=== PATIENT | male | born 1955 | race Caucasian/White ===

== ENCOUNTER → 2016-12-04 | Outpatient (REF) | payer OTHER ==
[~2016-12-04] MED LIST: ADV250INH INH; ASPI325T PO; FLEC50TA PO; PRIL20CA9 PO; TYLE325T5 PO; ZEBE5TAB PO
[2016-12-04 12:47] LABS: MEAN CORPUSCULAR HEMOGLOBIN 33.1 pg (27.0-33.0); MEAN CORPUSCULAR HGB CONC 33.1 g/dl (32.0-36.5); MEAN CORPUSCULAR VOLUME 99.8 fl (80.0-96.0); RED CELL DISTRIBUTION WIDTH 13.3 % (11.5-14.5); WHITE BLOOD COUNT 6.6 K/mm3 (4.0-10.0)
[2016-12-04 13:06] LABS: ALBUMIN 3.9 GM/DL (3.2-5.2); ALKALINE PHOSPHATASE 45 U/L (45-117); ALT/SGPT 23 U/L (12-78); ANION GAP 10 MEQ/L (8-16); AST/SGOT 7 U/L (15-37); BILIRUBIN,TOTAL 0.6 MG/DL (0.2-1.0); BLOOD UREA NITROGEN 10 MG/DL (7-18); CALCIUM LEVEL 9.4 MG/DL (8.5-10.1); CARBON DIOXIDE LEVEL 30 MEQ/L (21-32); CHLORIDE LEVEL 104 MEQ/L (98-107); CREATININE FOR GFR 1.08 MG/DL (0.70-1.30); GLOMERULAR FILTRATION RATE > 60.0 (>56); GLUCOSE, FASTING 88 MG/DL (70-105); SODIUM LEVEL 144 MEQ/L (136-145); TOTAL PROTEIN 7.8 GM/DL (6.4-8.2)
== END ==
LOC: M SFHCADAM 07:50
PROVIDERS: ATTEND Family Medicine
DX: I48.0 Paroxysmal atrial fibrillation (principal); Z12.5 Encounter for screening for malignant neoplasm of prostate

== ENCOUNTER → 2017-12-04 | Outpatient (REF) | payer OTHER ==
[2017-12-04 12:53] LABS: HEMATOCRIT 40.2 % (42.0-52.0); HEMOGLOBIN 13.7 g/dl (13.5-17.5); MEAN CORPUSCULAR HEMOGLOBIN 33.1 pg (27.0-33.0); MEAN CORPUSCULAR HGB CONC 34.1 g/dl (32.0-36.5); MEAN CORPUSCULAR VOLUME 97.1 fl (80.0-96.0); PLATELET COUNT, AUTOMATED 233 10^3/uL (150-450); RED BLOOD COUNT 4.14 10^6/uL (4.30-6.10); RED CELL DISTRIBUTION WIDTH 12.8 % (11.5-14.5); WHITE BLOOD COUNT 7.1 10^3/uL (4.0-10.0)
[2017-12-04 13:11] LABS: ALBUMIN 3.9 GM/DL (3.2-5.2); ALBUMIN/GLOBULIN RATIO 1.05 (1.00-1.93); ALKALINE PHOSPHATASE 46 U/L (45-117); ALT/SGPT 23 U/L (12-78); ANION GAP 4 MEQ/L (8-16); AST/SGOT 11 U/L (7-37); BILIRUBIN,TOTAL 0.5 MG/DL (0.2-1.0); BLOOD UREA NITROGEN 10 MG/DL (7-18); CALCIUM LEVEL 8.7 MG/DL (8.8-10.2); CARBON DIOXIDE LEVEL 31 MEQ/L (21-32); CHLORIDE LEVEL 108 MEQ/L (98-107); CHOLESTEROL LEVEL 182 MG/DL (<200); CHOLESTEROL RISK RATIO 2.843 (<5); CREATININE FOR GFR 0.96 MG/DL (0.70-1.30); GLOMERULAR FILTRATION RATE > 60.0 (>49); GLUCOSE, FASTING 97 MG/DL (70-100); HDL CHOLESTEROL 64 MG/DL (>40); LDL CHOLESTEROL 97.2 MG/DL (<100); NON-HDL-C 118 MG/DL; POTASSIUM SERUM 3.9 MEQ/L (3.5-5.1); PSA SCREENING 0.67 NG/ML (< 4.0); SODIUM LEVEL 143 MEQ/L (136-145); TOTAL PROTEIN 7.6 GM/DL (6.4-8.2); TRIGLYCERIDES LEVEL 104 MG/DL (<150)
== END ==
LOC: M SFHCADAM 09:18
DX: J44.9 Chronic obstructive pulmonary disease, unspecified (principal); I48.0 Paroxysmal atrial fibrillation; Z12.5 Encounter for screening for malignant neoplasm of prostate

== ENCOUNTER → 2018-05-06 | Outpatient (CLI) | payer BC, OTHER | LOC: M RAD 15:24 | DX: Z12.2 Encounter for screening for malignant neoplasm of respiratory organs (principal); Z87.891 Personal history of nicotine dependence | CPT/HCPCS: G0297 ==

== ENCOUNTER → 2018-12-24 | Outpatient (REF) | payer OTHER ==
[~2018-12-24] MED LIST changes: +ASPI-1 PO; -ASPI325T PO; +FLEC50HA PO; -FLEC50TA PO
[2018-12-24 13:10] LABS: HEMATOCRIT 44.7 % (42.0-52.0); HEMOGLOBIN 14.8 g/dl (13.5-17.5); MEAN CORPUSCULAR HEMOGLOBIN 33.1 pg (27.0-33.0); MEAN CORPUSCULAR HGB CONC 33.1 g/dl (32.0-36.5); PLATELET COUNT, AUTOMATED 280 10^3/uL (150-450); RED BLOOD COUNT 4.47 10^6/uL (4.30-6.10); WHITE BLOOD COUNT 7.6 10^3/uL (4.0-10.0)
[2018-12-24 13:28] LABS: ALBUMIN 3.4 GM/DL (3.2-5.2); ALT/SGPT 27 U/L (12-78); BILIRUBIN,TOTAL 0.4 MG/DL (0.2-1.0); BLOOD UREA NITROGEN 14 MG/DL (7-18); CALCIUM LEVEL 8.6 MG/DL (8.8-10.2); CARBON DIOXIDE LEVEL 29 MEQ/L (21-32); CHLORIDE LEVEL 104 MEQ/L (98-107); CHOLESTEROL LEVEL 212 MG/DL (<200); CHOLESTEROL RISK RATIO 3.719 (<5); CREATININE FOR GFR 1.06 MG/DL (0.70-1.30); GLOMERULAR FILTRATION RATE > 60.0 (>49); GLUCOSE, FASTING 94 MG/DL (70-100); HDL CHOLESTEROL 57 MG/DL (>40); LDL CHOLESTEROL 131 MG/DL (<100); NON-HDL-C 155 MG/DL; POTASSIUM SERUM 4.4 MEQ/L (3.5-5.1); SODIUM LEVEL 140 MEQ/L (136-145); TOTAL PROTEIN 7.6 GM/DL (6.4-8.2); TRIGLYCERIDES LEVEL 120 MG/DL (<150)
== END ==
LOC: M SFHCADAM 09:08
PROVIDERS: ATTEND Family Medicine
DX: Z12.5 Encounter for screening for malignant neoplasm of prostate (principal); E78.5 Hyperlipidemia, unspecified; I48.0 Paroxysmal atrial fibrillation; J44.9 Chronic obstructive pulmonary disease, unspecified
CPT/HCPCS: 80053; 80061; 85027; G0103

== ENCOUNTER → 2019-07-24 | Outpatient (REF) | payer OTHER | LOC: M LAB REF 18:46 | PROVIDERS: ATTEND Dermatology | DX: D22.5 Melanocytic nevi of trunk (principal) ==

== ENCOUNTER → 2019-08-14 | Outpatient (CLI) | payer BC, OTHER ==
--- NOTE | 2019-08-14 19:33 | REP ---
Chest CT without contrast: Low-dose screening exam. History: History of nicotine dependence. Comparison screening exam May 06, 2018. Comparison chest CT study December 10, 2013. CT findings: The lungs are somewhat hyperinflated on strategic marketing specialist image. There are patchy areas of subpleural fibrosis in the right lower lobe and there are emphysematous changes in the upper lobes bilaterally. The emphysematous changes are stable. The subpleural fibrotic changes in the right lower lobe appears slightly more prominent. There is some linear plate-like atelectasis in the right base as well. No significant pulmonary nodule is appreciated. Impression: Findings consistent with COPD with bilateral upper lobe emphysematous changes and scattered areas of interstitial fibrosis in the right base. The fibrotic changes are somewhat more pronounced today. Lung RADS category II pattern. Repeat screening study indicated in 1 year. Electronically Signed by Cameron Uribe MD 08/14/2019 09:14 P
== END ==
LOC: M RAD 14:24
PROVIDERS: ATTEND Internal Medicine Pulmonary Disease
DX: Z87.891 Personal history of nicotine dependence (principal); R91.8 Other nonspecific abnormal finding of lung field

== ENCOUNTER → 2020-01-13 | Outpatient (REF) | payer OTHER ==
[2020-01-13 13:07] LABS: HEMATOCRIT 37.8 % (42.0-52.0); HEMOGLOBIN 13.1 g/dl (13.5-17.5); MEAN CORPUSCULAR HEMOGLOBIN 34.7 pg (27.0-33.0); MEAN CORPUSCULAR HGB CONC 34.7 g/dl (32.0-36.5); PLATELET COUNT, AUTOMATED 238 10^3/uL (150-450); RED BLOOD COUNT 3.78 10^6/uL (4.30-6.10); WHITE BLOOD COUNT 4.6 10^3/uL (4.0-10.0)
[2020-01-13 13:13] LABS: ALBUMIN 3.5 GM/DL (3.2-5.2); ALT/SGPT 20 U/L (12-78); BILIRUBIN,TOTAL 0.5 MG/DL (0.2-1.0); BLOOD UREA NITROGEN 13 MG/DL (7-18); CALCIUM LEVEL 8.8 MG/DL (8.8-10.2); CARBON DIOXIDE LEVEL 30 MEQ/L (21-32); CHLORIDE LEVEL 107 MEQ/L (98-107); CHOLESTEROL LEVEL 180 MG/DL (<200); CHOLESTEROL RISK RATIO 3.214 (<5); CREATININE FOR GFR 1.03 MG/DL (0.70-1.30); GLOMERULAR FILTRATION RATE > 60.0 (>49); GLUCOSE, FASTING 89 MG/DL (70-100); HDL CHOLESTEROL 56 MG/DL (>40); LDL CHOLESTEROL 110 MG/DL (<100); NON-HDL-C 124 MG/DL; POTASSIUM SERUM 4.8 MEQ/L (3.5-5.1); SODIUM LEVEL 141 MEQ/L (136-145); TOTAL PROTEIN 7.1 GM/DL (6.4-8.2); TRIGLYCERIDES LEVEL 72 MG/DL (<150)
== END ==
LOC: M SFHCADAM 08:30
PROVIDERS: ATTEND Family Medicine
DX: I48.0 Paroxysmal atrial fibrillation (principal); I10 Essential (primary) hypertension; E78.5 Hyperlipidemia, unspecified; Z12.5 Encounter for screening for malignant neoplasm of prostate

== ENCOUNTER → 2020-08-18 | Outpatient (CLI) | payer BC, OTHER ==
--- NOTE | 2020-08-19 05:39 | REP ---
INDICATION: PERSONAL HISTORY OF NICOTINE DEPENDENCE COMPARISON: 08/14/2019, 05/06/2018 TECHNIQUE: Axial noncontrast images from the thoracic inlet to the upper abdomen using low-dose lung screening technique (LDCT). FINDINGS: Chronic emphysematous changes along with minimal and primarily right basilar subpleural fibrosis and trace scarring again noted. Small 3 mm nodule in the posterior subpleural right lower lobe (image 80) and small non solid 3 mm lesion in the left upper lobe (image 30) rim present new findings and likely progressive chronic change rather than suspicious lesions. No effusion. No pneumothorax. Tracheobronchial tree demonstrates mild chronic bronchiectasis. IMPRESSION: Lung-RADS category 2. Small 3 mm solid and part solid nodule lesions likely represent progressive chronic change and less likely significant acute process. Management recommendations include annual low-dose CT surveillance. <Electronically signed by Lennox Fernandez > 08/19/20 0535
== END ==
LOC: M RAD 11:11
PROVIDERS: ATTEND Internal Medicine Pulmonary Disease
DX: Z12.2 Encounter for screening for malignant neoplasm of respiratory organs (principal); R91.8 Other nonspecific abnormal finding of lung field; Z79.891 Long term (current) use of opiate analgesic

== ENCOUNTER → 2020-09-28 | Outpatient (REF) | payer BC, OTHER ==
[2020-09-28 13:27] LABS: BLOOD UREA NITROGEN 18 MG/DL (7-18); CALCIUM LEVEL 9.3 MG/DL (8.8-10.2); CARBON DIOXIDE LEVEL 31 MEQ/L (21-32); CHLORIDE LEVEL 107 MEQ/L (98-107); CREATININE FOR GFR 1.28 MG/DL (0.70-1.30); GLOMERULAR FILTRATION RATE > 60.0 (>49); GLUCOSE, FASTING 106 MG/DL (70-100); POTASSIUM SERUM 4.5 MEQ/L (3.5-5.1); SODIUM LEVEL 143 MEQ/L (136-145)
== END ==
LOC: M LABDRWAD 12:20
PROVIDERS: ATTEND Internal Medicine Cardiovascular Disease
DX: I48.19 Other persistent atrial fibrillation (principal)

== ENCOUNTER → 2020-10-26 | Outpatient (REF) | payer OTHER ==
[2020-10-26 13:40] LABS: BLOOD UREA NITROGEN 15 MG/DL (7-18); CALCIUM LEVEL 9.4 MG/DL (8.8-10.2); CARBON DIOXIDE LEVEL 32 MEQ/L (21-32); CHLORIDE LEVEL 106 MEQ/L (98-107); CREATININE FOR GFR 1.13 MG/DL (0.70-1.30); GLOMERULAR FILTRATION RATE > 60.0 (>49); GLUCOSE, FASTING 99 MG/DL (70-100); POTASSIUM SERUM 4.5 MEQ/L (3.5-5.1); SODIUM LEVEL 144 MEQ/L (136-145)
== END ==
LOC: M LABDRWAD 12:37
PROVIDERS: ATTEND Internal Medicine Cardiovascular Disease
DX: I48.19 Other persistent atrial fibrillation (principal)

== ENCOUNTER → 2021-01-31 | Outpatient (REF) | payer OTHER ==
[~2021-01-31] MED LIST changes: +BISO5TAB14; +ELIQ5TAB; +FLEC150T; +FLUT1BLS8
[2021-01-31 16:50] LABS: HEMATOCRIT 44.8 % (42.0-52.0); HEMOGLOBIN 14.5 g/dl (13.5-17.5); MEAN CORPUSCULAR HEMOGLOBIN 32.2 pg (27.0-33.0); MEAN CORPUSCULAR HGB CONC 32.4 g/dl (32.0-36.5); MEAN CORPUSCULAR VOLUME 99.6 fl (80.0-96.0); PLATELET COUNT, AUTOMATED 253 10^3/uL (150-450); WHITE BLOOD COUNT 6.9 10^3/uL (4.0-10.0)
[2021-01-31 17:20] LABS: ALBUMIN 3.4 GM/DL (3.2-5.2); ALT/SGPT 22 U/L (12-78); BILIRUBIN,TOTAL 0.4 MG/DL (0.2-1.0); BLOOD UREA NITROGEN 9 MG/DL (7-18); CALCIUM LEVEL 8.9 MG/DL (8.8-10.2); CARBON DIOXIDE LEVEL 29 MEQ/L (21-32); CHLORIDE LEVEL 105 MEQ/L (98-107); CHOLESTEROL LEVEL 180 MG/DL (<200); CHOLESTEROL RISK RATIO 3.333 (<5); CREATININE FOR GFR 1.05 MG/DL (0.70-1.30); FERRITIN 67 NG/ML (26-388); GLOMERULAR FILTRATION RATE > 60.0 (>49); GLUCOSE, FASTING 90 MG/DL (70-100); HDL CHOLESTEROL 54 MG/DL (>40); IRON (FE) 105 UG/DL (65-175); LDL CHOLESTEROL 107 MG/DL (<100); NON-HDL-C 126 MG/DL; PERCENT SATURATION 36.6 % (19.7-50.0); POTASSIUM SERUM 4.7 MEQ/L (3.5-5.1); SODIUM LEVEL 141 MEQ/L (136-145); TOTAL IRON BINDING CAPACITY 287 UG/DL (250-450); TOTAL PROTEIN 7.5 GM/DL (6.4-8.2); TRIGLYCERIDES LEVEL 97 MG/DL (<150)
[2021-01-31 17:26] LABS: FOLATE 11.7 NG/ML (>5.4)
[2021-02-01 09:00] LABS: VITAMIN B12 LEVEL 349 PG/ML (247-911)
== END ==
LOC: M SFHCADAM 11:53
PROVIDERS: ATTEND Family Medicine
DX: R06.00 Dyspnea, unspecified (principal); D64.9 Anemia, unspecified; E78.5 Hyperlipidemia, unspecified; Z12.5 Encounter for screening for malignant neoplasm of prostate
CPT/HCPCS: 80053; 80061; 82607; 82728; 82746; 83550; 85027; G0103

== ENCOUNTER 2021-06-17 07:02 | Emergency (ER) | payer BC, OTHER ==
[~2021-06-17] VITALS: Ht 182.9 cm; Wt 106.8 kg
[~2021-06-17 07:02] MED LIST changes: -BISO5TAB14; -ELIQ5TAB; -FLEC150T; -FLUT1BLS8
[2021-06-17] MEDS ORDERED: BISO5TAB14 (07:39)
[2021-06-17] MEDS ORDERED: ELIQ5TAB (07:39)
[2021-06-17] MEDS ORDERED: FLUT1BLS8 (07:39)
[2021-06-17] MEDS ORDERED: FLEC150T (07:39)
--- OUTSIDE RECORDS SUMMARY | 2021-06-17 08:18 | CCD | Continuity of Care Document ---
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 Role Phone Jevon Richardson MD [facility] [phone] Problems Description No Information Available Social History Type Date Description Comments Sex Unknown ETOH Use Occasionally consumes alcohol Tobacco Use Start: Unknown End: Unknown Patient is a former smoker Quit 2005 Smoking Status Reviewed: 01/25/20 Patient is a former smoker Qu it 2005 Allergies and adverse reactions Active Allergies Criticality Reaction | Severity Comments Date Penicillins Unable to assess criticality 09/25/2018 Medications Active Medications SIG Qnty Indications Ordering Provide r Date Omeprazole 20mg Capsules DR Unknown Advair Diskus 250-50mcg/Dose Aeros ol 1 puff twice a day Unknown Buspirone HCL 5mg Tablets Unknown Ventolin HFA 108(90Base) mcg/Act A erosol 2 puffs by mouth inhaled every 4-6 hours as needed Unknown Viagra 100mg Tablets use as d irected Unknown Immunizations CPT Code Status Date Vaccine Reaction Lot # [id number] Given 02/09/2019 Tdap/Tetanus, Di phth Toxoids/Acellular Pertussis Vac 7Yr Or > Pt tolerated well, no raction. [id number] Vital Signs Date Vital Result Comment 01/25/2020 6:36pm BP Systolic 128 mmHg BP Diastolic 90 mmHg Heart Rate 120 /min Irregular Respiratory Rate 18 /min O2 % BldC Oximetry 99 % Body Temperature 98.6 F Weight 218.00 lb Height 72 inches 6'0" BMI (Body Mass Index) 29.6 kg/m2 Pain Level 0 01/04/2020 12:13pm BP Systolic 111 mmHg BP Diastolic 80 mmHg Heart Rate 78 /min Respiratory Rate 18 /min O2 % BldC Oximetry 97 % Body Temperature 98.3 F Weight 218.00 lb Height 72 inches 6'0" BMI (Body Mass Index) 29.6 kg/m2 Pain Level 5 Results Description No Information Available Procedures Description No Information Available Medical Devices Description No Information Available Encounters Description No Information Available Assessments Date Code Description Provider 06/16/2021 Z20.828 Contact with and (ribera spected) exposure to other viral communicable diseases ROSE MARIE Tao Plan of Treatment No Information Available Functional Status Description No Information Available Mental Status Description No Information Available Referrals Description No Information Available
--- OUTSIDE RECORDS SUMMARY | 2021-06-17 08:18 | CCD | Continuity of Care Document ---
Author Author Shiva SCHMIDT MD Organization Unknown Address [address] [place] [address] Phone [phone] Care Team Providers Care Trauma Counsellor Name Role Phone Jevon Richardson M.D. AUTM [phone] Amauri Chery M.D. AUTM [phone] Problems Active Problems Provider Date Allergic rhinitis Ham Schmidt MD Onset: 07/27/2014 Atrial fibrillation Ham Schmidt MD Onset: 01/12/2014 Emphysematous bronchitis Ham Schmidt MD Onset: 02/20/20 13 Dyspnea Ham Schmidt MD Onset: 02/19/2013 Ex-smoker Ham Schmidt MD Onset: 02/19/2013 Obesity Ham Schmidt MD Onset: 02/19/2013 Social History Type Date Description Comments Sex Unknown Tobacco Use Start: Unknown End: Unknown Patient is a former smoker quit 10 years ago Smoking Status Reviewed: 04/03/21 Patient is a former smoker qu it 10 years ago Allergies, Adverse Reactions, Alerts Active Allergies Criticality Reaction | Severity Comments Date Penicillin Unable to assess criticality ?as a child 02/19/2013 Medications Active Medications SIG Qnty Indications Ordering Provide r Date Trelegy Ellipta 200- 62.5-25mcg/Inh Aerosol 1 inhalation once daily 60units J44.9 Ham Schmidt MD 04/03/[address] 1 by mouth every day 30caps Unknown Ventolin HFA 108(90Base) mcg/Act A erosol 2 puffs qid/prn 1units Unknown Flecainide Acetate 50mg Tablets 150mg twice daily Unknown Bisoprolol Fumarate 5mg Tablets 1/2 by mouth every day 30tabs Unknown Viagra 100mg Tablets as neede d Unknown History Medications Lisa Ellipta 100- 62.5-25mcg/Inh Aerosol 1 inhalation once daily 60units J44.9 Dilcia Green NJak Velarde. 02/28/2021 - 04/03/2021 Immunizations CPT Code Status Date Vaccine Lot # [id number] Given 04/24/2018 Influenza Virus Vaccine, Quadrivalent, Slit Virus, Im Use [id number] 38519 Given 05/30/2016 Influenza Virus Split 3 Yrs And Above For Intramuscular Use 32576 Given 04/11/2016 Influenza Virus Split 3 Yrs And Above For Intramuscular Use 25836 Given 05/06/2014 Influenza Virus Split 3 Yrs And Above For Intramuscular Use Q2036 Given 04/21/2013 Influenza Vaccine 3 Years Of Age Or Older (Flulaval) Q2036 Given 03/25/2012 Influenza Vaccine 3 Years Of Age Or Older (Flulaval) Vital Signs Date Vital Result Comment 04/03/2021 3:01pm BP Systolic 112 mmHg BP Diastolic 80 mmHg Heart Rate 68 /min O2 % BldC Oximetry 96 % Room Air Height 71.5 inches 5'11.50" Weight 241.00 lb BMI (Body Mass Index) 33.1 kg/m2 [place] Body Weight 172 lb Weight 109.318 kg BSA (Body Surface Area) 2.29 m2 02/28/2021 9:30am BP Systolic 126 mmHg BP Diastolic 72 mmHg Heart Rate 83 /min O2 % BldC Oximetry 96 % Height 71.5 inches 5'11.50" Weight 233.50 lb BMI (Body Mass Index) 32.1 kg/m2 [place] Body Weight 172 lb Weight 105.916 kg BSA (Body Surface Area) 2.26 m2 Results Test Acquired Date Facility Test Result H/L Range Note FVL/[place] 02/28/2021 [facility] SEE IMAGE FVC-Pred 4.93 L FVC-Pre 2.26 L FVC-%Pred-Pre 45 L FVC-LLN 3.95 L Fev1-Pred 3.70 L Fev1-Pre 1.33 L Fev1-%Pred-Pre 35 L Fev1-LLN 2.88 L Fev6-Pred 4.69 L Fev6-Pre 2.26 L Fev6-%Pred-Pre 48 L Fev6-LLN 3.75 L Zmx6tks-Bsxw 75 % Zcf1vqk-Hho 59 % Vmy5pmo-%Pred-Pre 78 % Lcw1udj-IBF 65 % Axo1eim-Ibrw 95 % Ctj7nxd-Aab 100 % Fal5jxd-%Pred-Pre 104 % FEFMax-Pred 9.33 L/E/sec FEFMax-Pre 4.55 L/E/sec FEFMax-%Pred-Pre 48 L/E/sec FEFMax-LLN 6.91 L/E/sec Qoe6515-Xnjn 2.97 L/E/sec Xtr9037-Wrj 0.75 L/E/sec Wkp8948-%Pred-Pre 25 L/E/sec Vhl4313-HJP 1.29 L/E/sec ExpTime-Pre 3.81 sec Frf8wjg4-Hvfp 79 % Kay5jkb4-Phr 59 % Qkh7mgu4-%Pred-Pre 74 % Fji5snl8-PNU 70 % Procedures Date Code Description Status 04/03/2021 81464 Office/Outpatient Established Mo d MDM 30-39 Min Completed 04/03/2021 61373 Spirometry Completed 02/28/2021 53521 Office/Outpatient Established Mo d MDM 30-39 Min Completed 02/28/2021 40932 Spirometry Completed Medical Devices Description No Information Available Encounters Type Date Location Provider Dx Diagnosis Office Visit 04/03/2021 3:00p [facility] Catherine Schmidt MD J43.9 Emphysema, unspecified Z79.02 USP (current) use of a ntithrombotics/antiplatelets Z87.891 Personal history of nicotine dependence Office Visit 02/28/2021 9:30a [facility] Tawana Green, N.P. Z87.891 Personal history of nicotine dependence J43.9 Emphysema, unspecified Assessments Date Code Description Provider 04/03/2021 J43.9 Emphysema, unspecified Ham Schmidt MD 04/03/2021 Z79.02 USP (current) use of antit hrombotics/antiplatelets Ham Schmidt MD 04/03/2021 Z87.891 Personal history of nicotine dep endence Ham Schmidt MD 02/28/2021 Z87.891 Personal history of nicotine dep endence Dilcia Green, N.PJak 02/28/2021 J43.9 Emphysema, unspecified Asha Green, N.P. Plan of Treatment Future Appointment(s):* 08/31/2021 1:30 pm - Ham Schmidt MD at [facility] 04/03/2021 - Ham Schmidt MD* J43.9 Emphysema, unspecified * Z79.02 emt intermediate (current) use of antithrombotics/antiplatelets * Z87.891 Personal history of nicotine dependence * * Comments:* ~ At this point, we will increase the dose of his Trelegy to 200 mcg Ellipta. He is to continue his rescue inhalers as need be. We discussed routine infection surveillance.~ He will be due for his last low-dose CT scan in July, as that will get us 15 years out from his smoking. He, certainly, can call sooner if problems arise with which we can be of assistance. Immunizations kept up to date through primary. * Follow up:* Follow up in four months with spirometry, oximetry and flow volume loop/ LDCT Functional Status Description No Information Available Mental Status Description No Information Available Referrals Description No Information Available
--- OUTSIDE RECORDS SUMMARY | 2021-06-17 08:18 | CCD | Continuity of Care Document ---
Author Author Shiva SCHMIDT MD Organization Unknown Address [address] [place] [address] Phone [phone] Care Team Providers Care Scale Adjuster Name Role Phone Jevon Richardson M.D. AUTM [phone] Amauri Chery M.D. AUTM [phone] Problems Active Problems Provider Date Allergic rhinitis [...] CPT Code Status Date Vaccine Lot # 35641 Given 04/24/2018 Influenza Virus Vaccine, Quadrivalent, Slit Virus, Im Use [id number] 73869 Given 05/30/2016 Influenza Virus Split 3 Yrs And Above For Intramuscular Use 07153 Given 04/11/2016 Influenza Virus Split 3 Yrs And Above For Intramuscular Use 04783 Given 05/06/2014 Influenza Virus Split 3 Yrs [...] lb BMI (Body Mass Index) 33.1 kg/m2 [place] Body Weight 172 lb Weight 109.318 kg BSA (Body Surface Area) 2.29 m2 02/28/2021 9:30am BP Systolic 126 mmHg BP Diastolic 72 mmHg Heart Rate 83 /min O2 % BldC Oximetry 96 % Height 71.5 inches 5'11.50" Weight 233.50 lb BMI (Body Mass Index) 32.1 kg/m2 [place] Body Weight 172 lb Weight 105.916 kg BSA (Body Surface Area) 2.26 m2 Results Test Acquired Date Facility Test Result H/L Range Note FVL/[place] 02/28/2021 [facility] SEE IMAGE FVC-Pred 4.93 L FVC-Pre 2.26 L FVC-%Pred-Pre 45 L FVC-LLN 3.95 L Fev1-Pred 3.70 L Fev1-Pre 1.33 L Fev1-%Pred-Pre 35 L Fev1-LLN 2.88 L Fev6-Pred 4.69 L Fev6-Pre 2.26 L Fev6-%Pred-Pre 48 L Fev6-LLN 3.75 L Icu3ugt-Lfyx 75 % Shv3owe-Ibf 59 % Snf0rhf-%Pred-Pre 78 % Yen0meg-QPR 65 % Bis7kbi-Beap 95 % Tsv8rqk-Ayx 100 % Mwq8xzt-%Pred-Pre 104 % FEFMax-Pred 9.33 L/E/sec FEFMax-Pre 4.55 L/E/sec FEFMax-%Pred-Pre 48 L/E/sec FEFMax-LLN 6.91 L/E/sec Wqd5668-Hugs 2.97 L/E/sec Qxo3943-Vre 0.75 L/E/sec Vvc4935-%Pred-Pre 25 L/E/sec Lse9452-BAN 1.29 L/E/sec ExpTime-Pre 3.81 sec Urj3www6-Vlcs 79 % Cng0krb1-Gqs 59 % Mmk1oel6-%Pred-Pre 74 % Ohp2rcx2-UZC 70 % Procedures Date Code Description Status 02/28/2021 21087 Office/Outpatient Established Mo d MDM 30-39 Min Completed 02/28/2021 51243 Spirometry Completed Medical Devices Description No Information Available Encounters Type Date Location Provider Dx Diagnosis Office Visit 02/28/2021 9:30a [facility] Tawana Green helsarpan, N.P. 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 02/28/2021 J43.9 Emphysema, unspecified Asha Green, N.P. Plan of Treatment Future Appointment(s):* 08/31/2021 1:30 pm - Ham Schmidt MD at [facility] 04/03/2021 - Ham Schmidt MD* J44.9 Chronic obstructive pulmonary disease, unspecified * J43.9 Emphysema, unspecified * Z87.891 Personal history of nicotine dependence * Z79.02 half-way (current) use of antithrombotics/antiplatelets * * New Medication:* Trelegy Ellipta 200-62.5-25 mcg/Inh * New Labs:* FVL/[place], Ordered: 04/03/21 * Follow up:* Follow up in four months with spirometry, oximetry and flow volume loop/ LDCT Functional Status Description No Information Available Mental Status Description No Information Available Referrals Description No Information Available
--- OUTSIDE RECORDS SUMMARY | 2021-06-17 08:18 | CCD | Continuity of Care Document ---
Author Author Shiva SCHMIDT MD Organization Unknown Address [address] [place] [address] Phone [phone] Care Team Providers Care Bakery Pastry Internship Name Role Phone Jevon Richardson M.D. AUTM [phone] Amauri Chery M.D. AUTM [phone] Problems Active Problems Provider Date Allergic rhinitis [...] CPT Code Status Date Vaccine Lot # 37288 Given 04/24/2018 Influenza Virus Vaccine, Quadrivalent, Slit Virus, Im Use [id number] 44529 Given 05/30/2016 Influenza Virus Split 3 Yrs And Above For Intramuscular Use 34248 Given 04/11/2016 Influenza Virus Split 3 Yrs And Above For Intramuscular Use 74237 Given 05/06/2014 Influenza Virus Split 3 Yrs [...] lb BMI (Body Mass Index) 33.1 kg/m2 [place] Body Weight 172 lb Weight 109.318 kg BSA (Body Surface Area) 2.29 m2 02/28/2021 9:30am BP Systolic 126 mmHg BP Diastolic 72 mmHg Heart Rate 83 /min O2 % BldC Oximetry 96 % Height 71.5 inches 5'11.50" Weight 233.50 lb BMI (Body Mass Index) 32.1 kg/m2 [place] Body Weight 172 lb Weight 105.916 kg BSA (Body Surface Area) 2.26 m2 Results Test Acquired Date Facility Test Result H/L Range Note FVL/[place] 02/28/2021 [facility] SEE IMAGE FVC-Pred 4.93 L FVC-Pre 2.26 L FVC-%Pred-Pre 45 L FVC-LLN 3.95 L Fev1-Pred 3.70 L Fev1-Pre 1.33 L Fev1-%Pred-Pre 35 L Fev1-LLN 2.88 L Fev6-Pred 4.69 L Fev6-Pre 2.26 L Fev6-%Pred-Pre 48 L Fev6-LLN 3.75 L Dmr3pxz-Aeav 75 % Gmv9kyv-Wdw 59 % Nnq4sap-%Pred-Pre 78 % Sdb6hwy-WRW 65 % Acz7brf-Rsbx 95 % Moh8rcj-Rgm 100 % Vxv5xdl-%Pred-Pre 104 % FEFMax-Pred 9.33 L/E/sec FEFMax-Pre 4.55 L/E/sec FEFMax-%Pred-Pre 48 L/E/sec FEFMax-LLN 6.91 L/E/sec Mwl3198-Fvrs 2.97 L/E/sec Wdx9504-Zht 0.75 L/E/sec Roj6246-%Pred-Pre 25 L/E/sec Oju6874-OFR 1.29 L/E/sec ExpTime-Pre 3.81 sec Okv1gjn4-Depk 79 % Bsj1gba8-Ywl 59 % Wfe6ahj0-%Pred-Pre 74 % Bng3miz2-UYD 70 % Procedures Date Code Description Status 02/28/2021 80512 Office/Outpatient Established Mo d MDM 30-39 Min Completed 02/28/2021 49335 Spirometry Completed Medical Devices Description No Information Available Encounters Type Date Location Provider Dx Diagnosis Office Visit 02/28/2021 9:30a [facility] Tawana Green helsarpan, N.P. 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 02/28/2021 J43.9 Emphysema, unspecified Asha Green, N.P. Plan of Treatment Future Appointment(s):* 08/31/2021 1:30 pm - Ham Schmidt MD at [facility] 04/03/2021 - Ham Schmidt MD* J44.9 Chronic obstructive pulmonary disease, unspecified * J43.9 Emphysema, unspecified * Z87.891 Personal history of nicotine dependence * Z79.02 jail (current) use of antithrombotics/antiplatelets * * New Medication:* Trelegy Ellipta 200-62.5-25 mcg/Inh * New Labs:* FVL/[place], Ordered: 04/03/21 * Follow up:* Follow up in four months with spirometry, oximetry and flow volume loop/ LDCT Functional Status Description No Information Available Mental Status Description No Information Available Referrals Description No Information Available
--- OUTSIDE RECORDS SUMMARY | 2021-06-17 08:18 | CCD | Continuity of Care Document ---
Author Author Shiva GREEN N.Prachi. Organization Unknown Address [address] [place] [address] Phone [phone] Care Team Providers Care Blasting Coal Miner Name Role Phone Jevon Richardson M.D. AUTM [phone] Amauri Chery M.D. AUTM [phone] Problems Active Problems Provider Date Allergic rhinitis [...] quit 10 years ago Smoking Status Reviewed: 02/28/21 Patient is a former smoker qu it 10 years ago Allergies, Adverse Reactions, Alerts Active Allergies Criticality Reaction | Severity Comments Date Penicillin Unable to assess criticality ?as a child 02/19/2013 Medications Active Medications SIG Qnty Indications Ordering Provide r Date Trelegy Ellipta 100- 62.5-25mcg/Inh Aerosol 1 inhalation once daily 60units J44.9 Dilcia Green, N. PJak 02/28/[address] 1 by mouth every day 30caps Unknown Ventolin HFA 108(90Base) mcg/Act A erosol 2 puffs qid/prn 1units Unknown Flecainide Acetate 50mg Tablets 150mg twice daily Unknown Bisoprolol Fumarate 5mg Tablets 1/2 by mouth every day 30tabs Unknown Viagra 100mg Tablets as neede d Unknown Immunizations CPT Code Status Date Vaccine Lot # [id number] Given 04/24/2018 Influenza Virus Vaccine, Quadrivalent, Slit Virus, Im Use [id number] 99132 Given 05/30/2016 Influenza Virus Split 3 Yrs And Above For Intramuscular Use 37289 Given 04/11/2016 Influenza Virus Split 3 Yrs And Above For Intramuscular Use 97198 Given 05/06/2014 Influenza Virus Split 3 Yrs And Above For Intramuscular Use Q2036 Given 04/21/2013 Influenza Vaccine 3 Years Of Age Or Older (Flulaval) Q2036 Given 03/25/2012 Influenza Vaccine 3 Years Of Age Or Older (Flulaval) Vital Signs Date Vital Result Comment 02/28/2021 9:30am BP Systolic 126 mmHg BP Diastolic 72 mmHg Heart Rate 83 /min O2 % BldC Oximetry 96 % Height 71.5 inches 5'11.50" Weight 233.50 lb BMI (Body Mass Index) 32.1 kg/m2 [place] Body Weight 172 lb Weight 105.916 kg BSA (Body Surface Area) 2.26 m2 08/22/2020 2:22pm BP Systolic 120 mmHg BP Diastolic 80 mmHg Heart Rate 88 /min O2 % BldC Oximetry 97 % Body Temperature 95.9 F Height 71.5 inches 5'11.50" Weight 232.00 lb BMI (Body Mass Index) 31.9 kg/m2 [place] Body Weight 172 lb Weight 105.235 kg BSA (Body Surface Area) 2.26 m2 Results Test Acquired Date Facility Test Result H/L Range Note FVL/[place] 02/28/2021 [employer] [facility] SEE IMAGE FVC-Pred 4.93 L FVC-Pre 2.26 L FVC-%Pred-Pre 45 L FVC-LLN 3.95 L Fev1-Pred 3.70 L Fev1-Pre 1.33 L Fev1-%Pred-Pre 35 L Fev1-LLN 2.88 L Fev6-Pred 4.69 L Fev6-Pre 2.26 L Fev6-%Pred-Pre 48 L Fev6-LLN 3.75 L Mdm7cta-Xwfz 75 % Tey9otw-Cfd 59 % Wmj2zmk-%Pred-Pre 78 % Vip2ecb-TEU 65 % Mzb4auq-Bwci 95 % Ufr8rbl-Fnr 100 % Rxb2hrl-%Pred-Pre 104 % FEFMax-Pred 9.33 L/E/sec FEFMax-Pre 4.55 L/E/sec FEFMax-%Pred-Pre 48 L/E/sec FEFMax-LLN 6.91 L/E/sec Azk7773-Bnjj 2.97 L/E/sec Ons4160-Kos 0.75 L/E/sec Xxk5739-%Pred-Pre 25 L/E/sec Mzj1894-RXP 1.29 L/E/sec ExpTime-Pre 3.81 sec Rfc3rbr6-Kzjv 79 % Vab9rts1-God 59 % Cvd7aya2-%Pred-Pre 74 % Miz5wag6-LKQ 70 % Procedures Date Code Description Status 02/28/2021 31640 Office/Outpatient Established Mo d MDM 30-39 Min Completed 02/28/2021 47393 Spirometry Completed Medical Devices Description No Information Available Encounters Type Date Location Provider Dx Diagnosis Office Visit 02/28/2021 9:30a [facility] Tawana Green, N.P. Z87.891 Personal history of nicotine dependence J43.9 Emphysema, unspecified Assessments Date Code Description Provider 02/28/2021 Z87.891 Personal history of nicotine dep endence Dilcia Green, N.PJak 02/28/2021 J43.9 Emphysema, unspecified Asha Green, N.P. Plan of Treatment Future Appointment(s):* 04/07/2021 9:15 am - Ham Schmidt MD at [facility] 02/28/2021 - Dilcia Green, N.P.* Z87.891 Personal history of nicotine dependence * J43.9 Emphysema, unspecified * * Follow up:* Follow up in 4-6 weeks with anthony/FVL with Dr. Schmidt. Functional Status Description No Information Available Mental Status Description No Information Available Referrals Description No Information Available
--- OUTSIDE RECORDS SUMMARY | 2021-06-17 08:18 | CCD | Continuity of Care Document ---
Author Author Shiva SCHMIDT MD Organization Unknown Address [address] [place] [address] Phone [phone] Care Team Providers Care Paving Machine Operator Name Role Phone Jevon Richardson M.D. AUTM [phone] Amauri Chery M.D. AUTM [phone] Problems Active Problems Provider Date Allergic rhinitis [...] CPT Code Status Date Vaccine Lot # [id number] Given 04/24/2018 Influenza Virus Vaccine, Quadrivalent, Slit Virus, Im Use [id number] 82205 Given 05/30/2016 Influenza Virus Split 3 Yrs And Above For Intramuscular Use 82002 Given 04/11/2016 Influenza Virus Split 3 Yrs And Above For Intramuscular Use 32831 Given 05/06/2014 Influenza Virus Split 3 Yrs [...] lb BMI (Body Mass Index) 33.1 kg/m2 [place] Body Weight 172 lb Weight 109.318 kg BSA (Body Surface Area) 2.29 m2 02/28/2021 9:30am BP Systolic 126 mmHg BP Diastolic 72 mmHg Heart Rate 83 /min O2 % BldC Oximetry 96 % Height 71.5 inches 5'11.50" Weight 233.50 lb BMI (Body Mass Index) 32.1 kg/m2 [place] Body Weight 172 lb Weight 105.916 kg BSA (Body Surface Area) 2.26 m2 Results Test Acquired Date Facility Test Result H/L Range Note FVL/[place] 02/28/2021 [facility] SEE IMAGE FVC-Pred 4.93 L FVC-Pre 2.26 L FVC-%Pred-Pre 45 L FVC-LLN 3.95 L Fev1-Pred 3.70 L Fev1-Pre 1.33 L Fev1-%Pred-Pre 35 L Fev1-LLN 2.88 L Fev6-Pred 4.69 L Fev6-Pre 2.26 L Fev6-%Pred-Pre 48 L Fev6-LLN 3.75 L Ztv0yzq-Jdcl 75 % Pcl6myv-Ykj 59 % Ewj7onn-%Pred-Pre 78 % Ych4ipv-NLG 65 % Iry5sgn-Jtcv 95 % Kxo4yim-Ltw 100 % Qrw6uxy-%Pred-Pre 104 % FEFMax-Pred 9.33 L/E/sec FEFMax-Pre 4.55 L/E/sec FEFMax-%Pred-Pre 48 L/E/sec FEFMax-LLN 6.91 L/E/sec Ams9816-Kiuz 2.97 L/E/sec Axk8233-Pel 0.75 L/E/sec Xrb6619-%Pred-Pre 25 L/E/sec Cqw9525-VBI 1.29 L/E/sec ExpTime-Pre 3.81 sec Msd1kps5-Wzdr 79 % Hkh1ymd6-Xpi 59 % Jiv0wqj2-%Pred-Pre 74 % Zmp7nml1-KMI 70 % Procedures Date Code Description Status 02/28/2021 65645 Office/Outpatient Established Mo d MDM 30-39 Min Completed 02/28/2021 49152 Spirometry Completed Medical Devices Description No Information Available Encounters Type Date Location Provider Dx Diagnosis Office Visit 02/28/2021 9:30a [facility] Pulmonary/Thoracic Tawana Green helsarpan, N.P. 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 02/28/2021 J43.9 Emphysema, unspecified Asha Green, N.P. Plan of Treatment Future Appointment(s):* 08/31/2021 1:30 pm - Ham Schmidt MD at [facility] Pulmonary/Thoracic 04/03/2021 - Ham Schmidt MD* J44.9 Chronic obstructive pulmonary disease, unspecified * J43.9 Emphysema, unspecified * Z87.891 Personal history of nicotine dependence * Z79.02 retirement (current) use of antithrombotics/antiplatelets * * New Medication:* Trelegy Ellipta 200-62.5-25 mcg/Inh * New Labs:* FVL/[place], Ordered: 04/03/21 * Follow up:* Follow up in four months with spirometry, oximetry and flow volume loop/ LDCT Functional Status Description No Information Available Mental Status Description No Information Available Referrals Description No Information Available
--- OUTSIDE RECORDS SUMMARY | 2021-06-17 08:18 | CCD | Continuity of Care Document ---
Author Author Shiva SCHMIDT MD Organization Unknown Address [address] [place] [address] Phone [phone] Care Team Providers Care Maid Housekeeper Name Role Phone Jevon Richardson M.D. AUTM [phone] Amauri Chery M.D. AUTM [phone] Problems Active Problems Provider Date Allergic rhinitis [...] CPT Code Status Date Vaccine Lot # 26050 Given 04/24/2018 Influenza Virus Vaccine, Quadrivalent, Slit Virus, Im Use [id number] 59903 Given 05/30/2016 Influenza Virus Split 3 Yrs And Above For Intramuscular Use 62114 Given 04/11/2016 Influenza Virus Split 3 Yrs And Above For Intramuscular Use 63255 Given 05/06/2014 Influenza Virus Split 3 Yrs [...] lb BMI (Body Mass Index) 33.1 kg/m2 [place] Body Weight 172 lb Weight 109.318 kg BSA (Body Surface Area) 2.29 m2 02/28/2021 9:30am BP Systolic 126 mmHg BP Diastolic 72 mmHg Heart Rate 83 /min O2 % BldC Oximetry 96 % Height 71.5 inches 5'11.50" Weight 233.50 lb BMI (Body Mass Index) 32.1 kg/m2 [place] Body Weight 172 lb Weight 105.916 kg BSA (Body Surface Area) 2.26 m2 Results Test Acquired Date Facility Test Result H/L Range Note FVL/[place] 02/28/2021 [facility] SEE IMAGE FVC-Pred 4.93 L FVC-Pre 2.26 L FVC-%Pred-Pre 45 L FVC-LLN 3.95 L Fev1-Pred 3.70 L Fev1-Pre 1.33 L Fev1-%Pred-Pre 35 L Fev1-LLN 2.88 L Fev6-Pred 4.69 L Fev6-Pre 2.26 L Fev6-%Pred-Pre 48 L Fev6-LLN 3.75 L Xec9qkr-Dxpf 75 % Wot5hpj-Aud 59 % Rve7xka-%Pred-Pre 78 % Jrl4fvw-EBN 65 % Yft3adf-Vpmm 95 % Pgh4fsz-Obz 100 % Qbr4nzd-%Pred-Pre 104 % FEFMax-Pred 9.33 L/E/sec FEFMax-Pre 4.55 L/E/sec FEFMax-%Pred-Pre 48 L/E/sec FEFMax-LLN 6.91 L/E/sec Pzf5624-Rcni 2.97 L/E/sec Sba5399-Zwh 0.75 L/E/sec Hkk0828-%Pred-Pre 25 L/E/sec Uxj1630-GRB 1.29 L/E/sec ExpTime-Pre 3.81 sec Zjp4rre9-Bnrm 79 % Cmj3yyg6-Fig 59 % Wyx2zvt7-%Pred-Pre 74 % Pkq4tdo0-TPP 70 % Procedures Date Code Description Status 02/28/2021 28119 Office/Outpatient Established Mo d MDM 30-39 Min Completed 02/28/2021 37192 Spirometry Completed Medical Devices Description No Information Available Encounters Type Date Location Provider Dx Diagnosis Office Visit 02/28/2021 9:30a [facility] Pulmonary/Thoracic Tawana Green helsarpan, N.P. 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 02/28/2021 J43.9 Emphysema, unspecified Asha Green, N.P. Plan of Treatment Future Appointment(s):* 08/31/2021 1:30 pm - Ham Schmidt MD at [facility] Pulmonary/Thoracic 04/03/2021 - Ham Schmidt MD* J44.9 Chronic obstructive pulmonary disease, unspecified * J43.9 Emphysema, unspecified * Z87.891 Personal history of nicotine dependence * Z79.02 skilled nursing (current) use of antithrombotics/antiplatelets * * New Medication:* Trelegy Ellipta 200-62.5-25 mcg/Inh * New Labs:* FVL/[place], Ordered: 04/03/21 * Follow up:* Follow up in four months with spirometry, oximetry and flow volume loop/ LDCT Functional Status Description No Information Available Mental Status Description No Information Available Referrals Description No Information Available
--- OUTSIDE RECORDS SUMMARY | 2021-06-17 08:18 | CCD | Continuity of Care Document ---
Author Author Shiva GARNETT [place] Organization Unknown Address [address] [place] [address] [place] [address] Phone [phone] Care Team Providers Care Barbering Teacher Name Role Phone Jevon Richardson MD [facility] [phone] Problems Description No Information Available Social History [...] Code Status Date Vaccine Reaction Lot # [id number] Given 02/09/2019 Tdap/Tetanus, Di phth Toxoids/Acellular Pertussis Vac 7Yr Or > Pt tolerated well, no raction. [id number] Vital Signs Date Vital Result Comment 01/25/2020 [...] Available Encounters Description No Information Available Assessments Description No Information Available Plan of Treatment No Information Available Functional Status Description No Information Available Mental Status Description No Information Available Referrals Description No Information Available
--- OUTSIDE RECORDS SUMMARY | 2021-06-17 08:18 | CCD ---
Author Author [facility] Organization [facility] Address Unknown Phone Unavailable Care Team Providers Care Etched Circuit Processor Name Role Phone Hayboom Jevon Unavailable PROBLEMS Type Condition ICD9-CM Code PHG81-RR Code Onset Dates Condition S tatus W/U Status Risk SNOMED Code Notes Problem Essential hypertension I10 Active confirmed 80381895 Problem Encounter for screening for cardiovascular disorders Z13.6 Active confirmed 591440309 Problem Encounter for lipid screening for cardiovascular disease Z13.220 Active confirmed 338777266 Problem Erectile dysfunction N52.9 Active confirmed 784913073 Problem Xanthelasma of left eye, 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 Active confirmed 1934544 Problem COPD (chronic obstructive pulmonary disease) J44.9 Active confirmed 09484562 Problem Xanthelasma of right eye, unspecified eyelid H02.6 3 Active confirmed 5445185 Problem GERD (gastroesophageal reflux disease) K21.9 A ctive confirmed 126058415 Problem Screening for prostate cancer Z12.5 Active confirm ed 276889057 Problem Episodic atrial fibrillation I48.0 Active confirme d 056877840 Problem Prophylactic vaccination against strepto coccus pneumoniae and influenza Z23 Active confirmed 025542255 Problem Other and unspecified hyperlipidemia E78.5 Act vent[place] confirmed 57471242 ALLERGIES Allergen (clinical drug ingredient) Drug/Non Drug Allergy do cumented on EMR Reaction Allergy Type Onset Date Status Penicillin (For Allergies Use Only) pt unsure Drug Allerg y Active ENCOUNTERS from 1955 to 2021-03-30 Encounter Location Date Provider Diagnosis [facility] [address] [place] [address] Mar, Jevon Richardson IMMUNIZATIONS Vaccine Route Administration Date Status Pneumococcal Adult 0.5mL Pneumovax 23 IM Intramuscular November 22 016 Administered Influenza 6mo & up Fluzone Unknown Mar 22, 2017 Admin istered Influenza 6mo & up Fluzone IM Intramuscular May 20, 2015 Admi nistered SOCIAL HISTORY Tobacco Use: Social History Observation Description Date Details (start date - stop date) Former Smoker Sex Assigned At : Social History Observation Description Sex Assigned At Unknown Education: Question Answer Notes Level of Education: High School Audit Question Answer Notes Total Score: 8 Interpretation: Simple Advice Language: Question Answer Notes Languages spoken: Rwandan Judaism: Question Answer Notes Judaism 21 [employer] Sexual Hx: Question Answer Notes Had sex in the last 12 months (vaginal, oral, or anal)? Yes Have you ever had an STD? No Prevention Strategies discussed: Other with Women only Use protection? No Drug and Alcohol Question Answer Notes Total Score: 0 Interpretation: No problems reported Tobacco Use: Question Answer Notes Are you a: former smoker How long has it been since you last smoked? > 10 years REASON FOR REFERRAL No Information VITAL SIGNS No information MEDICATIONS Medication SIG (Take, Route, Frequency, Duration) Notes Start Da te End Date Status Shingrix 50 MCG as directed Intramuscular as directed for 1 dose(s) Not-Taking Ventolin HFA 90 MCG/ACT 2 puffs as needed Inhalation qid prn for 30 d ays Active Azithromycin 250 MG 2 tablets on the first day, then 1 tablet daily for 4 days Orally Once a day for 5 day(s) Dec, N ot-Taking Omeprazole 20 MG 1 capsule Orally Once a day for 90 Active Viagra 100 MG 1/2 or 1 tablet as needed Orally daily as needed for 30 Days Apr, Active Bisoprolol Fumarate 5 MG 1 tablet Orally Once a day Active Cefdinir 300 MG TAKE ONE CAPSULE BY MOUTH EV GIGI 12 HOURS FOR 10 DAYS Oral for 10 Not-Taking Flecainide Acetate 50 MG 1 tablet Orally every 12 hrs for 90 day(s) Not-Taking Eliquis 5 MG as directed Orally bid Active Claritin 10 MG 1 tablet Orally Once a day for 90 day(s) Dec, Not-Taking Advair Diskus 250-50 MCG/DOSE 1 puff Inhalation Twice a day Active Fluticasone Propionate 50 MCG/ACT 1 spray in each nost ril Nasally Once a day for 30 day(s) Dec, Not-Taking Aspirin 325 MG 1 tablet Orally Once a day Not-Taking PROCEDURES No Information RESULTS No Results REASON FOR VISIT ventolin MEDICAL (GENERAL) HISTORY Type Description Date Medical History parox atrial fib, followed [facility]/Vik; [id number] =0, on ASA and flecanide. Holter 08/05--no at fib; admitted SVT 12/08; had AV ablation [facility] 12/08 Medical History echo 12/02, LA 39 mm, EF 65%; echo 12/08 E F 50%, LAE Medical History HTN Medical History COPD--quit smoking 2006, fol aletha GUO/Brayan; spirometry 10/04: FEV1 1.7, FVC 3.3, ratio 51%; 09/08 48%, FEV1 1.7 Medical History GERD Medical History ED Medical History CT chest (FRANCISCO J HARO; low dose CT)--emphysema, fibrosis, new nodules vs scarring 08/11 Surgical History back surgery x 2 Surgical History colonoscopy (adenomatous geri yp in 2007; 2012 done at [facility], no records here) - [facility] called 12/04/17 normal colonoscopy in 2012 2007, 05/2013 Surgical History cardiac ablasion [facility] 11/09 Hospitalization History surgery Goals Section No Information Health Concerns No Information MEDICAL EQUIPMENT No Information MENTAL STATUS No Information FUNCTIONAL STATUS No Information ASSESSMENTS No Information PLAN OF TREATMENT Medication Medication Name Sig Start Date Stop Date Ventolin HFA 90 MCG/ACT 2 puffs as needed Inhalation qid prn for 30 days Next Appt Details Provider Name:Jevon Richardson, 2021-07 09:45:00 AM, [address] , [place], [address], Insurance Providers Payer Name Payer Address Payer Phone Insured Name Patient Relati onship to Insured Coverage Start Date Coverage End Date [facility] [address] [facility] [id number] SCOTT CASTELLANOS self
--- OUTSIDE RECORDS SUMMARY | 2021-06-17 08:18 | CCD | Continuity of Care Document ---
Author Author Shiva SCHMIDT MD Organization Unknown Address [address] [place] [address] Phone [phone] Care Team Providers Care Pigment Weigher Name Role Phone Jevon Richardson M.D. AUTM [phone] Amauri Chery M.D. AUTM [phone] Problems Active Problems Provider Date Allergic rhinitis [...] CPT Code Status Date Vaccine Lot # 18280 Given 04/24/2018 Influenza Virus Vaccine, Quadrivalent, Slit Virus, Im Use [id number] 28327 Given 05/30/2016 Influenza Virus Split 3 Yrs And Above For Intramuscular Use 13345 Given 04/11/2016 Influenza Virus Split 3 Yrs And Above For Intramuscular Use 25321 Given 05/06/2014 Influenza Virus Split 3 Yrs [...] lb BMI (Body Mass Index) 33.1 kg/m2 [place] Body Weight 172 lb Weight 109.318 kg BSA (Body Surface Area) 2.29 m2 02/28/2021 9:30am BP Systolic 126 mmHg BP Diastolic 72 mmHg Heart Rate 83 /min O2 % BldC Oximetry 96 % Height 71.5 inches 5'11.50" Weight 233.50 lb BMI (Body Mass Index) 32.1 kg/m2 [place] Body Weight 172 lb Weight 105.916 kg BSA (Body Surface Area) 2.26 m2 Results Test Acquired Date Facility Test Result H/L Range Note FVL/[place] 02/28/2021 [facility] SEE IMAGE FVC-Pred 4.93 L FVC-Pre 2.26 L FVC-%Pred-Pre 45 L FVC-LLN 3.95 L Fev1-Pred 3.70 L Fev1-Pre 1.33 L Fev1-%Pred-Pre 35 L Fev1-LLN 2.88 L Fev6-Pred 4.69 L Fev6-Pre 2.26 L Fev6-%Pred-Pre 48 L Fev6-LLN 3.75 L Fzb6hak-Zysu 75 % Kvu9rqy-Pkj 59 % Nle7mdo-%Pred-Pre 78 % Irw5qsg-HGR 65 % Rew9pzn-Xugd 95 % Ccj4ayy-Kme 100 % Ntd2vob-%Pred-Pre 104 % FEFMax-Pred 9.33 L/E/sec FEFMax-Pre 4.55 L/E/sec FEFMax-%Pred-Pre 48 L/E/sec FEFMax-LLN 6.91 L/E/sec Brr0296-Zqgy 2.97 L/E/sec Evi6553-Hrg 0.75 L/E/sec Lnj5005-%Pred-Pre 25 L/E/sec Htu6319-QVL 1.29 L/E/sec ExpTime-Pre 3.81 sec Tko6qox5-Egre 79 % Fxm8gav5-Tfy 59 % Ayk0bgz3-%Pred-Pre 74 % Nou8kwn2-LUY 70 % Procedures Date Code Description Status 02/28/2021 37401 Office/Outpatient Established Mo d MDM 30-39 Min Completed 02/28/2021 96987 Spirometry Completed Medical Devices Description No Information Available Encounters Type Date Location Provider Dx Diagnosis Office Visit 02/28/2021 9:30a [facility] Pulmonary/Thoracic Tawana Green helsarpan, N.P. 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 02/28/2021 J43.9 Emphysema, unspecified Asha Green, N.P. Plan of Treatment Future Appointment(s):* 08/31/2021 1:30 pm - Ham Schmidt MD at [facility] Pulmonary/Thoracic 04/03/2021 - Ham Schmidt MD* J44.9 Chronic obstructive pulmonary disease, unspecified * J43.9 Emphysema, unspecified * Z87.891 Personal history of nicotine dependence * Z79.02 alf (current) use of antithrombotics/antiplatelets * * New Medication:* Trelegy Ellipta 200-62.5-25 mcg/Inh * New Labs:* FVL/[place], Ordered: 04/03/21 * Follow up:* Follow up in four months with spirometry, oximetry and flow volume loop/ LDCT Functional Status Description No Information Available Mental Status Description No Information Available Referrals Description No Information Available
--- OUTSIDE RECORDS SUMMARY | 2021-06-17 08:18 | CCD | Continuity of Care Document ---
Author Author Shiva SCHMIDT MD Organization Unknown Address [address] [place] [address] Phone [phone] Care Team Providers Care Cheese Production Supervisor Name Role Phone Jevon Richardson M.D. AUTM [phone] Amauri Chery M.D. AUTM [phone] Problems Active Problems Provider Date Allergic rhinitis [...] CPT Code Status Date Vaccine Lot # 03457 Given 04/24/2018 Influenza Virus Vaccine, Quadrivalent, Slit Virus, Im Use [id number] 38338 Given 05/30/2016 Influenza Virus Split 3 Yrs And Above For Intramuscular Use 57225 Given 04/11/2016 Influenza Virus Split 3 Yrs And Above For Intramuscular Use 33823 Given 05/06/2014 Influenza Virus Split 3 Yrs [...] lb BMI (Body Mass Index) 33.1 kg/m2 [place] Body Weight 172 lb Weight 109.318 kg BSA (Body Surface Area) 2.29 m2 02/28/2021 9:30am BP Systolic 126 mmHg BP Diastolic 72 mmHg Heart Rate 83 /min O2 % BldC Oximetry 96 % Height 71.5 inches 5'11.50" Weight 233.50 lb BMI (Body Mass Index) 32.1 kg/m2 [place] Body Weight 172 lb Weight 105.916 kg BSA (Body Surface Area) 2.26 m2 Results Test Acquired Date Facility Test Result H/L Range Note FVL/[place] 02/28/2021 [facility] SEE IMAGE FVC-Pred 4.93 L FVC-Pre 2.26 L FVC-%Pred-Pre 45 L FVC-LLN 3.95 L Fev1-Pred 3.70 L Fev1-Pre 1.33 L Fev1-%Pred-Pre 35 L Fev1-LLN 2.88 L Fev6-Pred 4.69 L Fev6-Pre 2.26 L Fev6-%Pred-Pre 48 L Fev6-LLN 3.75 L Ehv5nqy-Rwqe 75 % Buv4lja-Nvo 59 % Hgi4nda-%Pred-Pre 78 % Lbk0bdy-TXH 65 % Kqr3ksv-Dzct 95 % Uzt8wgo-Vqm 100 % Nxz6tbq-%Pred-Pre 104 % FEFMax-Pred 9.33 L/E/sec FEFMax-Pre 4.55 L/E/sec FEFMax-%Pred-Pre 48 L/E/sec FEFMax-LLN 6.91 L/E/sec Nor2828-Izng 2.97 L/E/sec Kxe2621-The 0.75 L/E/sec Vge6207-%Pred-Pre 25 L/E/sec Tgn7979-JSD 1.29 L/E/sec ExpTime-Pre 3.81 sec Jyf1ffu4-Fvym 79 % Cva4aau8-Mxx 59 % Ehy7grr5-%Pred-Pre 74 % Tee1rfh3-ENI 70 % Procedures Date Code Description Status 02/28/2021 90089 Office/Outpatient Established Mo d MDM 30-39 Min Completed 02/28/2021 92274 Spirometry Completed Medical Devices Description No Information Available Encounters Type Date Location Provider Dx Diagnosis Office Visit 02/28/2021 9:30a [facility] Pulmonary/Thoracic Tawana Green helsarpan, N.P. 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 02/28/2021 J43.9 Emphysema, unspecified Asha Green, N.P. Plan of Treatment Future Appointment(s):* 08/31/2021 1:30 pm - Ham Schmidt MD at [facility] Pulmonary/Thoracic 04/03/2021 - Ham Schmidt MD* J44.9 Chronic obstructive pulmonary disease, unspecified * J43.9 Emphysema, unspecified * Z87.891 Personal history of nicotine dependence * Z79.02 shelter (current) use of antithrombotics/antiplatelets * * New Medication:* Trelegy Ellipta 200-62.5-25 mcg/Inh * New Labs:* FVL/[place], Ordered: 04/03/21 * Follow up:* Follow up in four months with spirometry, oximetry and flow volume loop/ LDCT Functional Status Description No Information Available Mental Status Description No Information Available Referrals Description No Information Available
--- OUTSIDE RECORDS SUMMARY | 2021-06-17 08:18 | CCD | Continuity of Care Document ---
Author Author Shiva SCHMIDT MD Organization Unknown Address [address] [place] [address] Phone [phone] Care Team Providers Care Mold Clamper Name Role Phone Jevon Richardson M.D. AUTM [phone] Amauri Chery M.D. AUTM [phone] Problems Active Problems Provider Date Allergic rhinitis [...] CPT Code Status Date Vaccine Lot # [id number] Given 04/24/2018 Influenza Virus Vaccine, Quadrivalent, Slit Virus, Im Use [id number] 17062 Given 05/30/2016 Influenza Virus Split 3 Yrs And Above For Intramuscular Use 23474 Given 04/11/2016 Influenza Virus Split 3 Yrs And Above For Intramuscular Use 33524 Given 05/06/2014 Influenza Virus Split 3 Yrs [...] lb BMI (Body Mass Index) 33.1 kg/m2 [place] Body Weight 172 lb Weight 109.318 kg BSA (Body Surface Area) 2.29 m2 02/28/2021 9:30am BP Systolic 126 mmHg BP Diastolic 72 mmHg Heart Rate 83 /min O2 % BldC Oximetry 96 % Height 71.5 inches 5'11.50" Weight 233.50 lb BMI (Body Mass Index) 32.1 kg/m2 [place] Body Weight 172 lb Weight 105.916 kg BSA (Body Surface Area) 2.26 m2 Results Test Acquired Date Facility Test Result H/L Range Note [facility] 02/28/2021 [facility] PDFReport SEE IMAGE FVC-Pred 4.93 L FVC-Pre 2.26 L FVC-%Pred-Pre 45 L FVC-LLN 3.95 L Fev1-Pred 3.70 L Fev1-Pre 1.33 L Fev1-%Pred-Pre 35 L Fev1-LLN 2.88 L Fev6-Pred 4.69 L Fev6-Pre 2.26 L Fev6-%Pred-Pre 48 L Fev6-LLN 3.75 L Fzr2kdc-Vrpa 75 % Ydy2rtx-Eex 59 % Box4ksp-%Pred-Pre 78 % Tod2sbo-LQX 65 % Npw0rzc-Ahts 95 % Fjg4hmr-Jyw 100 % Rwi0lbz-%Pred-Pre 104 % FEFMax-Pred 9.33 L/E/sec FEFMax-Pre 4.55 L/E/sec FEFMax-%Pred-Pre 48 L/E/sec FEFMax-LLN 6.91 L/E/sec Etx4942-Kqbl 2.97 L/E/sec Buo7902-Rlk 0.75 L/E/sec Ovs2728-%Pred-Pre 25 L/E/sec Zwb0360-DTT 1.29 L/E/sec ExpTime-Pre 3.81 sec Ahx9kjw3-Wnog 79 % Lbp3nuw0-Esq 59 % Tsu2oct5-%Pred-Pre 74 % Xma0bpa6-TZQ 70 % Procedures Date Code Description Status 02/28/2021 62002 Office/Outpatient Established Mo d MDM 30-39 Min Completed 02/28/2021 76016 Spirometry Completed Medical Devices Description No Information Available Encounters Type Date Location Provider Dx Diagnosis Office Visit 02/28/2021 9:30a [facility]Th[facility]acic Tawana Green helsarpan, N.P. 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 02/28/2021 J43.9 Emphysema, unspecified Asha Green, N.P. Plan of Treatment Future Appointment(s):* 08/31/2021 1:30 pm - Ham Schmidt MD at [facility] Pulmonary/Thoracic 04/03/2021 - Ham Schmidt MD* J44.9 Chronic obstructive pulmonary disease, unspecified * J43.9 Emphysema, unspecified * Z87.891 Personal history of nicotine dependence * Z79.02 alf (current) use of antithrombotics/antiplatelets * * New Medication:* Trelegy Ellipta 200-62.5-25 mcg/Inh * New Labs:* [facility]/[place], Ordered: 04/03/21 * Follow up:* Follow up in four months with spirometry, oximetry and flow volume loop/ LDCT Functional Status Description No Information Available Mental Status Description No Information Available Referrals Description No Information Available
--- OUTSIDE RECORDS SUMMARY | 2021-06-17 08:19 | CCD ---
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 Name Role Phone Dorian, L Jolanta PA Unavailable Unavailable Dorian, L Jolanta PA Unavailable Unavailable Dorian, L Jolanta PA Unavailable Unavailable Dorian, L Jolanta PA Unavailable Unavailable Dorian, L Jolanta PA Unavailable Unavailable Dorian, L Jolanta PA Unavailable Unavailable Dorian, L Jolanta PA Unavailable Unavailable Dorian, L Jolanta PA Unavailable Unavailable Dorian, L Jolanta PA Unavailable Unavailable Dorian, L Jolanta PA Unavailable Unavailable Dorian, L Jolanta PA Unavailable Unavailable Dorian, L Jolanta PA Unavailable Unavailable Dorian, L Jolanta PA Unavailable Unavailable Dorian, L Jolanta PA Unavailable Unavailable Dorian, L Jolanta PA Unavailable Unavailable Dorian, L Jolanta PA Unavailable Unavailable Dorian, L Jolanta PA Unavailable Unavailable Dorian, L Jolanta PA Unavailable Unavailable Dorian, L Jolanta PA Unavailable Unavailable Dorian, L Jolanta PA Unavailable Unavailable Dorian, L Jolanta PA Unavailable Unavailable Dorian, L Jolanta PA Unavailable Unavailable Dorian, L Jolanta PA Unavailable Unavailable KATY, L AMY PA Unavailable Unavailable KATY, L AMY PA Unavailable Unavailable KATY, L AMY PA Unavailable Unavailable KATY, L AMY PA Unavailable Unavailable KATY, L AMY PA Unavailable Unavailable KATY, L AMY PA Unavailable Unavailable KATY, L AMY PA Unavailable Unavailable KATY, L AMY PA Unavailable Unavailable KATY, L AMY PA Unavailable Unavailable KATY, L AMY PA Unavailable Unavailable KATY, L AMY PA Unavailable Unavailable KATY, L AMY PA Unavailable Unavailable KATY, L AMY PA Unavailable Unavailable KATY, L AMY PA Unavailable Unavailable KATY, L AMY PA Unavailable Unavailable KATY, L AMY PA Unavailable Unavailable EDISON, LIANA BOBBY CURING BIN OPERATOR-C Unavailable Unavailable EDISON, LIANA BOBBY CURING BIN OPERATOR-C Unavailable Unavailable EDISON, LIANA BOBBY CURING BIN OPERATOR-C Unavailable Unavailable EDISON, LIANA BOBBY CURING BIN OPERATOR-C Unavailable Unavailable EDISON, LIANA BOBBY CURING BIN OPERATOR-C Unavailable Unavailable EDISON, LIANA BOBBY CURING BIN OPERATOR-C Unavailable Unavailable EDISON, LIANA BOBBY CURING BIN OPERATOR-C Unavailable Unavailable EDISON, LIANA BOBBY CURING BIN OPERATOR-C Unavailable Unavailable EDISON, LIANA BOBBY CURING BIN OPERATOR-C Unavailable Unavailable EDISON, LIANA BOBBY CURING BIN OPERATOR-C Unavailable Unavailable EDISON, LIANA BOBBY CURING BIN OPERATOR-C Unavailable Unavailable EDISON, LIANA BOBBY CURING BIN OPERATOR-C Unavailable Unavailable EDISON, LIANA BOBBY CURING BIN OPERATOR-C Unavailable Unavailable EDISON, LIANA BOBBY CURING BIN OPERATOR-C Unavailable Unavailable EDISON, LIANA BOBBY CURING BIN OPERATOR-C Unavailable Unavailable EDISON, LIANA BOBBY CURING BIN OPERATOR-C Unavailable Unavailable EDISON, LIANA BOBBY CURING BIN OPERATOR-C Unavailable Unavailable ZABOROWSKI, J BARBIE CHANGE CONTROL COORDINATOR Unavailable Unavailable ZABOROWSKI, J BARBIE CHANGE CONTROL COORDINATOR Unavailable Unavailable ZABOROWSKI, J BARBIE CHANGE CONTROL COORDINATOR Unavailable Unavailable ZABOROWSKI, J BARBIE CHANGE CONTROL COORDINATOR Unavailable Unavailable ZABOROWSKI, J BARBIE CHANGE CONTROL COORDINATOR Unavailable Unavailable ZABOROWSKI, J BARBIE CHANGE CONTROL COORDINATOR Unavailable Unavailable ZABOROWSKI, J BARBIE CHANGE CONTROL COORDINATOR Unavailable Unavailable ZABOROWSKI, J BARBIE CHANGE CONTROL COORDINATOR Unavailable Unavailable ZABOROWSKI, J BARBIE CHANGE CONTROL COORDINATOR Unavailable Unavailable ZABOROWSKI, J BARBIE CHANGE CONTROL COORDINATOR Unavailable Unavailable ZABOROWSKI, J BARBIE CHANGE CONTROL COORDINATOR Unavailable Unavailable ZABOROWSKI, J BARBIE CHANGE CONTROL COORDINATOR Unavailable Unavailable ZABOROWSKI, J BARBIE CHANGE CONTROL COORDINATOR Unavailable Unavailable ZABOROWSKI, J BARBIE CHANGE CONTROL COORDINATOR Unavailable Unavailable ZABOROWSKI, J BARBIE CHANGE CONTROL COORDINATOR Unavailable Unavailable ZABOROWSKI, J BARBIE CHANGE CONTROL COORDINATOR Unavailable Unavailable ZABOROWSKI, J BARBIE CHANGE CONTROL COORDINATOR Unavailable Unavailable ZABOROWSKI, J BARBIE CHANGE CONTROL COORDINATOR Unavailable Unavailable ZABOROWSKI, J BARBIE CHANGE CONTROL COORDINATOR Unavailable Unavailable ZABOROWSKI, J BARBIE CHANGE CONTROL COORDINATOR Unavailable Unavailable ZABOROWSKI, J BARBIE CHANGE CONTROL COORDINATOR Unavailable Unavailable ZABOROWSKI, J BARBIE CHANGE CONTROL COORDINATOR Unavailable Unavailable ZABOROWSKI, J BARBIE CHANGE CONTROL COORDINATOR Unavailable Unavailable ZABOROWSKI, J BARBIE CHANGE CONTROL COORDINATOR Unavailable Unavailable ZABOROWSKI, J BARBIE CHANGE CONTROL COORDINATOR Unavailable Unavailable ZABOROWSKI, J BARBIE CHANGE CONTROL COORDINATOR Unavailable Unavailable ZABOROWSKI, J BARBIE CHANGE CONTROL COORDINATOR Unavailable Unavailable ZABOROWSKI, J BARBIE CHANGE CONTROL COORDINATOR Unavailable Unavailable ZABOROWSKI, J BARBIE CHANGE CONTROL COORDINATOR Unavailable Unavailable ZABOROWSKI, J BARBIE CHANGE CONTROL COORDINATOR Unavailable Unavailable ZABOROWSKI, J BARBIE CHANGE CONTROL COORDINATOR Unavailable Unavailable ZABOROWSKI, J BARBIE CHANGE CONTROL COORDINATOR Unavailable Unavailable ZABOROWSKI, J BARBIE CHANGE CONTROL COORDINATOR Unavailable Unavailable ZABOROWSKI, J BARBIE CHANGE CONTROL COORDINATOR Unavailable Unavailable ZABOROWSKI, J BARBIE CHANGE CONTROL COORDINATOR Unavailable Unavailable ZABOROWSKI, J BARBIE CHANGE CONTROL COORDINATOR Unavailable Unavailable ZABOROWSKI, J BARBIE CHANGE CONTROL COORDINATOR Unavailable Unavailable ZABOROWSKI, J BARBIE CHANGE CONTROL COORDINATOR Unavailable Unavailable ZABOROWSKI, J BARBIE CHANGE CONTROL COORDINATOR Unavailable Unavailable ZABOROWSKI, J BARBIE CHANGE CONTROL COORDINATOR Unavailable Unavailable ZABOROWSKI, J BARBIE CHANGE CONTROL COORDINATOR Unavailable Unavailable ZABOROWSKI, J BARBIE CHANGE CONTROL COORDINATOR Unavailable Unavailable ZABOROWSKI, J BARBIE CHANGE CONTROL COORDINATOR Unavailable Unavailable ZABOROWSKI, J BARBIE CHANGE CONTROL COORDINATOR Unavailable Unavailable ZABOROWSKI, J BARBIE CHANGE CONTROL COORDINATOR Unavailable Unavailable ZABOROWSKI, J BARBIE CHANGE CONTROL COORDINATOR Unavailable Unavailable ZABOROWSKI, J BARBIE CHANGE CONTROL COORDINATOR Unavailable Unavailable ZABOROWSKI, J BARBIE CHANGE CONTROL COORDINATOR Unavailable Unavailable ZABOROWSKI, J BARBIE CHANGE CONTROL COORDINATOR Unavailable Unavailable Moses Noyola MD Unavailable Unavailable Moses Noyola MD Unavailable Unavailable Moses Noyola MD Unavailable Unavailable Moses Noyola MD Unavailable Unavailable Moses Noyola MD Unavailable Unavailable Moses Noyola MD Unavailable Unavailable Moses Noyola MD Unavailable Unavailable Moses Noyola MD Unavailable Unavailable Moses Noyola MD Unavailable Unavailable Moses Noyola MD Unavailable Unavailable Moses Noyola MD Unavailable Unavailable Moses Noyola MD Unavailable Unavailable Moses Noyola MD Unavailable Unavailable Moses Noyola MD Unavailable Unavailable Al Mudamgha, A Ali MD Unavailable Unavailable Al Mudamgha, A Ali MD Unavailable Unavailable Al Mudamgha, A Ali MD Unavailable Unavailable Al Mudamgha, A Ali MD Unavailable Unavailable Al Mudamgha, A Ali MD Unavailable Unavailable Al Mudamgha, A Ali MD Unavailable Unavailable Al Mudamgha, A Ali MD Unavailable Unavailable Al Mudamgha, A Ali MD Unavailable Unavailable Al Mudamgha, A Ali MD Unavailable Unavailable Al Mudamgha, A Ali MD Unavailable Unavailable Al Mudamgha, A Ali MD Unavailable Unavailable Al Mudamgha, A Ali MD Unavailable Unavailable Al Mudamgha, A Ali MD Unavailable Unavailable Al Mudamgha, A Ali MD Unavailable Unavailable Al Mudamgha, A Ali MD Unavailable Unavailable Al Mudamgha, A Ali MD Unavailable Unavailable Al Mudamgha, A Ali MD Unavailable Unavailable Al Mudamgha, A Ali MD Unavailable Unavailable Al Mudamgha, A Ali MD Unavailable Unavailable Al Mudamgha, A Ali MD Unavailable Unavailable Al Mudamgha, A Ali MD Unavailable Unavailable Al Mudamgha, A Ali MD Unavailable Unavailable Al Mudamgha, A Ali MD Unavailable Unavailable Al Mudamgha, A Ali MD Unavailable Unavailable Al Mudamgha, A Ali MD Unavailable Unavailable Al Mudamgha, A Ali MD Unavailable Unavailable Al Mudamgha, A Ali MD Unavailable Unavailable Al Mudamgha, A Ali MD Unavailable Unavailable Al Mudamgha, A Ali MD Unavailable Unavailable Al Mudamgha, A Ali MD Unavailable Unavailable Al Mudamgha, A Ali MD Unavailable Unavailable Al Mudamgha, A Ali MD Unavailable Unavailable Al Mudamgha, A Ali MD Unavailable Unavailable Al Mudamgha, A Ali MD Unavailable Unavailable Al Mudamgha, A Ali MD Unavailable Unavailable Al Mudamgha, A Ali MD Unavailable Unavailable Al Mudamgha, A Ali MD Unavailable Unavailable Al Mudamgha, A Ali MD Unavailable Unavailable Al Mudamgha, A Ali MD Unavailable Unavailable Al Mudamgha, A Ali MD Unavailable Unavailable Al Mudamgha, A Ali MD Unavailable Unavailable Al Mudamgha, A Ali MD Unavailable Unavailable Al Mudamgha, A Ali MD Unavailable Unavailable Al Mudamgha, A Ali MD Unavailable Unavailable Al Mudamgha, A Ali MD Unavailable Unavailable Al Mudamgha, A Ali MD Unavailable Unavailable Al Mudamgha, A Ali MD Unavailable Unavailable Al Mudamgha, Moses Rodriguez MD Unavailable Unavailable Al Mudamgha, Moses Rodriguez MD Unavailable Unavailable Al Mudamgha, Moses Rodriguez MD Unavailable Unavailable Al Mudamgha, Moses Rodriguez MD Unavailable Unavailable Al Mudamgha, Moses Rodriguez MD Unavailable Unavailable Al Mudamgha, Moses Rodriguez MD Unavailable Unavailable Al Mudamgha, Moses Rodriguez MD Unavailable Unavailable Al Mudamgha, Moses Rodriguez MD Unavailable Unavailable Al Mudamgha, Moses Rodriguez MD Unavailable Unavailable Al Mudamgha, oMses Rodriguez MD Unavailable Unavailable Al Mudamgha, Moses Rodriguez MD Unavailable Unavailable Al Mudamgha, Moses Rodriguez MD Unavailable Unavailable Al Mudamgha, Moses Rodriguez MD Unavailable Unavailable Al Mudamgha, Moses Rodriguez MD Unavailable Unavailable Al Mudamgha, Moses Rodriguez MD Unavailable Unavailable Al Mudamgha, Moses Rodriguez MD Unavailable Unavailable Al Mudamgha, Moses Rodriguez MD Unavailable Unavailable Al Mudamgha, Moses Rodriguez MD Unavailable Unavailable Al Mudamgha, Moses Rodriguez MD Unavailable Unavailable Al Mudamgha, Moses Rodriguez MD Unavailable Unavailable Al Mudamgha, Moses Rodriguez MD Unavailable Unavailable Al Mudamgha, Moses Rodriguez MD Unavailable Unavailable Al Mudamgha, Moses Rodriguez MD Unavailable Unavailable Al Mudamgha, Moses Rodriguez MD Unavailable Unavailable Al Mudamgha, Moses Rodriguez MD Unavailable Unavailable Al Mudamgha, Moses Rodriguez MD Unavailable Unavailable Al Mudamgha, Moses Rodriguez MD Unavailable Unavailable Al Mudamgha, Moses Rodriguez MD Unavailable Unavailable Al Mudamgha, Moses Rodriguez MD Unavailable Unavailable KOSTIV, JACQUIE Unavailable Unavailable Bonilla Schmidt MD Unavailable Unavailable Bonilla Schmidt MD Unavailable Unavailable Bonilla Schmidt MD Unavailable Unavailable Bonilla Schmidt MD Unavailable Unavailable Bonilla Schmidt MD Unavailable Unavailable Bonilla Schmidt MD Unavailable Unavailable Bonilla Schmidt MD Unavailable Unavailable Bonilla Schmidt MD Unavailable Unavailable Bnoilla Schmidt MD Unavailable Unavailable Bonilla Schmidt MD Unavailable Unavailable Bonilla Schmidt MD Unavailable Unavailable Bonilla Schmidt MD Unavailable Unavailable Bonilla Schmidt MD Unavailable Unavailable Bonilla Schmidt MD Unavailable Unavailable Bonilla Schmidt MD Unavailable Unavailable Bonilla Schmidt MD Unavailable Unavailable Bonilla Schmidt MD Unavailable Unavailable Bonilla Schmidt MD Unavailable Unavailable Bonilla Schmidt MD Unavailable Unavailable Bonilla Schmidt MD Unavailable Unavailable Bonilla Schmidt MD Unavailable Unavailable Bonilla Schmidt MD Unavailable Unavailable Bonilla Schmidt MD Unavailable Unavailable Bonilla Schmidt MD Unavailable Unavailable Schmidt, Bonilla Cheek MD Unavailable Unavailable Schmidt, Bonilla Cheek MD Unavailable Unavailable Schmidt, Bonilla Cheek MD Unavailable Unavailable Schmidt, Bonilla Cheek MD Unavailable Unavailable Schmidt, Bonilla Cheek MD Unavailable Unavailable Schmidt, Bonilla Cheek MD Unavailable Unavailable Schmidt, Bonlila Cheek MD Unavailable Unavailable Schmidt, Bonilla Cheek MD Unavailable Unavailable Schmidt, Bonilla Cheek MD Unavailable Unavailable Schmidt, Bonilla Cheek MD Unavailable Unavailable Schmidt, Bonilla Cheek MD Unavailable Unavailable Schmidt, Bonilla Cheek MD Unavailable Unavailable Schmidt, Bonilla Cheek MD Unavailable Unavailable Schmidt, Bonilla Cheek MD Unavailable Unavailable Schmidt, Bonilla Cheek MD Unavailable Unavailable Schmidt, Bonilla Cheek MD Unavailable Unavailable Schmidt, Bonilla Cheek MD Unavailable Unavailable Schmidt, Bonilla Cheek MD Unavailable Unavailable Schmidt, Bonilla Cheke MD Unavailable Unavailable Schmidt, Bonilla Cheek MD Unavailable Unavailable Schmidt, Bonilla Cheek MD Unavailable Unavailable Schmidt, Bonilla Cheek MD Unavailable Unavailable Schmidt, Bonilla Cheek MD Unavailable Unavailable Schmidt, Bonilla Cheek MD Unavailable Unavailable Schmidt, Bonilla Cheek MD Unavailable Unavailable Schmidt, Bonilla Cheek MD Unavailable Unavailable Schmidt, Bonilla Cheek MD Unavailable Unavailable Schmidt, Bonilla Cheek MD Unavailable Unavailable Schmidt, Bonilla Cheek MD Unavailable Unavailable Schmidt, Bonilla Cheek MD Unavailable Unavailable Al Moses Knapp MD Unavailable Unavailable Al Moses Knapp MD Unavailable Unavailable Al Moses Knapp MD Unavailable Unavailable Al Moses Knapp MD Unavailable Unavailable Al Moses Knapp MD Unavailable Unavailable Al Moses Knapp MD Unavailable Unavailable Al Moses Knapp MD Unavailable Unavailable Al Moses Knapp MD Unavailable Unavailable Al Moses Knapp MD Unavailable Unavailable Al Moses Knapp MD Unavailable Unavailable Al Moses Knapp MD Unavailable Unavailable Al Moses Knapp MD Unavailable Unavailable Al Moses Knapp MD Unavailable Unavailable Al Moses Knapp MD Unavailable Unavailable Al Moses Knapp MD Unavailable Unavailable Al Moses Knapp MD Unavailable Unavailable Al Moses Knapp MD Unavailable Unavailable Al Moses Knapp MD Unavailable Unavailable Al Moses Knapp MD Unavailable Unavailable Al Moses Knapp MD Unavailable Unavailable Al Aria, Moses Rodriguez MD Unavailable Unavailable Al Aria, Moses Rodriguez MD Unavailable Unavailable Al Aria, Moses Rodriguez MD Unavailable Unavailable Al Aria, Moses Rodriguez MD Unavailable Unavailable Al Aria, Moses Rodriguez MD Unavailable Unavailable Al Mudamgha, A Ali MD Unavailable Unavailable Al Mudamgha, A Ali MD Unavailable Unavailable Al Mudamgha, A Ali MD Unavailable Unavailable Al Mudamgha, A Ali MD Unavailable Unavailable Al Mudamgha, A Ali MD Unavailable Unavailable Al Mudamgha, A Ali MD Unavailable Unavailable Al Mudamgha, A Ali MD Unavailable Unavailable Al Mudamgha, A Ali MD Unavailable Unavailable Al Mudamgha, A Ali MD Unavailable Unavailable Al Mudamgha, A Ali MD Unavailable Unavailable Al Mudamgha, A Ali MD Unavailable Unavailable Al Mudamgha, A Ali MD Unavailable Unavailable Al Mudamgha, A Ali MD Unavailable Unavailable Al Mudamgha, A Ali MD Unavailable Unavailable Al Mudamgha, A Ali MD Unavailable Unavailable Al Mudamgha, A Ali MD Unavailable Unavailable Al Mudamgha, A Ali MD Unavailable Unavailable Al Mudamgha, A Ali MD Unavailable Unavailable Al Mudamgha, A Ali MD Unavailable Unavailable Al Mudamgha, A Ali MD Unavailable Unavailable Al Mudamgha, A Ali MD Unavailable Unavailable Al Mudamgha, A Ali MD Unavailable Unavailable Al Mudamgha, A Ali MD Unavailable Unavailable Al Mudamgha, A Ali MD Unavailable Unavailable Al Mudamgha, A Ali MD Unavailable Unavailable Al Mudamgha, A Ali MD Unavailable Unavailable Al Mudamgha, A Ali MD Unavailable Unavailable Al Mudamgha, A Ali MD Unavailable Unavailable Al Mudamgha, A Ali MD Unavailable Unavailable Al Mudamgha, A Ali MD Unavailable Unavailable Al Mudamgha, A Ali MD Unavailable Unavailable Al Mudamgha, A Ali MD Unavailable Unavailable Al Mudamgha, A Ali MD Unavailable Unavailable Al Mudamgha, A Ali MD Unavailable Unavailable Al Mudamgha, A Ali MD Unavailable Unavailable Al Mudamgha, A Ali MD Unavailable Unavailable Al Mudamgha, A Ali MD Unavailable Unavailable Al Mudamgha, A Ali MD Unavailable Unavailable Al Mudamgha, A Ali MD Unavailable Unavailable Al Mudamgha, A Ali MD Unavailable Unavailable Al Mudamgha, A Ali MD Unavailable Unavailable Al Mudamgha, A Ali MD Unavailable Unavailable Al Mudamgha, A Ali MD Unavailable Unavailable Al Mudamgha, A Ali MD Unavailable Unavailable Al Mudamgha, A Ali MD Unavailable Unavailable Al Mudamgha, A Ali MD Unavailable Unavailable Al Mudamgha, A Ali MD Unavailable Unavailable Al Mudamgha, A Ali MD Unavailable Unavailable Al Mudamgha, A Ali MD Unavailable Unavailable Al Mudamgha, A Ali MD Unavailable Unavailable Al Mudamgha, A Ali MD Unavailable Unavailable Al Mudamgha, A Ali MD Unavailable Unavailable Al Mudamgha, A Ali MD Unavailable Unavailable Al Mudamgha, A Ali MD Unavailable Unavailable Al Mudamgha, A Ali MD Unavailable Unavailable Al Mudamgha, A Ali MD Unavailable Unavailable Al Mudamgha, A Ali MD Unavailable Unavailable Al Mudamgha, A Ali MD Unavailable Unavailable Al Mudamgha, A Ali MD Unavailable Unavailable Al Mudamgha, A Ali MD Unavailable Unavailable Al Mudamgha, A Ali MD Unavailable Unavailable Al Mudamgha, A Ali MD Unavailable Unavailable Al Mudamgha, A Ali MD Unavailable Unavailable Al Mudamgha, A Ali MD Unavailable Unavailable Al Mudamgha, A Ali MD Unavailable Unavailable Re-disclosure Warning The records that you are about to access may contain information from federally-assisted alcohol or drug abuse programs. If such information is present, then the following federally mandated warning applies: This information has been disclosed to you from records protected by federal confidentiality rules (42 CFR part 2). The federal rules prohibit you from making any further disclosure of this information unless further disclosure is expressly permitted by the written consent of the person to whom it pertains or as otherwise permitted by 42 CFR part 2. A general authorization for the release of medical or other information is NOT sufficient for this purpose. The Federal rules restrict any use of the information to criminally investigate or prosecute any alcohol or drug abuse patient.The records that you are about to access may contain highly sensitive health information, the redisclosure of which is protected by Article 27-F of the [facility] Public Health law. If you continue you may have access to information: Regarding HIV / AIDS; Provided by facilities licensed or operated by the [facility] Office of Mental Health; or Provided by the [facility] Office for People With Developmental Disabilities. If such information is present, then the following [facility] mandated warning applies: This information has been disclosed to you from confidential records which are protected by state law. State law prohibits you from making any further disclosure of this information without the specific written consent of the person to whom it pertains, or as otherwise permitted by law. Any unauthorized further disclosure in violation of state law may result in a fine or detention sentence or both. A general authorization for the release of medical or other information is NOT sufficient authorization for further disc losure. Family History Family Member Name Family Member Gender Family Member Status Date o f Status Description Data Source(s) Unknown Unknown Problem [facility] ([facility]) Unknown Unknown Problem [facility] ([facility] Unknown Female Problem [facility] ([facility] Encounters Encounter Providers Location Date Indications Data Source(s ) Outpatient Attender: Ham Cm/Aris/Johnson/R eindl 04/03/2021 03:00:00 PM EDT [facility] ([facility] [place] [address] [facility] [address] 03/29/2021 12:00:00 AM EDT eCW1 ([facility]) Outpatient Attender: Michael Noyola MD BF-BF 03/01/2021 12:00:0 0 AM EDT Health system Outpatient Attender: AMY BURNS PA Main Office 02/28/2021 1 0:15:00 AM EDT MED[facility] ([facility]) Outpatient Attender: BOBBY Cm/Aris/Johnson/R eindl 02/28/2021 09:30:00 AM EDT [facility] ([facility] [place] [address] [facility] [address] 01/31/2021 12:00:00 AM EDT eCW1 ([facility]) Outpatient Attender: BARBIE FINCH NP [email or web address]-BF.[facility] 12:00:00 AM EDT - 12/13/2020 11:17:07 AM EDT [facility] Outpatient Attender: Michael Noyola MD Admitter: Mcihael Noyola MDReferrer: JACQUIE TAPIA [email or web address] 11/29/2020 07:38:00 AM EDT - 11/29/2020 01:47:00 PM EDT Health system Patient discharged. Outpatient Attender: Michael Noyola MDReferrer: Michael Cassidy MD MOB-MOB.PAT 11/24/2020 09:22:17 AM EDT - 11/24/2020 10:43:53 AM EDT Health system Outpatient Referrer: Michael Noyola MD MOB-MOB.PAT 12/2020 08:29:32 AM EDT - 11/24/2020 08:29:41 AM EDT [facility] [place] [address] [facility] [address] 11/24/2020 12:00:00 AM EDT eCW1 ([facility]) Outpatient [id number] 11/03/2020 03:22:16 PM EDT Health system Outpatient Referrer: Michael Noyola MD 11/03/2020 01:04:2 7 PM EDT [facility] Outpatient Referrer: Michael Noyola MD 09/28/2020 01:53:2 2 PM EST [facility] Outpatient Attender: Michael Noyola MD BF-BF 09/14/2020 12:00:0 0 AM EST Health system Outpatient Attender: AMY TROTTER Main Office 08/31/2020 0 9:45:00 AM EST [facility] ([facility]) Outpatient Attender: Jolanta TROTTER Main Office 06/03/2020 10:15:0 0 AM EST [facility] ([facility]) Outpatient Attender: Jolanta TROTTER Main Office 04/22/2020 07:45:0 0 AM EDT [facility] ([facility]) Immunizations Vaccine Date Status Description Data Source(s) COVID-19 VACCINE Pfizer 10/10/2020 12:00:00 AM EDT completed [facility] Vaccine Series Complete: YESThis Data wa s Submitted to [facility] Via [employer]. COVID-19 VACCINE Pfizer 09/19/2020 12:00:00 AM EST completed [facility] Vaccine Series Complete: NOThis Data was Submitted to [facility] [employer]. Medications Medication Brand Name Start Date Product Form Dose Route Admi nistrative Instructions Pharmacy Instructions Status Indications Reaction Description Data Source(s) 60 mcg (15 mcg x 4)/0.5 mL 04/28/2021 12:00:00 AM EDT [facility] [place] 0 USE DIRECTED USE DIRECTED SOLD: 04/28/2021 [facility] 200-62.5-25 mcg 04/03/2021 12:00:00 AM EDT blister with mala ce 60 INHALE ONE PUFF BY MOUTH EVERY DAY INHALE ONE PUFF BY MOUTH EVERY DAY SOLD: 04/03/2021 [facility] 200-62.5-25 mcg 04/03/2021 12:00:00 AM EDT blister with mala ce 60 INHALE ONE PUFF BY MOUTH EVERY DAY INHALE ONE PUFF BY MOUTH EVERY DAY SOLD: 05/03/2021 [facility] 200-62.5-25 mcg 04/03/2021 12:00:00 AM EDT blister with mala ce 60 INHALE ONE PUFF BY MOUTH EVERY DAY INHALE ONE PUFF BY MOUTH EVERY DAY SOLD: 06/03/2021 [facility] Trelegy Ellipta Trelegy Ellipta 04/03/2021 12:00:00 AM EDT active MEDENT ([facility], ) 150 mg 2021 12:00:00 AM EDT tablet 180 TAKE ONE TABLET BY MOUTH TWICE A DAY TAKE ONE TABLET BY MOUTH TWICE A DAY SOLD: 04/03/2021 [facility] 90 mcg/actuation 03/30/2021 12:00:00 AM EDT HFA aerosol inha ler 8 INHALE TWO PUFFS BY MOUTH FOUR TIMES A DAY NEEDED INHALE TWO PUFFS BY MOUTH FOUR TIMES A DAY NEEDED SOLD: 03/31/2021 [facility] 30 ACTUAT fluticasone furoate 0.1 MG/ACT UAT / umeclidinium 0.0625 MG/ACTUAT / vilanterol 0.025 MG/ACTUAT Dry Powder Inhaler [Trelegy] 100-62.5-25 mcg FLUTICASONE/UMECLIDIN/VILANTER 03/01/2021 12:00:00 AM EDT blister with device 60 INHALE ONE PUFF BY MOUTH EVERY DAY INHALE ONE PU FF BY MOUTH EVERY DAY SOLD: 03/03/2021 [facility] Trelegy Ellipta Trelegy Ellipta 02/28/2021 12:00:00 AM EDT completed [facility] ([facility]) Trelegy Ellipta Trelegy Ellipta 02/27/2021 12:00:00 AM EDT RESPIRATORY active [facility] ([facility]) 5 mg 02/22/2021 12:00:00 AM EDT tablet 180 TAKE ONE TABLET BY MOUTH TWICE A DAY TAKE ONE TABLET BY MOUTH TWICE A DAY SOLD: 05/26/2021 [facility] 5 mg 02/22/2021 12:00:00 AM EDT tablet 180 TAKE ONE TABLET BY MOUTH TWICE A DAY TAKE ONE TABLET BY MOUTH TWICE A DAY SOLD: 02/22/2021 [facility] Bisoprolol Fumarate 5 MG Oral Tablet Bisoprolol Fumarate 12:00:00 AM EDT ORAL active [facility] ([facility]) normal saline flush 0.9 % injection 3 mL [id number] 11/29/2020 02:00:00 PM EDT 3 mL Intravenous active 3 mL , Intravenous, Every 8 hours (scheduled), First dose on Sat11/29/20 at 1400, PACU (only)
flush per protocol, D/C Main IV fluid if appropriate
Health system Medication administered onsite fentaNYL Citrate (PF) (SUBLIMAZE) injection 25 mcg [id number] 11/29/2020 10:41:58 AM EDT 25 ug Intravenous active 25 mcg, Intravenous, Every 5 min PRN, moderate pain (4 to 6), Starting on Sat11/29/20 at 1041, For 5 doses, PACU (only) Health system Medication administered onsite ondansetron (ZOFRAN) injection 4 mg [id number] 11/29/2020 10:41:5 8 AM EDT 4 mg Intravenous active 4 mg, In travenous, Once as needed, nausea, vomiting, Starting on Sat11/29/20 at 1041, For 1 dose, PACU (only)
If not given in last 4 hours
Health system Medication administered onsite HYDROmorphone (DILAUDID) injection 0.2 mg [id number] 11/29/2020 10:41:58 AM EDT 0.2 mg Intravenous active 0.2 mg, Intravenous, Every 5 min PRN, severe pain (7-10), Starting on Sat11/29/20 at 1041, For 5 doses, PACU (only) Health system Medication administered onsite Albuterol 0.833 MG/ML / Ipratropium Brom simon 0.167 MG/ML Inhalant Solution ipratropium-albuterol (DUO-NEB) 0.5-2.5 mg/mL nebulizer solution 3 mL ipratropium-albuterol (DUO-NEB) 0.5-2.5 mg/mL nebulizer solution 3 mL 11/29/2020 10:41:58 AM EDT 3 mL Inhalation active 3 mL, Inhalation, Once as needed, shortness of breath, Starting on Sat11/29/20 at 1041, For 1 dose, PACU (only) Health system Medication administered onsite 10 ML Atropine Sulfate 0.1 MG/ML Prefill ed Syringe atropine sulfate injection 0.5 mg atropine sulfate injection 0.5 mg 11/29/2020 10:41:57 AM EDT 0.5 mg active 0.5 mg, Intrave nous Push, Every 5 min PRN, other, As needed, for heart rate less than 60 BPM and the patient is hemodynamically unstable and/or SBP is less than 90mmHg, Starting on Sat11/29/20 at 1041, For 1 day, PACU (only)
Not to exceed a total of 3 mg or 0.04 mg/kg. Max of 6 doses
Health system Medication administered onsite protamine injection [id number] 11/29/2020 10:32:30 AM EDT active As needed, Starting on Sat11/29/20 at 1032, Intra-Proc edure Health system Medication administered onsite 1 ML heparin sodium, porcine 1000 UNT/ML Injection hep irwin (porcine) injection heparin (porcine) injection 11/29/2020 10:00:31 AM EDT active As needed, Starting on Sat11/29/20 at 1000, Intra-Procedure Health system Medication administered onsite lidocaine (PF) (XYLOCAINE-MPF) 1 % injection [id number] 05/2021 09:56:53 AM EDT active As needed, Start ing on Sat11/29/20 at 0956, Intra-Procedure Health system Medication administered onsite normal saline flush 0.9 % injection 3 mL [id number] 11/29/2020 09:00:00 AM EDT 3 mL Intravenous active 3 mL , Intravenous, Every 8 hours (scheduled), First dose on Sat11/29/20 at 0900, Pre-op
Rapid push positive pressure flushing shall be performed with a 10 cc normal saline syringe to check the PATENCY of a PIV site prior to any infusion therapy initiation unless resistance is met.
Health system Medication administered onsite normal saline flush 0.9 % injection 3 mL [id number] 11/29/2020 09:00:00 AM EDT 3 mL Intravenous active 3 mL , Intravenous, Every 8 hours (scheduled), First dose on Sat11/29/20 at 0900, Pre-op
Rapid push positive pressure flushing shall be performed with a 10 cc normal saline syringe to check the PATENCY of a PIV site prior to any infusion therapy initiation unless resistance is met.
Health system Medication administered onsite 5 mg 09/16/2020 12:00:00 AM EST tablet 90 TAKE ONE TABLET BY MOUTH EVERY DAY TAKE ONE TABLET BY MOUTH EVERY DAY SOLD: 09/17/2020 [facility] 5 mg 09/16/2020 12:00:00 AM EST tablet 90 TAKE ONE TABLET BY MOUTH EVERY DAY TAKE ONE TABLET BY MOUTH EVERY DAY SOLD: 04/12/2021 [facility] 5 mg 09/16/2020 12:00:00 AM EST tablet 90 TAKE ONE TABLET BY MOUTH EVERY DAY TAKE ONE TABLET BY MOUTH EVERY DAY SOLD: 12/10/2020 [facility] Prednisone 5 MG Oral Tablet Prednisone 08/30/2020 12:00:00 AM EST active [facility] ([facility]) 10 mg 08/22/2020 12:00:00 AM EST tablet 40 TAKE 4 TABLETS BY MOUTH DAILY FOR 4 DAYS , 3 TABLETS DAILY FOR 4 DAYS , 2 TABLETS DAILY FOR 4 DAYS THEN 1 TABLET DAILY FOR 4 DAYS AND STOP TAKE 4 TABLETS BY MOUTH DAILY FOR 4 DAYS , 3 TABLETS DAILY FOR 4 DAYS , 2 TABLETS DAILY FOR 4 DAYS THEN 1 TABLET DAILY FOR 4 DAYS AND STOP SOLD: 08/23/2020 [facility] 250-50 mcg/dose 05/28/2020 12:00:00 AM EST blister with mala ce 180 INHALE ONE PUFF BY MOUTH TWICE A DAY INHALE ONE PUFF BY MOUTH TWICE A DAY SOLD: 05/31/2020 [facility] 60 ACTUAT Fluticasone propionate 0.25 MG /ACTUAT / salmeterol 0.05 MG/ACTUAT Dry Powder Inhaler [Advair] 250-50 mcg/dose FLUTICASONE PROPION/SALMETEROL 05/28/2020 12:00:00 AM EST blister with device 180 I NHALE ONE PUFF BY MOUTH TWICE A DAY INHALE ONE PUFF BY MOUTH TWICE A DAY SOLD: 12/20/2020 [facility] 250-50 mcg/dose 05/28/2020 12:00:00 AM EST blister with mala ce 180 INHALE ONE PUFF BY MOUTH TWICE A DAY INHALE ONE PUFF BY MOUTH TWICE A DAY SOLD: 09/10/2020 [facility] 20 mg 04/07/2020 12:00:00 AM EDT capsule,delayed release (DR/EC) 180 TAKE ONE CAPSULE BY MOUTH TWICE A DAY TAKE ONE CAPSULE BY MOUTH TWICE A DAY SOLD: 09/27/2020 [facility] 20 mg 04/07/2020 12:00:00 AM EDT capsule,delayed release (DR/EC) 180 TAKE ONE CAPSULE BY MOUTH TWICE A DAY TAKE ONE CAPSULE BY MOUTH TWICE A DAY SOLD: 03/17/2021 [facility] 150 mg 03/18/2020 12:00:00 AM EDT tablet 180 TAKE ONE TABLET BY MOUTH TWICE A DAY TAKE ONE TABLET BY MOUTH TWICE A DAY SOLD: 09/27/2020 [facility] 150 mg 03/18/2020 12:00:00 AM EDT tablet 180 TAKE ONE TABLET BY MOUTH TWICE A DAY TAKE ONE TABLET BY MOUTH TWICE A DAY SOLD: 01/01/2021 [facility] 150 mg 03/18/2020 12:00:00 AM EDT tablet 180 TAKE ONE TABLET BY MOUTH TWICE A DAY TAKE ONE TABLET BY MOUTH TWICE A DAY SOLD: 06/19/2020 [facility] 5 mg 02/08/2020 12:00:00 AM EDT tablet 180 TAKE ONE TABLET BY MOUTH TWICE A DAY TAKE ONE TABLET BY MOUTH TWICE A DAY SOLD: 11/17/2020 [facility] 5 mg 02/08/2020 12:00:00 AM EDT tablet 180 TAKE ONE TABLET BY MOUTH TWICE A DAY TAKE ONE TABLET BY MOUTH TWICE A DAY SOLD: 05/13/2020 [facility] 5 mg 02/08/2020 12:00:00 AM EDT tablet 180 TAKE ONE TABLET BY MOUTH TWICE A DAY TAKE ONE TABLET BY MOUTH TWICE A DAY SOLD: 08/13/2020 [facility] 90 mcg/actuation 11/23/2019 12:00:00 AM EDT HFA aerosol inha ler 8 INHALE 2 PUFFS FOUR TIMES A DAY NEEDED INHALE 2 PUFFS FOUR TIMES A DAY NEEDED SOLD: 06/03/2020 [facility] 90 mcg/actuation 11/23/2019 12:00:00 AM EDT HFA aerosol inha ler 8 INHALE 2 PUFFS FOUR TIMES A DAY NEEDED INHALE 2 PUFFS FOUR TIMES A DAY NEEDED SOLD: 11/03/2020 [facility] 5 mg 09/22/2019 12:00:00 AM EST tablet 90 TAKE ONE TABLET BY MOUTH EVERY DAY TAKE ONE TABLET BY MOUTH EVERY DAY SOLD: 06/19/2020 [facility] Insurance Providers Payer name Policy type / Coverage type Policy ID Covered libertarian ID Covered libertarian's relationship to cherry Policy Cherry Plan Information [facility] [id number] xxxxxxxxxxxx [id number] Elisabet YLS [id number] INSURANCE COVID-19 COVID Elisabet C OVID INSURANCE COVID-19 COVID Elisabet C OVID INSURANCE COVID-19 [id number] [facility] PI PI ANSI-Commercial [id number] [facility] Maintenance [facility] ([facility]) [id number] Self [id number] ANSI-Commercial [id number] ANSI-Commercial [id number] ANSI-Commercial [id number] [employer] [facility] Commercial [id number] Self [id number] [facility] Commercial [id number] Self [id number] ANS-Commercial [id number] [facility] Health Maintenance Organization ([facility]) [id number] Self [id number] [facility] Health Maintenance Organization (O) [id number] Self [id number] [facility] O [id number] S [id number] [employer] Commercial [id number] Self [facility] [id number] SP [id number] [facility] [employer] [facility] Health Maintenance Organization (HMO) [id number] Self BCBS EMPIRE NITZA DIV [id number] SP [id number] EMPIRE BLUE CROSS BLUE SHIELD-O/P [id number] 18 [id number] [facility] [id number] 18 [id number] EMPIRE BLUE CROSS BLUE SHIELD-O/P [id number] 18 [id number] EMPIRE BLUE CROSS BLUE SHIELD-O/P [id number] 18 [id number] EMPIRE BLUE CROSS BLUE SHIELD-O/P [id number] 18 [id number] [facility] [id number] SP [id number] BCBS EMPIRE NITZA DIV [id number] SP [id number] [facility] [id number] SP [id number] BCBS EMPIRE NITZA DIV [id number] SP [id number] [facility] [employer] [id number] Self [id number] Problems, Conditions, and Diagnoses Code Display Name Description Problem Type Effective Dates Data Source(s) I48.19 Other persistent atrial fibrillation Oth er persistent atrial fibrillation Diagnosis 03/01/2021 07:59:55 AM EDT Health system U07.1 COVID-19 COVID-19 Diagnosis 11/24/2020 08:29:32 AM ED T Health system I48.19 Persistent atrial fibrillation Persistent atrial fibri llation [id number] 09/20/2020 12:00:00 AM EST Health system Surgeries/Procedures Procedure Description Date Indications Data Source(s) Spirometry 04/03/2021 12:00:00 AM EDT [facility] OFFICE OUTPATIENT VISIT 25 MINUTES 04/03/2021 12:00:00 AM EDT [facility] ([facility]) Spirometry 02/28/2021 12:00:00 AM EDT [facility] ([facility]) OFFICE OUTPATIENT VISIT 25 MINUTES 02/28/2021 12:00:00 AM EDT [facility]) ECG ROUTINE ECG W/LEAST 12 LDS W/I&R 02/28/2021 12:00: 00 AM EDT [facility] ([facility]) OFFICE OUTPATIENT VISIT 25 MINUTES 02/28/2021 12:00:00 AM EDT [facility] ([facility]) XTRNL ECG < 48 HR RECORDING 01/31/2021 12:00:00 AM EDT [facility] ([facility]) XTRNL ECG CONTINUOUS RHYTHM PHYS REVIEW&INTERPJ 2020 12:00:00 AM EDT [facility] ([facility]) XTRNL ECG < 48 HR RECORDING 12/28/2020 12:00:00 AM EDT [facility] ([facility]) XTRNL ECG CONTINUOUS RHYTHM PHYS REVIEW&INTERPJ 2020 12:00:00 AM EDT [facility] ([facility]) ECG ROUTINE ECG W/LEAST 12 LDS W/I&R <td>POCT AMB EKG</td><td>Routine</td><td>12/13/2020 11:19 AM EDT</td><td> Persistent atrial fibrillation</td><td> </td> 12/13/2020 11:19:00 AM EDT Persistent atrial fibrillation [facility] Persistent atrial fibrillation EP STUDY <td>EP STUDY</td><td>Routine </td><td>11/29/2020 10:29 AM EDT</td><td> Persistent atrial fibrillation</td><td> </td> 11/29/2020 10:29:48 AM EDT Persistent atrial fibrillation [facility] Persistent atrial fibrillation ECG ROUTINE ECG W/LEAST 12 LDS TRCG ONLY W/O I&R <td>E CG 12- LEAD</td><td>Routine</td><td>11/24/2020 10:40 AM EDT</td><td> Persistent atrial fibrillation</td><td></td> 11/24/2020 10:40:14 AM EDT Persistent atrial fibrillation Health system Persistent atrial fibrillation BLOOD COUNT COMPLETE AUTOMATED <td>CBC</td><td>Routine </td><td>11/24/2020 10:35 AM EDT</td><td> Persistent atrial fibrillation</td><td> </td> 11/24/2020 10:35:00 AM EDT Persistent atrial fibrillation [facility] Persistent atrial fibrillation BLOOD TYPING ABO <td>TYPE AND SCREEN</td><td> Routine</td><td>11/24/2020 10:35 AM EDT</td><td> Persistent atrial fibrillation</td><td> </td> 11/24/2020 10:35:00 AM EDT Persistent atrial fibrillation [facility] Persistent atrial fibrillation BASIC METABOLIC PANEL CALCIUM TOTAL <td>BASIC METABOLI C PANEL</td><td>Routine</td><td>11/24/2020 10:35 AM EDT</td><td> Persistent atrial fibrillation</td><td> </td> 11/24/2020 10:35:00 AM EDT Persistent atrial fibrillation [facility] Persistent atrial fibrillation ECG ROUTINE ECG W/LEAST 12 LDS W/I&R 08/31/2020 12:00: 00 AM EST [facility] ([facility]) OFFICE OUTPATIENT VISIT 25 MINUTES 08/31/2020 12:00:00 AM EST [facility] ([facility]) ECG ROUTINE ECG W/LEAST 12 LDS W/I&R 06/03/2020 12:00: 00 AM EST [facility] ([facility]) ECHO TTHRC R-T 2D W/WOM-MODE COMPL SPEC&COLR DOP 05/31 12:00:00 AM EST [facility] ([facility]) ECG ROUTINE ECG W/LEAST 12 LDS W/I&R 04/22/2020 12:00: 00 AM EDT [facility] ([facility]) Results ID Date Data Source [id number] 03/01/2021 12:15:19 PM EDT [facility] INFORMATIONPatient MRN Name Date of Age Gend*PT [id number] Scott Billings 1955 65 years M ---PT Location Admission Date/Time Visit ID Attending Provider --- --- --- --- EPI ID CSN Admitting Provider [id number] ---[facility] [address] [facility], [address] (First Floor)[place], [place] [address]Dc.: Fax: Matient: Scott Billings : 1955Date: 03/01/21CARDIOLOGY TELEMEDICINE VISITPatient was identified by name and date of .Verbal consent was obtained from the patient for this telemedicine visit.Patient is aware of the risks, limitations, and benefits of a telemedicinevisit.This telemedicine assessment was conducted remotely with the assistance ofFaves communication technology. Telephone Only Codes [id number]: 21-30 minutesof medical discussion: Telephone Only .Subjective:Scott Billings is 65 years male with atrial fibrillationHISTORY OF PRESENT ILLNESS: Patient is evaluated today for his atrialfibrillation. Since his cryoablation he has not had any documented recurrenceof his atrial fibrillation. He was at his neck pinner office yesterday and hadan EKG. I am able to review it and it confirms sinus rhythm. He denies anypalpitations. He denies any chest pain or shortness of breath. He denies anysyncope.PHx:1. History of typical atrial flutter status post ablation December 24. Recurrence of atrial flutter. The patient underwent repeat EP testing hewas in sinus rhythm. There was bidirectional isthmus conduction and heunderwent re-ablation.3. Questionable atrial fibrillation4. COPD5. Status post cryoablation for atrial fibrillation . Question of sleep apneaFAMILY HISTORY: family history includes Colon cancer in his mother; Heartdisease in his father and sister.SOCIAL HISTORY: reports that he quit smoking about 13 years ago. His smokinguse included cigarettes. He has a 45.00 pack-year smoking history. He has neverused smokeless tobacco. He reports current alcohol use of about 12.0 standarddrinks of alcohol per week. He reports previous drug use. Drug: Marijuana.REVIEW OF SYSTEMS: Constitutional: Denies any. Denies fever, chills, weightloss or gain. Eyes: Denies blindness. Cardiovascular: Denies rotations.Respiratory: Denies shortness of breath and dyspnea on exertion. GI: Deniesabdominal pain, nausea or vomiting. : Denies dysuria or hematuria.Musculoskeletal: Negative lower extremity edema. Integumentary: Denies rash.Neurologic: Denies seizures. Psychiatric: Denies depression or anxiety.Hematologic: Denies anemia.Current Outpatient Medications: ADVAIR DISKUS 250-50 MCG/DOSE DISKUS, Inhale 1 puff 2 (two) times a day ,Disp: , Rfl: 5 albuterol (PROVENTIL HFA;VENTOLIN HFA) 108 (90 Base) MCG/ACT inhaler, Inhale4 puffs every 6 (six) hours as needed for wheezing, Disp: , Rfl: Apixaban (ELIQUIS) 5 MG TABS tablet, Take 1 tablet (5 mg total) by mouth 2(two) times a day, Disp: 60 tablet, Rfl: 5 bisoprolol (ZEBETA) 5 MG tablet, Take 5 mg by mouth daily 1/2 QD, Disp: ,Rfl: flecainide (TAMBOCOR) 150 MG tablet, Take 150 mg by mouth 2 (two) times a day, Disp: , Rfl: naproxen sodium (Aleve) 220 MG tablet, Take 440 mg by mouth daily as neededfor pain, Disp: , Rfl: omeprazole (PRILOSEC) 20 MG capsule, Take 20 mg by mouth daily , Disp: , Rfl: sildenafil (VIAGRA) 100 MG tablet, Take 100 mg by mouth daily as needed forerectile dysfunction, Disp: , Rfl:ALLERGIES: is allergic to penicillins.Objective:PHYSICAL EXAMINATION: Deferred due to Telemedicine encounterSTUDIES REVIEWED: Last office note, EKG from neck pinner office 02/28/2021 aswell as ablation reportEKG: Deferred due to telemedicine encounter.Assessment/Plan:ASSESSMENT/PLAN: This is a supraventricular and atrial fibrillation status postablation doing very well. I reminded the patient it is too soon to know whetheror not he will have long-term relief but I am very encouraged. I wouldrecommend no change in his current medical regimen. We will continue to followwith Dr. Humphrey. If over the course of the next 3 to 6 months he remainsarrhythmia free I would recommend stopping his flecainide.I have spent 15 minutes with the patient, counseling/coordinating the patient'scare. I discussed the diagnosis of atrial fibrillation and discussed Managementoption risks and benefitsFollow Up as neededSignature: Michael Knapp MD, [facility], [facility]ITALCardiac Electrophysiology and Arrhythmia ServiceDate: March 01, 2021Time: 12:11 PMThis document or parts of this document, were dictated using Soundayware. A reasonable attempt at proofreading has been made to minimize errors.Please call with any questions or corrections. Name Value Range Interpretation Code Description Data Philomena rce(s) Supporting Document(s) ID Date Data Source [id number] 02/28/2021 09:29:00 AM EDT [facility] ([facility], ) Name Value Range Interpretation Code Description Data Philomena rce(s) Supporting Document(s) FVC-Pred 4.93 L [facility] ([facility]) PDFReport Laboratory test result [facility] ([facility]) FVC-%Pred-Pre 45 L [facility] ([facility]) FVC-Pre 2.26 L [facility] ([facility]) FVC-LLN 3.95 L [facility] ([facility]) Fev1-Pre 1.33 L [facility] ([facility]) Fev1-Pred 3.70 L [facility] ([facility]) Fev1-%Pred-Pre 35 L [facility] ([facility]) Fev1-LLN 2.88 L [facility] ([facility]) Fev6-Pred 4.69 L [facility] ([facility]) Fev6-Pre 2.26 L [facility] ([facility]) Fev6-%Pred-Pre 48 L [facility] ([facility]) Fev6-LLN 3.75 L [facility] ([facility]) Kfq6uns-Ewbc 75 % [facility] ([facility]) Xly0ncm-Bmn 59 % [facility] ([facility]) Ejr1xsn-%Pred-Pre 78 % [facility] ([facility]) Wnj8bba-XHH 65 % [facility] ([facility]) Ngf3vku-Vcn 100 % [facility] ([facility]) Dox5wfj-Rmlx 95 % [facility] ([facility]) Iiu4vla-%Pred-Pre 104 % [facility] ([facility]) FEFMax-Pred 9.33 L/E/sec [facility] ([facility]) FEFMax-Pre 4.55 L/E/sec [facility] ([facility]) FEFMax-%Pred-Pre 48 L/E/sec [facility] ([facility]) FEFMax-LLN 6.91 L/E/sec [facility] ([facility]) Utq6338-Zqiq 2.97 L/E/sec [facility] ([facility]) Gjr7525-%Pred-Pre 25 L/E/sec [facility] ([facility]) Oxc9933-Qjf 0.75 L/E/sec [facility] ([facility]) Icv2ska4-Xgjh 79 % [facility] ([facility]) Lgr7554-IID 1.29 L/E/sec [facility] ([facility]) ExpTime-Pre 3.81 sec [facility] ([facility]) Ovx0btz8-Bue 59 % [facility] ([facility]) Txz9qvg7-%Pred-Pre 74 % [facility] ([facility]) Bpr2ori7-NBY 70 % [facility] ([facility]) ID Date Data Source [id number] 01/31/2021 09:40:00 AM EDT [facility] Name Value Range Interpretation Code Description Data Philomena rce(s) Supporting Document(s) Cholesterol 180 [facility] ([facility]) Triglycerides 97 [facility] ([facility]) HDL 54 [facility] Cholesterol in LDL [Mass/volume] in Serum or Plasma by calculation 10 7 [facility] ([facility]) Chol/HDL Ratio 3.333 [facility] ([facility] ID Date Data Source [id number] 01/31/2021 09:40:00 AM EDT [facility] ([facility]) Name Value Range Interpretation Code Description Data Philomena rce(s) Supporting Document(s) Albumin [Mass/volume] in Serum or Plasma 3.4 [facility] ([facility]) Calcium [Mass/volume] in Serum or Plasma 8.9 [facility] ([facility]) Alanine aminotransferase [Enzymatic activity/volume] in Serum or Pl asma 22 [facility] ([facility]) Carbon dioxide, total [Moles/volume] in Serum or Plasma 29 [facility] ([facility]) Chloride [Moles/volume] in Serum or Plasma 105 [facility] ([facility]) Potassium [Moles/volume] in Serum or Plasma 4.7 [facility] ([facility]) Alkaline phosphatase [Enzymatic activity/volume] in Serum or Plasma 5 7 [facility] ([facility]) Sodium 141 [facility] ([facility] Protein [Mass/volume] in Serum or Plasma 7.5 [facility] ([facility]) Aspartate aminotransferase [Enzymatic activity/volume] in Serum or Plasma 14 [facility] ([facility]) Urea nitrogen [Mass/volume] in Serum or Plasma 9 [facility] ([facility]) Glucose 90 83-110 [facility] ([facility] Creatinine For GFR 1.05 [facility] ([facility]) ID Date Data Source [id number] 01/31/2021 09:40:00 AM EDT [facility] ([facility]) Name Value Range Interpretation Code Description Data Philomena rce(s) Supporting Document(s) White Blood Count 6.9 5.0-10.0 [facility] ([facility]) Red Blood Count 4.50 4.00-5.40 [facility] ([facility]) Platelets 253 172-450 [facility] Hemoglobin 14.5 [facility] ([facility]) Hematocrit 44.8 [facility] ([facility]) ID Date Data Source [id number] 01/31/2021 12:00:00 AM EDT [id number] ([facility]) Name Value Range Interpretation Code Description Data Philomena rce(s) Supporting Document(s) 349 330-437 VITAMIN B12 LEVEL eCW1 ([facility]) ID Date Data Source TOTAL IRON BINDING CAPACIT 01/31/2021 12:00:00 AM EDT eCW1 ( [facility]) Name Value Range Interpretation Code Description Data Philomena rce(s) Supporting Document(s) 105 65-175 IRON (FE) eCW1 ([facility]) 287 250-450 TOTAL IRON BINDING CAPACI TY eCW1 ([facility]) 36.6 19.7-50.0 PERCENT SATURATION eCW1 ([facility]) ID Date Data Source PSA SCREENING 01/31/2021 12:00:00 AM EDT eCW1 ([facility]) Name Value Range Interpretation Code Description Data Philomena rce(s) Supporting Document(s) 0.64 < 4.00 PSA SCREENING eCW1 ([facility]) ID Date Data Source LIPID PANEL (CARDIAC RISK) 01/31/2021 12:00:00 AM EDT eCW1 ( [facility]) Name Value Range Interpretation Code Description Data Philomena rce(s) Supporting Document(s) Cholesterol [Moles/volume] in Serum or Plasma 180 <200 CHOLESTEROL LEVEL eCW1 ([facility]) Triglyceride [Mass/volume] in Serum or Plasma by calculation 97 <150 TRIGLYCERIDES LEVEL eCW1 ([facility]) 126 NON-HDL-C eCW1 ([facility]) Cholesterol in HDL [Moles/volume] in Serum or Plasma 54 >40 HDL CHOLESTEROL eCW1 ([facility]) Cholesterol in LDL [Mass/volume] in Serum or Plasma by calculation 107 <100 LDL CHOLESTEROL eC ([facility]) 3.333 <5 CHOLESTEROL RISK RATIO eCW1 ([facility]) ID Date Data Source FOLATE 01/31/2021 12:00:00 AM EDT eCW1 ([facility]) Name Value Range Interpretation Code Description Data Philomena rce(s) Supporting Document(s) 11.7 >5.4 FOLATE eCW1 ([facility]) ID Date Data Source FERRITIN 01/31/2021 12:00:00 AM EDT eCW1 ([facility]) Name Value Range Interpretation Code Description Data Philomena rce(s) Supporting Document(s) 67 26-388 FERRITIN eCW1 ([facility]) ID Date Data Source Comprehensive Metabolic Profile (CMP) 01/31/2021 12:00:00 AM EDT eCW1 ([facility]) Name Value Range Interpretation Code Description Data Philomena rce(s) Supporting Document(s) 90 70-100 GLUCOSE, FASTING eCW1 ([facility]) 1.05 0.70-1.30 CREATININE FOR GFR eCW1 ([facility]) 9 7-18 BLOOD UREA NITROGEN eCW1 ([facility]) 141 136-145 SODIUM LEVEL eCW1 ([facility]) 4.7 3.5-5.1 POTASSIUM SERUM eCW1 ([facility]) > 60.0 >49 GLOMERULAR FILTRATION RATE eCW 1 ([facility]) 105 98-107 CHLORIDE LEVEL eCW1 ([facility]) 29 21-32 CARBON DIOXIDE LEVEL eCW1 [facility]) 8.9 8.8-10.2 CALCIUM LEVEL eCW1 ([facility]) 22 12-78 ALT/SGPT eCW1 ([facility]) 0.4 0.2-1.0 BILIRUBIN,TOTAL eCW1 ([facility]) 14 7-37 AST/SGOT eCW1 ([facility]) 57 45-117 ALKALINE PHOSPHATASE eCW1 ([facility]) 0.8 ALBUMIN/GLOBULIN RATIO eCW1 ([facility]) 7.5 6.4-8.2 TOTAL PROTEIN eCW1 ([facility]) 3.4 3.2-5.2 ALBUMIN eCW1 ([facility]) ID Date Data Source CBC - Complete Blood Count 01/31/2021 12:00:00 AM EDT eCW1 ( [facility]) Name Value Range Interpretation Code Description Data Philomena rce(s) Supporting Document(s) 4.50 4.30-6.10 RED BLOOD COUNT eCW1 ([facility]) 6.9 4.0-10.0 WHITE BLOOD COUNT eCW1 ([facility]) 44.8 42.0-52.0 HEMATOCRIT eCW1 ([facility]) 99.6 80.0-96.0 MEAN CORPUSCULAR VOLUME e CW1 ([facility]) 14.5 13.5-17.5 HEMOGLOBIN eCW1 ([facility]) 32.4 32.0-36.5 MEAN CORPUSCULAR HGB CONC eCW1 ([facility]) 13.2 11.5-14.5 RED CELL DISTRIBUTION WID TH eCW1 ([facility]) 32.2 27.0-33.0 MEAN CORPUSCULAR HEMOGLOB IN eCW1 ([facility]) 253 150-450 PLATELET COUNT, AUTOMATED eCW1 ([facility]) ID Date Data Source [id number] 12/13/2020 11:22:49 AM EDT [facility] INFORMATIONPatient MRN Name Date of Age Gend*PT [id number] Scott Billings 1955 65 years M ---PT Location Admission Date/Time Visit ID Attending Provider --- --- --- --- EPI ID CSN Admitting Provider [id number] ---Cardiology Office NoteName: Scott Billings Gender: maleDate of : 1955 Age: 65 yearsPrimary Care Provider / Referring Physician: THEA GARDNERurrent HistoryChief Complaint: Follow-up to recent cryoablation for atrial fibrillationHPI:This patient is a 65 years male presents today for follow-up. He has thefollowing medical problem list:1. History of typical atrial flutter status post ablation December 24. Recurrence of atrial flutter. The patient underwent repeat EP testing hewas in sinus rhythm. There was bidirectional isthmus conduction and heunderwent re-ablation.3. Questionable atrial fibrillation4. COPD5. Status post cryoablation for atrial fibrillation . Question of sleep apneaPatient presents today for follow-up. We did review his recent procedure. Heis in normal sinus rhythm based on today's EKG.. The patient tells me that hehas not had any difficulty swallowing. He denies any fevers, chills, sweats.He has not had any chest pain or pressure. He does admit to some shortness ofbreath but he is also known COPD and does follow with pulmonary for that. Hedenies any lower extremity edema and his site is healing without incident. Idid question him regarding sleep apnea. He tells me that he did have a test awhile ago and has not heard results. I did review with him the importance oftreating sleep apnea if he does have it and he will follow-up with PCP inregards to this issue. He does follow with Dr Norwood's office for primarycardiology.Review of Systems General Denies dizziness or lightheadedness. Denies any recent, unexpectedweight changes. HEENT Denies any loss or change of vision. Denies tinnitus. Respiratory Denies PND, orthopnea, ORTIZ, hemoptysis, cough, or shortness ofbreath. Cardiac Denies chest pain or pressure, denies palpitations GI Denies melena, hematochezia, nausea, or vomiting. MS Denies any lower extremity edema. Neuro Denies speech, motor, or sensory impairment. Psych Denies depression or anxiety. Endo Denies polyuria or polydipsia, denies temperature intolerance. Derm Denies diaphoresis, non-healing skin woundsPast HistoryPast Medical History:Diagnosis Date Asthma Atrial fibrillation Persistent COPD (chronic obstructive pulmonary disease) GERD (gastroesophageal reflux disease) Pneumothorax 11/2013 leftPast Surgical History:Procedure Laterality Date BACK SURGERY COLONOSCOPY ECHOCARDIOGRAM TRANSESOPHAGEAL N/A 11/29/2020 Procedure: ECHO TRANSESOPHAGEAL; Surgeon: Michael Warren MD; Laterality:N/A; EP STUDY N/A 01/16/2019 Procedure: Ablation A-Flutter w2d mapping; Surgeon: Michale Warren MD;Laterality: N/A; EP STUDY N/A 12/04/2019 Procedure: ABLATION A-FLUTTER; Surgeon: Michael Knapp MD; Laterality: N/A;Nonelective, no other mapping needed EP STUDY N/A 2020 Procedure: ABLATION A-FLUTTER; Surgeon: Michael Knapp MD; Laterality: N/A; EP STUDY N/A 11/29/2020 Procedure: ABLATION A-FIB; Surgeon: Michael Warren MD; Laterality: N/A;Transeptal LUMBAR DISCECTOMYFamily HistoryProblem Relation Age of Onset Heart disease Father Heart disease Sister Colon cancer Mother Malig Hyperthermia Neg HxSocial HistorySocioeconomic History Marital status: Spouse name: Not on file Number of children: Not on file Years of education: Not on file Highest education level: Not on fileOccupational History Not on fileTobacco Use Smoking status: Former Smoker Packs/day: 1.50 Years: 30.00 Pack years: 45.00 Types: Cigarettes Quit date: 2007 Years since quittin.4 Smokeless tobacco: Never UsedVaping Use Vaping Use: Never usedSubstance and Sexual Activity Alcohol use: Yes Alcohol/week: 12.0 standard drinks Types: 6 Cans of beer, 6 Shots of liquor per week Comment: 2/week Drug use: Not Currently Types: Marijuana Comment: last used in Sexual activity: Not on fileOther Topics Concern Bike Helmet Not Asked History of Falls Not Asked Self-Exams Not Asked Caffeine Concern Not Asked Hobby Hazards Not Asked Sleep Concern Not Asked Daily Calcium Supplement Not Asked Lead Exposure Not Asked Special Diet Not Asked Daily Vitamin D Supplement Not Asked Service Not Asked Stress Concern Not Asked Domestic Violence in home Not Asked Radon exposure Not Asked Weight Concern Not Asked Exercise Not Asked Seat Belt Not Asked Well water Not Asked Firearms in home Not AskedSocial History Narrative Not on fileSocial Determinants of HealthFinancial Resource Strain: Difficulty of Paying Living Expenses:Food Insecurity: Worried About Running Out of Food in the Last Year: Ran Out of Food in the Last Year:Transportation Needs: Lack of Transportation (Medical): Lack of Transportation (Non-Medical):Physical Activity: Days of Exercise per Week: Minutes of Exercise per Session:Stress: Feeling of Stress :Social Connections: Frequency of Communication with Friends and Family: Frequency of Social Gatherings with Friends and Family: Attends Religion Services: Active Member of Clubs or Organizations: Attends Club or Organization Meetings: Marital Status:Intimate Partner Violence: Fear of Current or Ex-Partner: Emotionally Abused: Physically Abused: Sexually Abused:Medications and AllergiesALLERGIES/SENSITIVITIES: PenicillinsCurrent Outpatient Medications: ADVAIR DISKUS 250-50 MCG/DOSE DISKUS, Inhale 1 puff 2 (two) times a day ,Disp: , Rfl: 5 albuterol (PROVENTIL HFA;VENTOLIN HFA) 108 (90 Base) MCG/ACT inhaler, Inhale4 puffs every 6 (six) hours as needed for wheezing, Disp: , Rfl: Apixaban (ELIQUIS) 5 MG TABS tablet, Take 1 tablet (5 mg total) by mouth 2(two) times a day, Disp: 60 tablet, Rfl: 5 bisoprolol (ZEBETA) 5 MG tablet, Take 5 mg by mouth daily , Disp: , Rfl: flecainide (TAMBOCOR) 150 MG tablet, Take 150 mg by mouth 2 (two) times a day, Disp: , Rfl: naproxen sodium (Aleve) 220 MG tablet, Take 440 mg by mouth daily as neededfor pain, Disp: , Rfl: omeprazole (PRILOSEC) 20 MG capsule, Take 20 mg by mouth daily , Disp: , Rfl: sildenafil (VIAGRA) 100 MG tablet, Take 100 mg by mouth daily as needed forerectile dysfunction, Disp: , Rfl:PhysicalBMI: Body mass index is 30.62 kg/m .Blood Pressure: BP: 112/70 Pulse: Heart Rate: 73Temperature: Temp: 97.2 F Respirations: Resp: 20 Weight: Weight: (!) 105.2 kg (232 lb) O2 Saturation: SpO2: 94 %Physical Exam General Well developed, well nourished, no acute distress Neck Soft and supple without lymphadenopathy or thyromegaly. No JVD. Nobruits. Lungs Clear to auscultation, no crackles, rhonchi, or wheezes Heart Normal S1 S2, no murmurs, clicks, or gallops Musculoskeletal Appears to have normal range of motion x 4 extremities, nojoint swelling. No pedal edema Neuro Alert, orientedx3, no facial asymmetry Derm No rashes, or ulcers Vascular Pulses palpableDiagnosticsLabBMP:Lab ResultsComponent Value Date NA 138 11/24/2020 K 4.4 11/24/2020 CL 101 11/24/2020 CO2 24 11/24/2020 ANIONGAP 13 11/24/2020 CALCIUM 8.9 11/24/2020 GLU 89 11/24/2020 BUN 14 11/24/2020 CREATININE 1.08 11/24/2020 GFRAA >60 11/24/2020 GFRNONAA >60 11/24/2020BC Brief:Lab ResultsComponent Value Date WBC 8.3 11/24/2020 HGB 14.2 11/24/2020 HCT 41.6 11/24/2020 PLT 243 11/24/2020KG:EKG Results (Last 72 hours) 12/13/20 1119 POCT AMB EKG Final result Impression: Sinus rhythm with first-degree AV blockAssessment & Plan1. Paroxysmal atrial fibrillation; status post cryoablation. He currently ismaintaining normal sinus rhythm. He understands to continue with his Eliquis,as well as his rest of his medications. He is on flecainide.He would like his Holter monitor done at [place] if possible. He is aware ofhis upcoming appointment with Dr. Warren. He knows to contact our officeif he has any signs or symptoms of cardiovascular concern secondary to thisprocedure.We appreciate the opportunity to care for this patient.Signature: Barbie Finch NPDate: December 13, 2020Time: 11:20 AMThis document or parts of this document, were dictated using DuneNetworkssoftware. A reasonable attempt at proofreading has been made to minimize errors.Please call with any questions or corrections. Name Value Range Interpretation Code Description Data Philomena rce(s) Supporting Document(s) ID Date Data Source [id number] 11/29/2020 10:53:00 AM EDT [facility] NT INFORMATIONPatient MRN Name Date of Age Gend*PT [id number] Scott Billings 1955 65 years M HOPPT Location Admission Date/Time Visit ID Attending Provider --- --- --- --- EPI ID CSN Admitting Provider [id number] ---Arterial Line PlacementPatient location during procedure: CV hybrid roomIndications for arterial line: hemodynamic monitoringStaffingPerformed by: THEA Negronompleted: patient identified, risks and benefits discussed, surgical consentobtained, anesthesia consent obtained, monitors and equipment checked, pre-opevaluation completed, timeout performed, patient was prepped and draped in usualsterile fashion,Arterial Line InsertionSite prep: chlorhexidineAnesthesia: noneLaterality: leftLocation: radial arteryNeedle gauge: 20 GTechnique: Seldinger technique used, ultrasound guided and landmark techniqueNumber of attempts: 1AssessmentSutured: noDressing: dressing appliedPatient tolerance: tolerated well Name Value Range Interpretation Code Description Data Philomena rce(s) Supporting Document(s) ID Date Data Source [id number] 11/29/2020 10:44:23 AM EDT Health system Name Value Range Interpretation Code Description Data Philomena rce(s) Supporting Document(s) &PDF [facility] JGEPNo5hIuRUJoVb60/UDNerTWPbh7UsKLchMUu1FNypGCOgK2JwbEpzAAyFRU9PTD4LK6zWIFccKWYz yKE [file] AwOTIxOSAwMDAwMCBuDQowMDAwMDEwNDcxIDAwMDAw XX5YGkFfKMCjGTL7PaoqOPVwRQJhwh1UAFWpFVXxCBTtUjOrTGAmERLfTWfqKAMiQLAjXJR0CLAkUEEh VR8MDcNjVPEbNBZtJLgfWTXuCZHehg9WHLJsZNFtAxu8HmKyHNKdGSRoMKenEUFdANTwVEw1BJGzYSCe LC1ECiClISLqWZTqDmRvMREgPDEhve4GSIYlYWDmBd Y8DDSsUKSxYSZkKIrbGJSpDHP9EOe4PYFfCJCtOP1SDcIkFRNxIYnuRRTnTQHmJXEape6WXFJfOSLhGF v9KCBaBJSoGQGeEEpaAFLkUQHyHQCiVJZfTWVhDX5ZRhPeEIFwJuVwGgBkYDTqFWQxrn1KcPFkgXetuv 6AWRhJOe1JfTezALC5ENbuVq0laBQgFELjROXBRq2D uhDfCGSpVAWPUIhzITXbALE7RCL3F1JhPbW1EeB0YzC5Mgr4MrRuJro5KdX6FRM1LiM7TQg9OailUoXp JbexJGywHBb0NWLbOIB0ELobUlXgWJy+SP3lLWg+Jz0Tf0JhlhK9ssOoFIfaKAJ7FG4JHZBUS1CBCb== ID Date Data Source [id number] 11/29/2020 09:57:50 AM EDT [facility] NT INFORMATIONPatient MRN Name Date of Age Gend*PT [id number] Scott Billings 1955 65 years M HOPPT Location Admission Date/Time Visit ID Attending Provider --- --- --- --- EPI ID CSN Admitting Provider [id number] ---AirwayPatient location during procedure: ORUrgency: electiveDifficult airway: noAdvanced airway equipment used: noStaffingPerformed by: Rhina Collazo CRNAAnesthesiologist: Alexander Smith MDIndications and Patient ConditionIndications for airway management: anesthesiaPreoxygenated: yesPatient position: supineIn-line stabilization: noMask ventilation: 1 - vent by maskFinal Airway/ApproachesFinal airway type: ETTNumber of attempts at final approach: 1Number of other approaches attempted: 0Final Airway DetailsFinal ETT airway: ETT - singleCuffed: yesTechnique used for successful ETT placement: direct laryngoscopyCricoid pressure: noRSI: noInsertion site: oralBlade type/size: MAC 3.5ETT size: 7.0 mmMeasured from: lipsETT to lips: 22 cmPlacement verified by: chest auscultation, + ETCO2 and palpation of cuffAuscultation: CTA and equal breath sounds bilateralGrade view: grade I - full view of glottis Name Value Range Interpretation Code Description Data Philomena rce(s) Supporting Document(s) ID Date Data Source [id number] 11/29/2020 08:46:29 AM EDT [facility] NT INFORMATIONPatient MRN Name Date of Age Gend*PT [id number] Scott Billings 1955 65 years M HOPPT Location Admission Date/Time Visit ID Attending [id number] 11/29/20 0738 --- Michael Warren MD([id number]) EPI ID CSN Admitting Provider [id number] Michael Knapp MD([id number])H&P reviewed. The patient was examined and there are no changes to the H&P.Michael Knapp MD8:46 AM Name Value Range Interpretation Code Description Data [facility](s) Supporting Document(s) ID Date Data Source [id number] 11/24/2020 11:26:45 AM EDT [facility] NT INFORMATIONPatient MRN Name Date of Age Gend*PT [id number] Scott Billings 1955 65 years M OPPT Location Admission Date/Time Visit ID Attending Provider --- --- --- Michael Warren MD([id number]) EPI ID CSN Admitting Provider [id number] ---OUTPATIENT / OBSERVATIONAL SURGICAL OR INVASIVE PROCEDUREName: Scott Billings : 1955 Sex: male Care Provider: Lakeshia GARDNERending Physician: Dr. Warren.HISTORY OF PRESENT ILLNESS: 65 years old male with a longstandinghistory of atrial fibrillation who routinely follows with Dr. Chery cardiologyand maintained on Eliquis, beta-ashish and flecainide. Patient tells me heunderwent 3 atrial flutter ablations in the past. His symptoms improved for awhile and then came back. He complains of frequent palpitations, extremefatigue, shortness of breath with mild exertion, lightheadedness, dizziness andsyncopal episode after a coughing spell. Denies any chest pain, chesttightness, or peripheral edema. Subsequently he was referred to Dr. Patiño surgical evaluation. Treatment options have been reviewed and he elected toundergo ABLATION A-FIB ECHO TRANSESOPHAGEAL on 11/29/2020.PAST MEDICAL HISTORY:Past Medical History:Diagnosis Date Asthma Atrial fibrillation Persistent COPD (chronic obstructive pulmonary disease) GERD (gastroesophageal reflux disease) Pneumothorax 11/2013 leftPAST SURGICAL HISTORY:Past Surgical History:Procedure Laterality Date BACK SURGERY COLONOSCOPY EP STUDY N/A 01/16/2019 Procedure: Ablation A-Flutter w2d mapping; Surgeon: Michael Warren MD;Laterality: N/A; EP STUDY N/A 12/04/2019 Procedure: ABLATION A-FLUTTER; Surgeon: Michael Knapp MD; Laterality: N/A;Nonelective, no other mapping needed EP STUDY N/A 2020 Procedure: ABLATION A-FLUTTER; Surgeon: Michael Knapp MD; Laterality: N/A; LUMBAR DISCECTOMYALLERGIES:AllergiesAllergen Reactions Penicillins Other (See Comments) Unknown reaction during childhoodMEDICATIONS:Current Outpatient Medications on File Prior to VisitMedica tion Sig Dispense Refill ADVAIR DISKUS 250-50 MCG/DOSE DISKUS Inhale 1 puff 2 (two) times a day 5 albuterol (PROVENTIL HFA;VENTOLIN HFA) 108 (90 Base) MCG/ACT inhaler Inhale 4puffs every 6 (six) hours as needed for wheezing Apixaban (ELIQUIS) 5 MG TABS tablet Take 1 tablet (5 mg total) by mouth 2(two) times a day 60 tablet 5 bisoprolol (ZEBETA) 5 MG tablet Take 5 mg by mouth daily flecainide (TAMBOCOR) 150 MG tablet Take 150 mg by mouth 2 (two) times a day naproxen sodium (Aleve) 220 MG tablet Take 440 mg by mouth daily as needed forpain omeprazole (PRILOSEC) 20 MG capsule Take 20 mg by mouth daily sildenafil (VIAGRA) 100 MG tablet Take 100 mg by mouth daily as needed forerectile dysfunctionNo current facility-administered medications on file prior to visit.Social HistoryTobacco Use Smoking status: Former Smoker Packs/day: 1.50 Years: 30.00 Pack years: 45.00 Types: Cigarettes Quit date: 2007 Years since quittin.3 Smokeless tobacco: Never UsedSubstance Use Topics Alcohol use: Yes Alcohol/week: 12.0 standard drinks Types: 6 Cans of beer, 6 Shots of liquor per week Comment: 2/week Drug use: Not Currently Types: Marijuana Comment: last used in Family HistoryProblem Relation Age of Onset Heart disease Father Heart disease Sister Colon cancer Mother Malig Hyperthermia Neg HxREVIEW OF SYSTEMS:Respiratory: Reports shortness of breath with mild exertion and occasionalcough. Denies yellow sputum production or wheezing.Cardiovascular: Occasional palpitations. Denies any chest pain, pressure ortightness. Denies any paroxysmal nocturnal dyspnea or orthopnea.GI: Denies nausea, vomiting, diarrhea, constipation or melena.Neurologic: Denies any numbness, tingling, tremors or syncope.Vascular: Denies any edema. Denies claudication.PHYSICAL EXAM:GENERAL: He is a 65 years old, pleasant white male, in no acute distress at timeof examination. Vitals on arrival to the office are BP 123/87 (BP Location:Right upper arm, Patient Position: Sitting) | Pulse 58 | Ht 1.854 m (6' 1") |Wt (!) 107.2 kg (236 lb 6.4 oz) | SpO2 95% | BMI 31.19 kg/m Body mass indexis 31.19 kg/m ..Skin is pink, warm, and dry.NECK: He has a grade 2 airway. Neck is supple, midline, without cervicaladenopathy. No thyromegaly. No carotid bruits.MENTAL / NEUROLOGICAL STATUS: [id number]: Clear to auscultation. No wheezes, rhonchi or crackles.HEART: Rate rhythm regular. S1, S2. No murmur, rub or gallop.ABDOMEN: Bowel sounds positive times four. Soft, non tender. No reboundtenderness. No h epatosplenomegaly. Negative CVAT.EXTREMITIES: Pulses are symmetrical. No edema.Anesthesia complications: deniesHA Frailty Scale :: 4/10 Vulnerable (while not dependent on others for dailyhelp, often symptoms limit activities. A common complaint is being "slowed up",and /or being tired during the day).Stop Bang Questionnaire - Total Score:STOP-Bang Total Score: 5ASSESSMENT: Primary Diagnosis/Indication: Persistent atrial fibrillation.PLAN: Procedure: ABLATION A-FIB ECHO TRANSESOPHAGEAL on 11/29/2020.11/24/2020 11:26 Kishore Tapia, JADONThis document or parts of this document, were dictated using [employer] software. A reasonable attempt at proofreading has beenmade to minimize errors. Please call with any questions or corrections. Name Value Range Interpretation Code Description Data Philomena rce(s) Supporting Document(s) ID Date Data Source [id number] 11/24/2020 11:05:00 AM EDT Health system Name Value Range Interpretation Code Description Data Philomena rce(s) Supporting Document(s) EKG [facility] [id number]l7E4A2aXHhO4SzzYXhq6hyS6CaO3WoBLYhEZAYKW8MhLTx jb2 [file] [id number]+QdL2RKC2mQUiZgg3SpK3FfrzEOKCZy== ID Date Data Source [id number] 11/24/2020 06:11:47 PM EDT [facility] Name Value Range Interpretation Code Description Data Philomena rce(s) Supporting Document(s) SODIUM 138 mmol/L (136-145) [facility] POTASSIUM 4.4 mmol/L (3.6-5.2) [facility] CHLORIDE 101 mmol/L (100-108) [facility] CO2 24 mmol/L (22-31) [facility] ANION GAP 13 mmol/L (7-16) [facility] UREA NITROGEN 14 mg/dL (7-24) [facility] CREATININE 1.08 mg/dL (0.80-1.30) [facility] BUN/CREAT RATIO 13.0 RATIO (10.0-20.0) [facility] GLUCOSE 89 mg/dL (70-99) [facility] CALCIUM 8.9 mg/dL (8.4-10.2) [facility] GFR >60 ml/min/1.73m2 (>59) [facility] GFR ( AMER) >60 ml/min/1.73m2 (>59) [facility] GFR INTERPRETATION [facility] --NORMAL KIDNEY FUNCTION OR MILD DISEASE - GFR >OR= 60CHRONIC KIDNEY DISEASE - GFR 15 - 59RENAL FAILURE - GFR <15 Est. GFR calculation based on the MDRDstudy equation, which assumes a steadystate for creatinine. Est. GFR should notbe used for medication dosing. ID Date Data Source [id number] 11/24/2020 03:54:02 PM EDT [facility] SPEC EXP DATE 11/30/2020ATI ENT ABO/Rh A POSITIVEANTIBODY SCREEN NEGATIVETESTING SITE PERFORMED AT [address] [place] [address] Name Value Range Interpretation Code Description Data Philomena rce(s) Supporting Document(s) TYPE AND SCREEN [facility] ID Date Data Source [id number] 11/24/2020 03:46:54 PM EDT [facility] Name Value Range Interpretation Code Description Data Philomena rce(s) Supporting Document(s) WBC 8.3 10*3/uL (4.1-11.0) [facility] RBC 4.22 10*6/uL (4.60-6.10) L [facility] HGB 14.2 g/dL (13.5-18.0) [facility] HCT 41.6 % (41.0-53.0) [facility] MCV 98.5 fL (80.0-95.0) H [facility] MCH 33.6 pg (27.0-32.0) H [facility] MCHC 34.1 g/dL (32.0-36.0) [facility] RDW 13.2 % (10.5-14.5) [facility] PLT 243 10*3/uL (150-450) [facility] MPV 8.6 fL (7.1-10.7) [facility] ID Date Data Source [id number] 11/24/2020 09:19:00 AM EDT [facility] A NGIO CHESTCLINICAL HISTORY: Preablation study. Persistent atrial fibrillation.COMPARISON: None available.TECHNIQUE: CT angiogram of the chest with intravenous contrast. 70 cc of Isovue 370 contrast was injected from a 100 cc vial. Sagittal and coronal MIP images were obtained and reviewed.FINDINGS: There is no anterior chest wall mass identified. There are no significantly sized axillary lymph nodes noted. The thyroid gland appears unremarkable.The heart is upper limits normal in size. There is no pericardial thickening or effusion. There are mild coronary artery calcifications. The ascending thoracic aorta measures 3.5 cm. The proximal descending thoracic aorta measures 2.6 cm. The distal descending thoracic aorta measures 2.8 cm. There is no evidence of thoracic aortic aneurysm or dissection. There is no significant mediastinal lymphadenopathy noted.Evaluation of the pulmonary arteries demonstrates no evidence of abnormal filling defect/thrombus. There is no evidence of pulmonary embolism.There is no intracardiac filling defect identified. In particular, there is no abnormal filling defect/thrombus noted within the left atrial appendage.Pulmonary veins appear patent with measurements as follows:Right superior pulmonary vein: 1.6 x 1.4 cmRight inferior pulmonary vein: 1.5 x 1.5 cmLeft superior pulmonary vein: 1.3 x 1.6 cmLeft inferior pulmonary vein: 1.1 x 1.3 cmThe central tracheobronchial tree appears patent. There are moderate to severe bilateral emphysematous changes. There is increased reticular density within the peripher y of the right lower lobe which is likely related to scarring. In the left lung base there is a 4 mm pulmonary nodule, axial image number 33. There is no pleural effusion. There is no pneumothorax.Evaluation of the upper abdomen demonstrates fatty infiltration of the visualized liver.There are degenerative changes involving the thoracic spine with mild multilevel degenerative disc disease noted.IMPRESSION: Pulmonary vein measurements as above.No evidence of pulmonary embolism.Moderate to severe bilateral emphysematous changes. Increased reticular density within the periphery of the right lower lobe which is likely related to scarring and or chronic interstitial disease. 4 mm left lower lobe pulmonary nodule. Per Fleischner Society recommendations a follow up CT scan of the chest in 12 months is recommended for re-evaluation.Fatty infiltration of the liver.Dictated by: VALDEMAR WHEATLEY MD on 11/24/2020lectronically Signed by: VALDEMAR WHEATLEY MD on 11/24/2020 09:54 AMTranscribed by: aretha on 11/24/2020 09:54 AMCDS G code: , ,CDS Modifier: , ,cc: Name Value Range Interpretation Code Description Data Philomena rce(s) Supporting Document(s) ID Date Data Source [id number] 11/24/2020 08:30:00 AM EDT [facility] Name Value Range Interpretation Code Description Data Philomena rce(s) Supporting Document(s) SARS coronavirus 2 RNA Not Detected [facility] [place] This lab was ordered by [facility] and reported by [employer]. ID Date Data Source [id number] 11/25/2020 01:08:27 PM EDT [facility] Name Value Range Interpretation Code Description Data Philomena rce(s) Supporting Document(s) SARS-COV-2 DELON Lab [facility] Not DetectedReference range: Not Detecte d This nucleic acid amplification test was developed and its performance characteristics determined by [employer]. Nucleic acid amplification tests include RT-PCR and TMA. This test has not been FDA cleared or approved. This test has been authorized by FDA under an Emergency Use Authorization (EUA). This test is only authorized for the duration of time the declaration that circumstances exist justifying the authorization of the emergency use of in vitro diagnostic tests for detection of SARS-CoV-2 virus and/or diagnosis of COVID-19 infection under section 564(b)(1) of the Act, 21 U.S.C. 360bbb-3(b) (1), unless the authorization is terminated or revoked sooner. When diagnostic testing is negative, the possibility of a false negative result should be considered in the context of a patient's recent exposures and the presence of clinical signs and symptoms consistent with COVID- 19. An individual without symptoms of COVID- 19 and who is not shedding S ARS-CoV-2 virus would expect to have a negative (not detected) result in this assay. Performed At: [address] [place], [place] [id number] Luisa Lopes PhD Ph:[phone] ID Date Data Source [id number] 09/14/2020 11:39:28 AM EST [facility] INFORMATIONPatient MRN Name Date of Age Gend*PT [id number] Scott Billings 1955 65 years M ---PT Location Admission Date/Time Visit ID Attending Provider --- --- --- --- EPI ID CSN Admitting Provider [id number] ---[facility] [address] [facility], [address] (First Floor)[place], [place] [address]Tv.: Fax: Katient: Scott Billings : 1955Date: 09/14/20CARDIOLOGY TELEMEDICINE VISITPatient was identified by name and date of .Verbal consent was obtained from the patient for this telemedicine visit.Patient is aware of the risks, limitations, and benefits of a telemedicinevisit.This telemedicine assessment was conducted remotely with the assistance ofFaves communication technology. Telephone Only Codes [id number]: 21-30 minutesof medical discussion: Telephone Only .Subjective:Scott Billings is 65 years male with atrial flutter and now atrial fibrillationHISTORY OF PRESENT ILLNESS: Patient is a 65-year-old gentleman with a history ofatrial flutter status post isthmus ablation in 2018. Who in November 2019 wasbrought back to the electrophysiology lab because of atrial flutter/questionableatrial fibrillation. Bidirectional block was seen at that time but a secondisthmus line was placed. The patient did well until March 2020 when hepresented again in atrial flutter. This time a very small gap at the eustachianridge was noted and ablation resulted in termination of the atrial flutter.Recently the patient has been complaining of increasing shortness of breath. Hehad an EKG done on August 31 which shows atrial fibrillation. He complains ofsignificant shortness of breath and dyspnea on exertion. He denies any chestpain. He denies any syncope.Past medical history1. History of typical atrial flutter status post ablation December 24. Recurrence of atrial flutter. The patient underwent repeat EP testing hewas in sinus rhythm. There was bidirectional isthmus conduction and heunderwent re- ablation.3. Questionable atrial fibrillation4. COPDFAMILY HISTORY: family history includes Heart disease in his father and sister.SOCIAL HISTORY: reports that he quit smoking about 13 years ago. He has a 45.00pack-year smoking history. He has never used smokeless tobacco. He reports thathe drinks about 12.0 standard drinks of alcohol per week. He reports that he hascurrent or past drug history.REVIEW OF SYSTEMS: Constitutional: Denies syncope. Denies fever, chills, weightloss or gain. Eyes: Denies blindness. Cardiovascular: Denies chest pain.Respiratory: Positive shortness of breath and dyspnea on exertion. GI: Deniesabdominal pain, nausea or vomiting. : Denies dysuria or hematuria.Musculoskeletal: Negative lower extremity edema. Integumentary: Denie s rash.Neurologic: Denies seizures. Psychiatric: Denies depression or anxiety.Hematologic: Denies anemia.Current Outpatient Medications: ADVAIR DISKUS 250-50 MCG/DOSE DISKUS, INHALE ONE PUFF BY MOUTH TWICE A DAY,Disp: , Rfl: 5 Apixaban (ELIQUIS) 5 MG TABS tablet, Take 1 tablet (5 mg total) by mouth 2(two) times a day, Disp: 60 tablet, Rfl: 5 bisoprolol (ZEBETA) 5 MG tablet, , Disp: , Rfl: flecainide (TAMBOCOR) 100 MG tablet, 150 mg 2 (two) times a day , Disp: ,Rfl: omeprazole (PRILOSEC) 20 MG capsule, , Disp: , Rfl: sildenafil (VIAGRA) 100 MG tablet, Take 100 mg by mouth daily as needed forerectile dysfunction, Disp: , Rfl:ALLERGIES: is allergic to penicillins.Objective:PHYSICAL EXAMINATION: Deferred due to Telemedicine encounterSTUDIES REVIEWED: Previous ablation reports. EKG of August 31KG: Deferred due to telemedicine encounter.Assessment/Plan:ASSESSMENT/PLAN: This is a 65 years male With a history of atrial fibrillation.I had a long discussion with the patient regarding the anatomical andphysiological basis of atrial fibrillation, specifically as it relates to thepulmonary veins of the left atrium. We discussed medical management,specifically as it relates to a rhythm versus rate controlling strategy. Wewent over the results of the AFFIRM, RACE, and STAR-AF trials in detail.Medical therapy was also discussed. The suppression rates for 1A, 1C, Class 3antiarrhythmic drugs, beta blockers, calcium channel blockers, and digoxin wasexplained, as well as the risk for ventricular proarrhythmia was explained.A rate controlling strategy was also discussed in detail as it relates topharmacological therapy using digoxin, beta- blockers, and calcium channelblockers. Also an ablate and pace strategy was explained.EP guided therapy targeting AFib triggers was explained in detail. Thetechnique of pulmonary vein isolation with both radiofrequency energy, as wellas cryoablation was discussed. It was explained to the patient that isolat ionof the pulmonary vein was the cornerstone for ablation of atrial fibrillation.In addition, in need for repeat ablation was quoted at up to 30%. It was alsoexplained to the patient that in the 1st 3 months post ablation there would monik improvement as this is considered the blanking period . In addition it maytake up to year for reverse remodeling to be seen and it may take up to yearbefore a 2nd procedure if needed is offered. During the blanking. It wasexplained to the patient that cardioversion may be needed as well as thepossibility that an antiarrhythmic drug would also need to be used. It wasstressed that within the 1st 3 months post ablation, anticoagulation witheitherCoumadin or 1 of the NOAC's was mandatory regardless of the chads 2vascular score. Entrance into the left atrium via transseptal approach wasexplained. The increased risk of a transseptal was also discussed.The risk of the procedure including but not limited to, vascular injury,perforation, tamponade, pneumothorax, atrial esophageal fistula, phrenic nerveinjury, need for emergent open heart surgery, stroke, and were allexplained. The need for preprocedure CTA to assess pulmonary venous anatomy wasdiscussed. In addition it was explained to the patient that on the day of theprocedure transesophageal ECHO was required to rule out left atrial appendagethrombus. Lastly the need for a general anesthetic and its inherent risks wasalso discussed.At this point the patient would like to proceed with ablation. He will bescheduled on an elective basisThis document or parts of this document, were dictated using [employer]. A reasonable attempt at proofreading has been made to minimize errors.Please call with any questions or corrections.I have spent 25 minutes with the patient, counseling/coordinating the patient'scare. I discussed the diagnosis of atrial fibrillation and discussed Managementoption risks and benefitsFollow Up cryoablationSignature: Michael Warren MD, [facility], RSCardiac Electrophysiology and Arrhythmia ServiceDate: September 14, 2020Time: 11:35 AMThis document or parts of this document, were dictated using [employer]. A reasonable attempt at proofreading has been made to minimize errors.Please call with any questions or corrections. Name Value Range Interpretation Code Description Data Philomena rce(s) Supporting Document(s) Procedure Social History Code Duration Value Status Description Data Source(s ) Smoking 04/03/2021 12:00:00 AM EDT Patient is a former smoker completed Patient is a former smoker [facility] ([facility], ) Smoking 02/28/2021 12:00:00 AM EDT Patient is a former smoker completed Patient is a former smoker [facility] ([facility]) Alcohol intake 02/28/2021 12:00:00 AM EDT Current drinker of al cohol (finding) completed Current drinker of alcohol (finding) [facility] Smoking 01/31/2021 12:00:00 AM EDT Former Smoker completed Former Smoker eCW1 ([facility]) Smoking 01/31/2021 12:00:00 AM EDT Former Smoker completed Former Smoker eCW1 ([facility]) Alcohol intake 12/13/2020 12:00:00 AM EDT Current drinker of al cohol (finding) completed Current drinker of alcohol (finding) [facility] Alcohol intake 11/29/2020 12:00:00 AM EDT Current drinker of al cohol (finding) completed Current drinker of alcohol (finding) [facility] Alcohol intake 11/24/2020 12:00:00 AM EDT Current drinker of al cohol (finding) completed Current drinker of alcohol (finding) [facility] Alcohol intake 09/13/2020 12:00:00 AM EST Yes completed Health system Cigarette pack-years 09/13/2020 12:00:00 AM EST UNK completed Health system Cigarettes smoked current (pack per day) - Reported 09/13/19 12:00:00 AM EST UNK completed [facility] Smoking 09/13/2020 12:00:00 AM EST Former smoker completed Former smoker Health system Vital Signs ID Date Data Source UNK Name Value Range Interpretation Code Description Data Source(s) Systolic blood pressure 112 mm[Hg] 112 mm[Hg] M PRERNA ([facility], ) Body height 71.5 [in_i] 71.5 [in_i] [facility] ([facility]) 5'11.50" Diastolic blood pressure 80 mm[Hg] 80 mm[Hg] [facility] ([facility]) Body weight 109.318 kg 109.318 kg [facility] ([facility]) Body surface area Derived from formula 2.29 m2 2.29 m2 [facility] ([facility]) Body weight 241.00 [lb_av] 241.00 [lb_av] [facility] Oxygen saturation in Arterial blood by Pulse oximetry 96 % 96 % [facility] ([facility]) Room Air Body mass index (BMI) [Ratio] 33.1 kg/m2 33.1 k g/m2 [facility]) [place] body weight 172 [lb_av] 172 [lb_av] MED[facility] T ([facility]) Heart rate 68 /min 68 /min [facility] ([facility]) Body weight 233.00 [lb_av] 233.00 [lb_av] MED[facility] T ([facility]) Body height 72 [in_i] 72 [in_i] [facility]) 6'0" Body mass index (BMI) [Ratio] 31.6 kg/m2 31.6 k g/m2 [facility] Heart rate 75 /min 75 /min [facility]) Systolic blood pressure--sitting 118 mm[Hg] 118 mm[Hg] [facility] ([facility]) Ra, large cuff Diastolic blood pressure--sitting 76 mm[Hg] 76 mm[Hg] [facility] ([facility]) Ra, large cuff Body height 71.5 [in_i] 71.5 [in_i] [facility] ([facility]) 5'11.50" [place] body weight 172 [lb_av] 172 [lb_av] MED[facility] T ([facility]) Body surface area Derived from formula 2.26 m2 2.26 m2 [facility] ([facility]) Body mass index (BMI) [Ratio] 32.1 kg/m2 32.1 k g/m2 [facility] ([facility]) Heart rate 83 /min 83 /min [facility] ([facility]) Systolic blood pressure 126 mm[Hg] 126 mm[Hg] [facility] Diastolic blood pressure 72 mm[Hg] 72 mm[Hg] [facility] ([facility]) Oxygen saturation in Arterial blood by Pulse oximetry 96 % 96 % [facility] ([facility]) Body weight 233.50 [lb_av] 233.50 [lb_av] [facility] T ([facility]) Body weight 105.916 kg 105.916 kg [facility] ([facility]) Body weight 236 [lb_av] 236 [lb_av] eCW1 ([facility]) Body height [in_i] eCW1 ([facility]) Body mass index (BMI) [Ratio] 32.45 kg/m2 32.45 kg/m2 eCW1 ([facility]) Heart rate 67 /min 67 /min eCW1 ([facility]) Respiratory rate 18 /min 18 /min eCW1 ([facility]) Body temperature 97.3 [degF] 97.3 [degF] eCW1 ( [facility]) Systolic blood pressure 118 mm[Hg] 118 mm[Hg] e CW1 ([facility]) Diastolic blood pressure 76 mm[Hg] 76 mm[Hg] eCW1 ([facility]) Systolic blood pressure 112 mm[Hg] 112 mm[Hg] [facility] Diastolic blood pressure 70 mm[Hg] 70 mm[Hg] Health system Heart rate 73 /min 73 /min [facility] Body temperature 36.22 Erica 36.22 Erica [facility] Respiratory rate 20 /min 20 /min [facility] Body height 185.4 cm 185.4 cm Health system Body weight 105.235 kg 105.235 kg Health system Body mass index (BMI) [Ratio] 30.62 kg/m2 30.62 kg/m2 Health system Oxygen saturation in Arterial blood by Pulse oximetry 94 % 94 % Health system Systolic blood pressure 120 mm[Hg] 120 mm[Hg] [facility] Diastolic blood pressure 78 mm[Hg] 78 mm[Hg] Health system Heart rate 75 /min 75 /min [facility] Oxygen saturation in Arterial blood by Pulse oximetry 97 % 97 % Health system Respiratory rate 15 /min 15 /min [facility] Body temperature 36.67 Erica 36.67 Erica [facility] Systolic blood pressure 123 mm[Hg] 123 mm[Hg] [facility] Diastolic blood pressure 87 mm[Hg] 87 mm[Hg] Health system Heart rate 58 /min 58 /min [facility] Body height 185.4 cm 185.4 cm Health system Body weight 107.23 kg 107.23 kg Health system Body mass index (BMI) [Ratio] 31.19 kg/m2 31.19 kg/m2 Health system Oxygen saturation in Arterial blood by Pulse oximetry 95 % 95 % Health system Body weight 232.00 [lb_av] 232.00 [lb_av] [facility] T ([facility]) Body height 72 [in_i] 72 [in_i] [facility] ([facility]) 6'0" Body mass index (BMI) [Ratio] 31.5 kg/m2 31.5 k g/m2 [facility] ([facility]) Heart rate 95 /min 95 /min [facility] ([facility]) Systolic blood pressure 120 mm[Hg] 120 mm[Hg] M EDENT ([facility], ) Diastolic blood pressure 80 mm[Hg] 80 mm[Hg] [facility] ([facility]) Heart rate 88 /min 88 /min [facility] ([facility]) Oxygen saturation in Arterial blood by Pulse oximetry 97 % 97 % [facility] ([facility]) Body temperature 95.9 [degF] 95.9 [degF] [facility] ([facility]) Body height 71.5 [in_i] 71.5 [in_i] [facility] ([facility]) 5'11.50" Body weight 232.00 [lb_av] 232.00 [lb_av] [facility] T ([facility]) Body mass index (BMI) [Ratio] 31.9 kg/m2 31.9 k g/m2 [facility] ([facility]) [place] body weight 172 [lb_av] 172 [lb_av] [facility] T ([facility]) Body weight 105.235 kg 105.235 kg [facility] ([facility]) Body surface area Derived from formula 2.26 m2 2.26 m2 [facility] ([facility]) Body mass index (BMI) [Ratio] 30.5 kg/m2 30.5 k g/m2 [facility] ([facility]) Body weight 225.00 [lb_av] 225.00 [lb_av] [facility] T ([facility]) Body height 72 [in_i] 72 [in_i] [facility] ([facility]) 6'0" Heart rate 94 /min 94 /min [facility] ([facility]) Systolic blood pressure--sitting 112 mm[Hg] 112 mm[Hg] [facility] ([facility]) large cuff, Ra Diastolic blood pressure--sitting 72 mm[Hg] 72 mm[Hg] [facility] ([facility]) large cuff, Ra Body weight 226.00 [lb_av] 226.00 [lb_av] [facility] T ([facility]) Body height 72 [in_i] 72 [in_i] [facility] ([facility]) 6'0" Body mass index (BMI) [Ratio] 30.6 kg/m2 30.6 k g/m2 [facility] ([facility]) Heart rate 94 /min 94 /min [facility] ([facility]) Diastolic blood pressure--sitting 70 mm[Hg] 70 mm[Hg] [facility] ([facility]) large cuff, Ra Systolic blood pressure--sitting 110 mm[Hg] 110 mm[Hg] [facility] ([facility]) large cuff, Ra Patient Treatment Plan of Care Planned Activity Planned Date Details Description Data Source (s) normal saline flush 0.9 % injection 3 mL 11/29/2020 02:00:00 PM EDT Health system ondansetron (ZOFRAN) injection 4 mg 11/29/2020 10:41:58 AM EDT Health system Albuterol 0.833 MG/ML / Ipratropium [place] 0.167 MG/M L Inhalant Solution 11/29/2020 10:41:58 AM EDT Health system fentaNYL Citrate (PF) (SUBLIMAZE) injection 25 mcg 11/29/2020 10 :41:58 AM EDT Health system HYDROmorphone (DILAUDID) injection 0.2 mg 11/29/2020 10:41:58 AM ED T Health system 10 ML Atropine Sulfate 0.1 MG/ML Prefilled Syringe 11/29/2020 10 :41:57 AM EDT Health system
[2021-06-17 08:59] VITALS: BP 129/85
[2021-06-17] MEDS ORDERED: ACETAMINOPHEN 500 MG TAB PO ONE (09:05)
== END 2021-06-17 09:51 | disposition home or self-care (01) ==
LOC: M ED 07:02 → EDBD 07:02 → M ED 09:51
DX: J44.9 Chronic obstructive pulmonary disease, unspecified (principal); U07.1 COVID-19; I10 Essential (primary) hypertension; I48.91 Unspecified atrial fibrillation; K21.9 Gastro-esophageal reflux disease without esophagitis; Z79.899 Other long term (current) drug therapy; Z79.01 Long term (current) use of anticoagulants; Z88.0 Allergy status to penicillin; Z87.891 Personal history of nicotine dependence

== ENCOUNTER 2021-06-19 08:00 | Outpatient (CLI) | payer BC, OTHER ==
[~2021-06-19] VITALS: Ht 182.9 cm; Wt 106.0 kg
[~2021-06-19 08:00] MED LIST changes: +BISO5TAB14; +ELIQ5TAB; +FLEC150T; +FLUT1BLS8
[2021-06-19 09:55] VITALS: BP 132/77
[2021-06-19] MEDS ORDERED: NS 1,000 ML IV SCH (09:55)
[2021-06-19] MEDS ORDERED: diphenhydrAMINE 50MG/ML VIAL (J1200) IV PRN (09:55)
[2021-06-19] MEDS ORDERED: CASIRIVIMAB (REGN10933) 600 MG, IMDEVIMAB (REGN10987) 600 MG in NS 250 ML IV ONE (09:55)
[2021-06-19] MEDS ORDERED: EPINEPHrine INJ 1 MG/ML 1ML AMP IM PRN (09:55)
[2021-06-19] MEDS ORDERED: ALBUTEROL SULFATE 2.5 MG/0.5 ML INH NEB SOLN INH PRN (09:55)
[2021-06-19] MEDS ORDERED: methylPREDNISolone 125MG 2ML VIAL IV PRN (09:55)
[2021-06-19] MEDS ORDERED: ACETAMINOPHEN TAB 650MG DOSE (2X325MG) PO PRN (09:55)
[2021-06-19] MEDS ORDERED: ALBUTEROL 90 MCG/ACT 8GM HFA INHALER INH PRN (09:55)
[2021-06-19 10:25] VITALS: BP 113/74
[2021-06-19 10:55] VITALS: BP 126/78
[2021-06-19 11:55] VITALS: BP 132/77
== END 2021-06-19 11:55 | disposition home or self-care (01) ==
LOC: M OPCLI4PR 08:00
PROVIDERS: ATTEND Internal Medicine
DX: U07.1 COVID-19 (principal); Z88.0 Allergy status to penicillin

== ENCOUNTER → 2021-08-02 | Outpatient (REF) | payer OTHER ==
[2021-08-02 12:52] LABS: BASO # 0.1 10^3/uL (0.0-0.2); BASO % 0.7 % (0.0-1.0); EOS # 0.2 10^3/uL (0.0-0.5); EOS % 1.8 % (0.0-3.0); HEMATOCRIT 47.2 % (42.0-52.0); HEMOGLOBIN 15.5 g/dl (13.5-17.5); LYMPH # 1.3 10^3/uL (1.5-5.0); LYMPH % 15.2 % (24.0-44.0); MEAN CORPUSCULAR HGB CONC 32.8 g/dl (32.0-36.5); MEAN CORPUSCULAR VOLUME 100.4 fl (80.0-96.0); MONO # 0.7 10^3/uL (0.0-0.8); MONO % 8.6 % (2.0-8.0); NEUTROPHILS # 6.2 10^3/uL (1.5-8.5); NEUTROPHILS % 73.3 % (36.0-66.0); PLATELET COUNT, AUTOMATED 341 10^3/uL (150-450); WHITE BLOOD COUNT 8.5 10^3/uL (4.0-10.0)
[2021-08-02 13:22] LABS: ALBUMIN 3.3 GM/DL (3.2-5.2); ALT/SGPT 20 U/L (12-78); BILIRUBIN,TOTAL 0.5 MG/DL (0.2-1.0); BLOOD UREA NITROGEN 13 MG/DL (7-18); CALCIUM LEVEL 9.3 MG/DL (8.8-10.2); CARBON DIOXIDE LEVEL 30 MEQ/L (21-32); CHLORIDE LEVEL 105 MEQ/L (98-107); CREATININE FOR GFR 1.18 MG/DL (0.70-1.30); FREE T4 1.05 NG/DL (0.76-1.46); GLOMERULAR FILTRATION RATE > 60.0 (>49); GLUCOSE, FASTING 115 MG/DL (70-100); MAGNESIUM LEVEL 2.1 MG/DL (1.8-2.4); POTASSIUM SERUM 4.4 MEQ/L (3.5-5.1); SODIUM LEVEL 140 MEQ/L (136-145)
== END ==
LOC: M SFHCADAM 10:54
PROVIDERS: ATTEND Family Medicine
DX: I48.0 Paroxysmal atrial fibrillation (principal)

== ENCOUNTER → 2021-08-29 | Outpatient (CLI) | payer BC, OTHER | LOC: M RAD 13:48 | PROVIDERS: ATTEND Internal Medicine Pulmonary Disease | DX: Z87.891 Personal history of nicotine dependence (principal); R91.8 Other nonspecific abnormal finding of lung field ==

== ENCOUNTER 2021-09-14 16:33 | Emergency (ER) | payer BC, OTHER ==
[~2021-09-14] VITALS: Ht 182.9 cm; Wt 1.1 kg
[2021-09-14] MEDS ORDERED: XARE20TA (16:43)
[2021-09-14 17:49] LABS: BASO # 0.1 10^3/uL (0.0-0.2); BASO % 0.5 % (0.0-1.0); EOS # 0.1 10^3/uL (0.0-0.5); EOS % 0.9 % (0.0-3.0); HEMOGLOBIN 13.9 g/dl (13.5-17.5); LYMPH # 1.5 10^3/uL (1.5-5.0); LYMPH % 14.7 % (24.0-44.0); MEAN CORPUSCULAR HGB CONC 33.1 g/dl (32.0-36.5); MEAN CORPUSCULAR VOLUME 99.8 fl (80.0-96.0); MONO # 0.7 10^3/uL (0.0-0.8); MONO % 7.4 % (2.0-8.0); NEUTROPHILS # 7.6 10^3/uL (1.5-8.5); NEUTROPHILS % 76.1 % (36.0-66.0); PLATELET COUNT, AUTOMATED 255 10^3/uL (150-450); RED BLOOD COUNT 4.21 10^6/uL (4.30-6.10); WHITE BLOOD COUNT 9.9 10^3/uL (4.0-10.0)
[2021-09-14] MEDS ORDERED: ISOVUE-370 76% 100ML VIAL As Ordered ONE (17:55)
[2021-09-14 18:20] LABS: ALBUMIN 3.3 GM/DL (3.2-5.2); ALT/SGPT 24 U/L (12-78); BILIRUBIN,DIRECT < 0.1 MG/DL (0.0-0.2); BILIRUBIN,TOTAL 0.2 MG/DL (0.2-1.0); C REACTIVE PROTEIN QUANTITATIV 0.41 MG/DL (0.00-0.30); TOTAL PROTEIN 7.3 GM/DL (6.4-8.2)
[2021-09-14 20:18] VITALS: BP 155/79
== END 2021-09-14 20:29 | disposition home or self-care (01) ==
LOC: M ED 16:33
DX: R79.1 Abnormal coagulation profile (principal); R06.02 Shortness of breath; R91.1 Solitary pulmonary nodule; I10 Essential (primary) hypertension; J44.9 Chronic obstructive pulmonary disease, unspecified; I48.91 Unspecified atrial fibrillation; K21.9 Gastro-esophageal reflux disease without esophagitis; M54.9 Dorsalgia, unspecified; Z88.0 Allergy status to penicillin; Z79.899 Other long term (current) drug therapy; Z79.01 Long term (current) use of anticoagulants; Z87.891 Personal history of nicotine dependence
CPT/HCPCS: 36415; 71275; 80047; 80076; 85025; 86140; 99284; Q9967

== ENCOUNTER → 2021-10-03 | Outpatient (CLI) | payer BC, OTHER ==
[~2021-10-03] MED LIST changes: +XARE20TA
== END ==
LOC: M PLAIMG 09:56
PROVIDERS: ATTEND Internal Medicine Pulmonary Disease
DX: J43.9 Emphysema, unspecified (principal); R91.8 Other nonspecific abnormal finding of lung field

== ENCOUNTER → 2021-10-12 | Outpatient (CLI) | payer BC, OTHER | LOC: M SLEEP HO 10:11 | PROVIDERS: ATTEND Physician Assistant | DX: G47.9 Sleep disorder, unspecified (principal) ==

== ENCOUNTER → 2022-03-28 | Outpatient (REF) | payer MEDICARE, OTHER ==
[2022-03-28 13:37] LABS: HEMATOCRIT 46.6 % (42.0-52.0); HEMOGLOBIN 15.3 g/dl (13.5-17.5); MEAN CORPUSCULAR HEMOGLOBIN 32.9 pg (27.0-33.0); MEAN CORPUSCULAR HGB CONC 32.8 g/dl (32.0-36.5); MEAN CORPUSCULAR VOLUME 100.2 fl (80.0-96.0); PLATELET COUNT, AUTOMATED 288 10^3/uL (150-450); RED BLOOD COUNT 4.65 10^6/uL (4.30-6.10); WHITE BLOOD COUNT 6.7 10^3/uL (4.0-10.0)
[2022-03-28 14:10] LABS: ALBUMIN 3.3 GM/DL (3.2-5.2); ALT/SGPT 22 U/L (12-78); BILIRUBIN,TOTAL 0.4 MG/DL (0.2-1.0); BLOOD UREA NITROGEN 12 MG/DL (7-18); CALCIUM LEVEL 9.2 MG/DL (8.8-10.2); CARBON DIOXIDE LEVEL 32 MEQ/L (21-32); CHLORIDE LEVEL 104 MEQ/L (98-107); CHOLESTEROL LEVEL 191 MG/DL (<200); CHOLESTEROL RISK RATIO 3.897 (<5); CREATININE FOR GFR 1.23 MG/DL (0.70-1.30); FREE T4 1.06 NG/DL (0.76-1.46); GLOMERULAR FILTRATION RATE > 60.0 (>49); GLUCOSE, FASTING 107 MG/DL (70-100); HDL CHOLESTEROL 49 MG/DL (>40); LDL CHOLESTEROL 122 MG/DL (<100); NON-HDL-C 142 MG/DL; POTASSIUM SERUM 4.2 MEQ/L (3.5-5.1); SODIUM LEVEL 139 MEQ/L (136-145); TOTAL PROTEIN 7.3 GM/DL (6.4-8.2); TRIGLYCERIDES LEVEL 100 MG/DL (<150)
[2022-03-28 14:37] LABS: VITAMIN B12 LEVEL 569 PG/ML (247-911)
[2022-03-28 15:02] LABS: HEMOGLOBIN A1c 5.6 %
[2022-03-30 14:04] LABS: FOLATE 7.5 NG/ML (>3.0)
== END ==
LOC: M SFHCADAM 07:08
PROVIDERS: ATTEND Family Medicine
DX: G93.3 Postviral and related fatigue syndromes (principal); E78.5 Hyperlipidemia, unspecified; I11.9 Hypertensive heart disease without heart failure; I48.0 Paroxysmal atrial fibrillation; Z79.899 Other long term (current) drug therapy

== ENCOUNTER → 2022-04-06 | Outpatient (CLI) | payer MEDICARE, BC, OTHER ==
[~2022-04-06] MED LIST changes: +ALBU8.5H
== END ==
LOC: M RAD 07:35
PROVIDERS: ATTEND Family Medicine
DX: S06.0X0A Concussion without loss of consciousness, initial encounter (principal); Z13.6 Encounter for screening for cardiovascular disorders

== ENCOUNTER → 2022-04-06 | Outpatient (CLI) | payer MEDICARE, BC, OTHER ==
[~2022-04-06] MED LIST changes: -ALBU8.5H
== END ==
LOC: M RAD 07:38
PROVIDERS: ATTEND Internal Medicine Pulmonary Disease
DX: R91.8 Other nonspecific abnormal finding of lung field (principal)

== ENCOUNTER 2022-05-19 02:21 | Emergency (ER) | payer MEDICARE, BC, OTHER ==
[~2022-05-19] VITALS: Ht 182.9 cm; Wt 108.2 kg
[2022-05-19] MEDS ORDERED: ALBU8.5H (02:38)
[2022-05-19 03:00] LABS: BASO % 0.3 % (0.0-1.0); EOS % 0.3 % (0.0-3.0); HEMATOCRIT 43.8 % (42.0-52.0); HEMOGLOBIN 14.5 g/dl (13.5-17.5); LYMPH # 1.2 10^3/uL (1.5-5.0); LYMPH % 8.5 % (24.0-44.0); MEAN CORPUSCULAR HEMOGLOBIN 32.7 pg (27.0-33.0); MEAN CORPUSCULAR HGB CONC 33.1 g/dl (32.0-36.5); MEAN CORPUSCULAR VOLUME 98.6 fl (80.0-96.0); MONO # 1.3 10^3/uL (0.0-0.8); MONO % 8.9 % (2.0-8.0); NEUTROPHILS # 11.8 10^3/uL (1.5-8.5); NEUTROPHILS % 81.6 % (36.0-66.0); PLATELET COUNT, AUTOMATED 313 10^3/uL (150-450); RED BLOOD COUNT 4.44 10^6/uL (4.30-6.10); WHITE BLOOD COUNT 14.4 10^3/uL (4.0-10.0)
[2022-05-19 03:31] LABS: RSV AMPLIFICATION NEGATIVE (NEGATIVE)
[2022-05-19 03:34] LABS: ALBUMIN 3.7 GM/DL (3.2-5.2); ALT/SGPT 24 U/L (12-78); BILIRUBIN,DIRECT 0.1 MG/DL (0.0-0.2); BILIRUBIN,TOTAL 0.5 MG/DL (0.2-1.0); BLOOD UREA NITROGEN 12 MG/DL (7-18); CALCIUM LEVEL 9.4 MG/DL (8.8-10.2); CARBON DIOXIDE LEVEL 29 MEQ/L (21-32); CHLORIDE LEVEL 104 MEQ/L (98-107); CREATININE FOR GFR 1.06 MG/DL (0.70-1.30); GLOMERULAR FILTRATION RATE > 60.0 (>49); GLUCOSE, FASTING 119 MG/DL (70-100); LIPASE 91 U/L (73-393); NT-PRO BNP 391 PG/ML (<125); POTASSIUM SERUM 3.7 MEQ/L (3.5-5.1); SODIUM LEVEL 138 MEQ/L (136-145); TOTAL PROTEIN 8.5 GM/DL (6.4-8.2)
[2022-05-19 03:35] LABS: INR 1.42; PROTHROMBIN TIME 17.6 SECONDS (12.5-14.5)
[2022-05-19 03:40] LABS: CK-MB VALUE MASS < 1.0 NG/ML (<3.6); CPK CREATINE PHOSPHOKINASE 78 U/L (39-308); MB/CK RELATIVE INDEX 1.28 (< OR =4)
[2022-05-19] MEDS ORDERED: ISOVUE-370 76% 100ML VIAL As Ordered ONE ×2 (03:49→04:11)
[2022-05-19 04:16] LABS: CK-MB VALUE MASS < 1.0 NG/ML (<3.6); CPK CREATINE PHOSPHOKINASE 48 U/L (39-308); MB/CK RELATIVE INDEX 2.08 (< OR =4)
[2022-05-19 05:30] VITALS: BP 173/94
== END 2022-05-19 05:50 | disposition home or self-care (01) ==
LOC: M ED 02:21
DX: R07.89 Other chest pain (principal); I48.91 Unspecified atrial fibrillation; I51.7 Cardiomegaly; I25.10 Atherosclerotic heart disease of native coronary artery without angina pectoris; J43.9 Emphysema, unspecified; K21.9 Gastro-esophageal reflux disease without esophagitis; Z87.891 Personal history of nicotine dependence; Z88.0 Allergy status to penicillin; Z79.51 Long term (current) use of inhaled steroids; Z79.899 Other long term (current) drug therapy
CPT/HCPCS: 36415; 71045; 71275; 80048; 80076; 82550; 82553; 83690; 83880; 84484; 85025; 85610; 87631; 93005; 93041; 94760; 99291; Q9967

== ENCOUNTER → 2022-09-20 | Outpatient (REF) | payer MEDICARE, OTHER ==
[~2022-09-20] MED LIST changes: +ALBU8.5H
[2022-09-20 14:18] LABS: HEMATOCRIT 44.5 % (42.0-52.0); HEMOGLOBIN 14.5 g/dl (13.5-17.5); MEAN CORPUSCULAR HEMOGLOBIN 32.2 pg (27.0-33.0); MEAN CORPUSCULAR HGB CONC 32.6 g/dl (32.0-36.5); MEAN CORPUSCULAR VOLUME 98.7 fl (80.0-96.0); PLATELET COUNT, AUTOMATED 302 10^3/uL (150-450); RED BLOOD COUNT 4.51 10^6/uL (4.30-6.10); WHITE BLOOD COUNT 7.9 10^3/uL (4.0-10.0)
[2022-09-20 14:32] LABS: HEMOGLOBIN A1c 5.6 % (4.0-6.0)
[2022-09-20 14:43] LABS: ALBUMIN 3.4 G/DL (3.2-5.2); ALKALINE PHOSPHATASE 76 U/L (46-116); ALT/SGPT 17 U/L (7.0-40); AST/SGOT 12 U/L (<34); BILIRUBIN,TOTAL 0.4 MG/DL (0.3-1.2); BLOOD UREA NITROGEN 18 MG/DL (9-23); CALCIUM LEVEL 9.1 MG/DL (8.3-10.6); CARBON DIOXIDE LEVEL 33 MMOL/L (20-31); CHLORIDE LEVEL 104 MMOL/L (98-107); CHOLESTEROL LEVEL 191 MG/DL (<200); CHOLESTEROL RISK RATIO 3.97 (<5); CREATININE FOR GFR 1.24 MG/DL (0.70-1.30); GLOMERULAR FILTRATION RATE > 60.0 (>49); GLUCOSE, FASTING 93 MG/DL (74-106); HDL CHOLESTEROL 48.1 MG/DL (>40); LDL CHOLESTEROL 126.9 MG/DL (<100); NON-HDL-C 143 MG/DL; POTASSIUM SERUM 4.8 MMOL/L (3.5-5.1); SODIUM LEVEL 140 MMOL/L (136-145); THYROID STIMULATING HORMONE 1.726 uIU/ML (0.55-4.78); TOTAL PROTEIN 7.3 G/DL (5.7-8.2); TRIGLYCERIDES LEVEL 80 MG/DL (<150)
[2022-09-20 14:44] LABS: FREE T4 0.96 NG/DL (0.89-1.76)
== END ==
LOC: M SFHCADAM 09:12
PROVIDERS: ATTEND Family Medicine
DX: I11.9 Hypertensive heart disease without heart failure (principal); E78.5 Hyperlipidemia, unspecified; I48.0 Paroxysmal atrial fibrillation; Z12.5 Encounter for screening for malignant neoplasm of prostate; Z13.1 Encounter for screening for diabetes mellitus; Z79.899 Other long term (current) drug therapy

== ENCOUNTER → 2022-10-11 | Outpatient (CLI) | payer MEDICARE, BC, OTHER | LOC: M SLEEP 20:00 | PROVIDERS: ATTEND Internal Medicine Pulmonary Disease | DX: G47.33 Obstructive sleep apnea (adult) (pediatric) (principal) ==

== ENCOUNTER 2023-02-09 22:19 | Emergency (ER) | payer OTHER, BC, MEDICARE ==
[~2023-02-09] VITALS: Ht 182.9 cm; Wt 106.8 kg
[2023-02-09] MEDS ORDERED: LIDOCAINE W/EPINEPHRINE 1% 20ML VIAL SC ONE (22:55)
[2023-02-09] MEDS ORDERED: NS 1,000 ML IV ONE (23:35)
[2023-02-09] MEDS ORDERED: BOOSTRIX VACCINE (TETANUS/DIPHTH/ACEL. PERTUSSIS) 0.5ML SYR IM.IMMUN ONE (23:35)
[2023-02-09] MEDS ORDERED: METOPROLOL TART 25 MG TABLET PO ONE (23:35)
[2023-02-09 23:40] VITALS: BP 138/96
[2023-02-10 00:08] LABS: BASO # 0.1 10^3/uL (0.0-0.2); BASO % 0.7 % (0.0-1.0); EOS # 0.1 10^3/uL (0.0-0.5); EOS % 2.1 % (0.0-3.0); HEMATOCRIT 39.5 % (42.0-52.0); HEMOGLOBIN 13.3 g/dl (13.5-17.5); LYMPH # 1.9 10^3/uL (1.5-5.0); LYMPH % 27.9 % (24.0-44.0); MEAN CORPUSCULAR HEMOGLOBIN 32.8 pg (27.0-33.0); MEAN CORPUSCULAR HGB CONC 33.7 g/dl (32.0-36.5); MEAN CORPUSCULAR VOLUME 97.5 fl (80.0-96.0); MONO # 0.7 10^3/uL (0.0-0.8); MONO % 10.9 % (2.0-8.0); NEUTROPHILS # 3.9 10^3/uL (1.5-8.5); NEUTROPHILS % 57.2 % (36.0-66.0); PLATELET COUNT, AUTOMATED 269 10^3/uL (150-450); RED BLOOD COUNT 4.05 10^6/uL (4.30-6.10); WHITE BLOOD COUNT 6.8 10^3/uL (4.0-10.0)
[2023-02-10 00:20] LABS: BLOOD UREA NITROGEN 12 MG/DL (9-23); CALCIUM LEVEL 8.6 MG/DL (8.3-10.6); CARBON DIOXIDE LEVEL 26 MMOL/L (20-31); CHLORIDE LEVEL 104 MMOL/L (98-107); CREATININE FOR GFR 1.15 MG/DL (0.70-1.30); GLOMERULAR FILTRATION RATE > 60.0 (>49); GLUCOSE, FASTING 98 MG/DL (74-106); MAGNESIUM LEVEL 1.6 MG/DL (1.8-2.4); POTASSIUM SERUM 4.1 MMOL/L (3.5-5.1); SODIUM LEVEL 141 MMOL/L (136-145)
[2023-02-10] MEDS ORDERED: MAGNESIUM OXIDE 400MG TAB (MAG-OX) PO ONE (00:25)
[2023-02-10] MEDS: METOPROLOL 5 MG/5 ML VIAL IV SCH ×3 (01:19→01:48)
[2023-02-10] MEDS ORDERED: bisoproloL fumarate 10 MG TAB PO ONE (01:55)
[2023-02-10] MEDS ORDERED: DIGOXIN INJ 0.5 MG/2 ML AMP IV ONE (02:00)
[2023-02-10 03:00] VITALS: BP 124/94
[2023-02-10] MEDS ORDERED: BISO10TA14 PO (03:46)
[2023-02-10 03:51] VITALS: TEMP 98.4; O2SAT 96
== END 2023-02-10 04:09 | disposition home or self-care (01) ==
LOC: M ED 22:19
DX: S09.90XA Unspecified injury of head, initial encounter (principal); S01.01XA Laceration without foreign body of scalp, initial encounter; V49.40XA Driver injured in collision with unspecified motor vehicles in traffic accident, initial encounter; Y92.410 Unspecified street and highway as the place of occurrence of the external cause; I48.91 Unspecified atrial fibrillation; I11.9 Hypertensive heart disease without heart failure; K21.9 Gastro-esophageal reflux disease without esophagitis; J44.9 Chronic obstructive pulmonary disease, unspecified; G47.33 Obstructive sleep apnea (adult) (pediatric); Z79.01 Long term (current) use of anticoagulants; Z79.899 Other long term (current) drug therapy; Z88.0 Allergy status to penicillin; Z79.51 Long term (current) use of inhaled steroids
CPT/HCPCS: 70450; 70486; 72125; 80048; 83735; 85025; 90715; 96365; 96375; 99284; J1160

== ENCOUNTER → 2023-03-05 | Outpatient (REF) | payer MEDICARE, BC, OTHER ==
[~2023-03-05] MED LIST changes: +BISO10TA14 PO
== END ==
LOC: M LABDRWAD 12:33
PROVIDERS: ATTEND Internal Medicine Cardiovascular Disease
DX: R06.02 Shortness of breath (principal)

== ENCOUNTER → 2023-05-27 | Outpatient (CLI) | payer MEDICARE, BC, OTHER | LOC: M RAD 13:11 | PROVIDERS: ATTEND Internal Medicine Pulmonary Disease | DX: Z12.2 Encounter for screening for malignant neoplasm of respiratory organs (principal); Z87.891 Personal history of nicotine dependence ==

== ENCOUNTER → 2023-07-11 | Outpatient (REF) | payer MEDICARE, BC, OTHER ==
[2023-07-11 15:01] LABS: HEMATOCRIT 44.1 % (42.0-52.0); HEMOGLOBIN 14.3 g/dl (13.5-17.5); MEAN CORPUSCULAR HEMOGLOBIN 32.4 pg (27.0-33.0); MEAN CORPUSCULAR HGB CONC 32.4 g/dl (32.0-36.5); PLATELET COUNT, AUTOMATED 329 10^3/uL (150-450); RED BLOOD COUNT 4.41 10^6/uL (4.30-6.10); WHITE BLOOD COUNT 7.5 10^3/uL (4.0-10.0)
[2023-07-11 15:33] LABS: ALBUMIN 3.5 G/DL (3.2-5.2); ALKALINE PHOSPHATASE 60 U/L (46-116); ALT/SGPT 21 U/L (7.0-40); AST/SGOT 13 U/L (<34); BILIRUBIN,TOTAL 0.4 MG/DL (0.3-1.2); BLOOD UREA NITROGEN 11 MG/DL (9-23); CALCIUM LEVEL 9.6 MG/DL (8.3-10.6); CARBON DIOXIDE LEVEL 28 MMOL/L (20-31); CHLORIDE LEVEL 109 MMOL/L (98-107); CREATININE FOR GFR 1.02 MG/DL (0.70-1.30); GLOMERULAR FILTRATION RATE > 60.0 (>49); GLUCOSE, FASTING 105 MG/DL (74-106); POTASSIUM SERUM 4.3 MMOL/L (3.5-5.1); SODIUM LEVEL 140 MMOL/L (136-145); TOTAL PROTEIN 7.4 G/DL (5.7-8.2)
[2023-07-11 15:35] LABS: FREE T4 1.15 NG/DL (0.89-1.76); THYROID STIMULATING HORMONE 2.884 uIU/ML (0.55-4.78)
== END ==
LOC: M SFHCADAM 09:44
PROVIDERS: ATTEND Family Medicine
DX: I48.0 Paroxysmal atrial fibrillation (principal); J44.9 Chronic obstructive pulmonary disease, unspecified; R60.0 Localized edema; R06.02 Shortness of breath

== ENCOUNTER → 2023-10-03 | Outpatient (REF) | payer MEDICARE, OTHER ==
[2023-10-03 14:50] LABS: HEMATOCRIT 42.6 % (42.0-52.0); HEMOGLOBIN 14.2 g/dl (13.5-17.5); MEAN CORPUSCULAR HGB CONC 33.3 g/dl (32.0-36.5); MEAN CORPUSCULAR VOLUME 99.1 fl (80.0-96.0); PLATELET COUNT, AUTOMATED 291 10^3/uL (150-450); WHITE BLOOD COUNT 7.1 10^3/uL (4.0-10.0)
[2023-10-03 15:16] LABS: PSA SCREENING 0.41 NG/ML (< 4.00)
[2023-10-03 15:20] LABS: ALBUMIN 3.4 G/DL (3.2-5.2); ALKALINE PHOSPHATASE 58 U/L (46-116); ALT/SGPT 16 U/L (7.0-40); AST/SGOT 11 U/L (<34); BILIRUBIN,TOTAL 0.5 MG/DL (0.3-1.2); BLOOD UREA NITROGEN 13 MG/DL (9-23); CARBON DIOXIDE LEVEL 31 MMOL/L (20-31); CHLORIDE LEVEL 106 MMOL/L (98-107); CHOLESTEROL LEVEL 177 MG/DL (<200); CHOLESTEROL RISK RATIO 3.79 (<5); CREATININE FOR GFR 1.07 MG/DL (0.70-1.30); GLOMERULAR FILTRATION RATE > 60.0 (>49); GLUCOSE, FASTING 98 MG/DL (74-106); HDL CHOLESTEROL 46.6 MG/DL (>40); LDL CHOLESTEROL 113.8 MG/DL (<100); NON-HDL-C 130.4 MG/DL; POTASSIUM SERUM 4.2 MMOL/L (3.5-5.1); SODIUM LEVEL 140 MMOL/L (136-145); TOTAL PROTEIN 7.2 G/DL (5.7-8.2); TRIGLYCERIDES LEVEL 83 MG/DL (<150)
== END ==
LOC: M SFHCADAM 10:14
PROVIDERS: ATTEND Family Medicine
DX: E78.5 Hyperlipidemia, unspecified (principal); Z12.5 Encounter for screening for malignant neoplasm of prostate; I11.9 Hypertensive heart disease without heart failure; I48.0 Paroxysmal atrial fibrillation
CPT/HCPCS: 80053; 80061; 85027; G0103

== ENCOUNTER → 2023-10-07 | Outpatient (CLI) | payer MEDICARE, BC | LOC: M PLAIMG 13:12 | PROVIDERS: ATTEND Internal Medicine Pulmonary Disease | DX: R91.1 Solitary pulmonary nodule (principal) ==

== ENCOUNTER → 2024-01-10 | Outpatient (CLI) | payer MEDICARE, BC | LOC: M PLAIMG 07:36 | PROVIDERS: ATTEND Physician Assistant | DX: I77.810 Thoracic aortic ectasia (principal) ==

== ENCOUNTER → 2024-04-28 | Outpatient (CLI) | payer MEDICARE, BC | LOC: M RAD 14:35 | PROVIDERS: ATTEND Internal Medicine Pulmonary Disease | DX: R91.1 Solitary pulmonary nodule (principal) ==

== ENCOUNTER 2024-06-01 08:03 | Inpatient (IN) | payer MEDICARE, BC ==
[2024-06-01] VITALS (15 sets, daily range): BP systolic 117–130; BP diastolic 65–84; TEMP 97.7–98.2; O2SAT 87–96
[~2024-06-01] VITALS: Ht 182.9 cm; Wt 109.9 kg
[~2024-06-01 08:03] MED LIST changes: -ALBU8.5H; +ALBU8.5H PO; -FLUT1BLS8; +FLUT1BLS8 PO; -XARE20TA; +XARE20TA PO
[2024-06-01] MEDS: IPRATROPIUM 0.5MG/ALBUTEROL 2.5MG INH SOL UD 3ML (DUONEB) NEB ONE (08:10)
[2024-06-01] MEDS: ALBUTEROL SULFATE 2.5MG/0.5ML INH NEB SOLN INH ONE (08:10)
[2024-06-01] MEDS ORDERED: ALBUTEROL SULFATE 2.5MG/0.5ML INH NEB SOLN As Ordered ONE (08:11)
[2024-06-01] MEDS: NS 500 ML IV ONE (08:22)
[2024-06-01 08:27] LABS: ABG BASE EXCESS -2.9 (-2.0-2.0); ABG HCO3 21.8 MMOL/L (22.0-26.0); ABG O2 SATURATION 93.4 % (95.0-99.0); ABG PARTIAL PRESSURE CO2 37.8 mmHg (35.0-45.0); ABG PARTIAL PRESSURE O2 73.8 mmHg (75.0-100.0); ABG TOTAL CO2 22.9 MMOL/L (23.0-31.0); ABG pH (ARTERIAL) 7.378 UNITS (7.350-7.450)
[2024-06-01] MEDS ORDERED: METO50TA7 PO (08:29)
[2024-06-01 08:40] LABS: BASO # 0.1 10^3/uL (0.0-0.2); BASO % 0.4 % (0.0-1.0); EOS # 0.1 10^3/uL (0.0-0.5); EOS % 0.7 % (0.0-3.0); HEMATOCRIT 41.4 % (42.0-52.0); HEMOGLOBIN 14.3 g/dl (13.5-17.5); LYMPH # 1.1 10^3/uL (1.5-5.0); MEAN CORPUSCULAR HEMOGLOBIN 32.2 pg (27.0-33.0); MEAN CORPUSCULAR HGB CONC 34.5 g/dl (32.0-36.5); MEAN CORPUSCULAR VOLUME 93.2 fl (80.0-96.0); MONO # 0.6 10^3/uL (0.0-0.8); MONO % 4.4 % (2.0-8.0); NEUTROPHILS # 11.8 10^3/uL (1.5-8.5); NEUTROPHILS % 85.9 % (36.0-66.0); PLATELET COUNT, AUTOMATED 271 10^3/uL (150-450); RED BLOOD COUNT 4.44 10^6/uL (4.30-6.10); WHITE BLOOD COUNT 13.8 10^3/uL (4.0-10.0)
[2024-06-01 09:05] LABS: LIPASE 21 U/L (12-53)
[2024-06-01] MEDS: ACETAMINOPHEN 325 MG TAB PO ONE (09:05)
[2024-06-01] MEDS: cefTRIAXone SOD 2 GM in DEXTROSE 5% (D5W) ADV/MINI-BAG 50 ML IV ONE (09:05)
[2024-06-01 09:06] LABS: INR 1.49; PARTIAL THROMBOPLASTIN TIME 35.9 SECONDS (24.8-34.2); PROTHROMBIN TIME 18.2 SECONDS (12.5-14.5)
[2024-06-01 09:06] LABS: ETHYL ALCOHOL (ETHANOL) 0.127 % (0.000-0.010)
[2024-06-01 09:07] LABS: CPK CREATINE PHOSPHOKINASE 85 U/L (46-171); SALICYLATE LEVEL < 3.0 MG/DL (<30)
[2024-06-01 09:08] LABS: ALBUMIN 2.9 G/DL (3.2-5.2); ALKALINE PHOSPHATASE 65 U/L (40-129); ALT/SGPT 24 U/L (7.0-40); AST/SGOT 14 U/L (<34); BILIRUBIN,DIRECT 0.2 MG/DL (<0.4); BILIRUBIN,TOTAL 0.7 MG/DL (0.3-1.2); BLOOD UREA NITROGEN 11 MG/DL (9-23); CALCIUM LEVEL 8.4 MG/DL (8.3-10.6); CARBON DIOXIDE LEVEL 26 MMOL/L (20-31); CHLORIDE LEVEL 101 MMOL/L (98-107); CK-MB VALUE MASS < 1.0 NG/ML (<3.6); CREATININE FOR GFR 1.03 MG/DL (0.70-1.30); GLOMERULAR FILTRATION RATE > 60.0 (>49); GLUCOSE, FASTING 89 MG/DL (74-106); MB/CK RELATIVE INDEX 1.17 (< OR =4); POTASSIUM SERUM 3.7 MMOL/L (3.5-5.1); SODIUM LEVEL 135 MMOL/L (136-145)
[2024-06-01 09:09] LABS: THYROID STIMULATING HORMONE 0.598 uIU/ML (0.55-4.78); THYROXINE (T4) 5.3 UG/DL (4.5-10.9)
[2024-06-01] MEDS: NS 2,830 ML in IV 1 EA IV ONE (09:10)
[2024-06-01 09:11] LABS: AMYLASE 47 U/L (30-118)
[2024-06-01] MEDS: DOXYCYCLINE HYCLATE 100 MG in DEXTROSE 5% (D5W) MINI-BAG PLU 100 ML IV ONE (09:14)
[2024-06-01 09:23] LABS: PROCALCITONIN 0.64 ng/ml
[2024-06-01 09:58] LABS: CK-MB VALUE MASS < 1.0 NG/ML (<3.6)
[2024-06-01] MEDS ORDERED: OMEP-173 PO (09:58)
[2024-06-01] MEDS ORDERED: BISO10TA14 PO (09:58)
[2024-06-01] MEDS ORDERED: ATOR1TAB21 PO (09:58)
[2024-06-01 09:59] LABS: CPK CREATINE PHOSPHOKINASE 80 U/L (46-171); MB/CK RELATIVE INDEX 1.25 (< OR =4)
[2024-06-01] MEDS ORDERED: HOME MED LIST COMPLETE! XX SCH (10:00)
[2024-06-01 10:28] LABS: APPEARANCE, URINE CLEAR (CLEAR); BACTERIA, URINE AUTO NEGATIVE (NEGATIVE); BILIRUBIN, URINE AUTO NEGATIVE (NEGATIVE); BLOOD, URINE BLOOD NEGATIVE (NEGATIVE); COLOR, URINE YELLOW (YELLOW); GLUCOSE, URINE (UA) AUTO NEGATIVE (NEGATIVE); KETONE, URINE AUTO NEGATIVE (NEGATIVE); LEUKOCYTE ESTERASE, URINE AUTO NEGATIVE (NEGATIVE); NITRITE, URINE AUTO NEGATIVE (NEGATIVE); PROTEIN, URINE AUTO NEGATIVE (NEGATIVE); RBC, URINE AUTO 0 /HPF (0-3); SPECIFIC GRAVITY URINE AUTO 1.005 (1.002-1.035); SQUAMOUS EPITHELIAL CELL UR AU 0 /HPF (0-6); UROBILINOGEN, URINE AUTO 0.2 mg/dL (0.0-2.0); WBC, URINE AUTO 0 /HPF (0-3)
[2024-06-01 10:47] LABS: AMPHETAMINES LEVEL URINE NEGATIVE (NEGATIVE); BARBITURATES URINE NEGATIVE (NEGATIVE)
[2024-06-01 10:48] LABS: BENZODIAZEPINES URINE NEGATIVE (NEGATIVE); CANNABINOIDS URINE NEGATIVE (NEGATIVE); COCAINE METABOLITE URINE NEGATIVE (NEGATIVE); METHADONE URINE NEGATIVE (NEGATIVE); OPIATES URINE NEGATIVE (NEGATIVE); PHENCYCLIDINE URINE NEGATIVE (NEGATIVE)
[2024-06-01] MEDS ORDERED: MOM 30ML SUSPENSION UDC PO PRN (10:50)
[2024-06-01] MEDS ORDERED: ALBUTEROL 90 MCG/ACT 8GM HFA INHALER INH PRN (10:50)
[2024-06-01] MEDS ORDERED: LORazepam 2 MG TAB PO PRN (10:50)
[2024-06-01] MEDS: IPRATROPIUM 0.5MG/ALBUTEROL 2.5MG INH SOL UD 3ML (DUONEB) INH SCH (16:10)
[2024-06-01] MEDS: ADVAIR HFA 115/21MCG INHALER INH SCH (16:13)
[2024-06-01] MEDS: RIVAROXABAN 20MG TAB (XARELTO) PO SCH (16:26)
[2024-06-01] MEDS: ATORVASTATIN 20 MG TAB PO SCH (16:26)
[2024-06-01] MEDS: THIAMINE 100 MG TAB PO SCH (16:26)
[2024-06-01] MEDS: OMEPRAZOLE 20MG CAP PO SCH (16:26)
[2024-06-01] MEDS: NS 1,000 ML IV SCH (16:26)
[2024-06-01] MEDS: FOLIC ACID 1MG TAB PO SCH (16:26)
[2024-06-01] MEDS: DOCUSATE SODIUM 100MG CAPSULE PO SCH (16:26)
[2024-06-01] MEDS: MULTIVITAMINS/MINERALS THERAP 1 TAB PO SCH (16:27)
[2024-06-01] MEDS: bisoproloL fumarate 10 MG TAB PO SCH (16:27)
[2024-06-01] MEDS: MOXIFLOXACIN HCL 400 MG in IV 1 EA IV SCH (16:41)
[2024-06-01] MEDS: ACETAMINOPHEN 325 MG TAB PO PRN (20:47)
[2024-06-02] VITALS (9 sets, daily range): BP systolic 129–140; BP diastolic 69–86; TEMP 97–99.1; O2SAT 9–95
[2024-06-02 05:39] LABS: BASO % 0.2 % (0.0-1.0); LYMPH # 0.5 10^3/uL (1.5-5.0); LYMPH % 4.1 % (24.0-44.0); MEAN CORPUSCULAR HEMOGLOBIN 32.7 pg (27.0-33.0); MEAN CORPUSCULAR HGB CONC 34.8 g/dl (32.0-36.5); MEAN CORPUSCULAR VOLUME 94.2 fl (80.0-96.0); MONO # 0.7 10^3/uL (0.0-0.8); MONO % 5.4 % (2.0-8.0); NEUTROPHILS # 11.8 10^3/uL (1.5-8.5); NEUTROPHILS % 89.8 % (36.0-66.0); PLATELET COUNT, AUTOMATED 181 10^3/uL (150-450); RED BLOOD COUNT 3.42 10^6/uL (4.30-6.10); WHITE BLOOD COUNT 13.1 10^3/uL (4.0-10.0)
[2024-06-02 05:54] LABS: HEMATOCRIT 32.2 % (42.0-52.0); HEMOGLOBIN 11.2 g/dl (13.5-17.5)
[2024-06-02 06:12] LABS: BLOOD UREA NITROGEN 13 MG/DL (9-23); CALCIUM LEVEL 8.5 MG/DL (8.3-10.6); CARBON DIOXIDE LEVEL 26 MMOL/L (20-31); CHLORIDE LEVEL 109 MMOL/L (98-107); GLOMERULAR FILTRATION RATE > 60.0 (>49); GLUCOSE, FASTING 144 MG/DL (74-106); POTASSIUM SERUM 3.6 MMOL/L (3.5-5.1); SODIUM LEVEL 140 MMOL/L (136-145)
[2024-06-02] MEDS: MOXIFLOXACIN 400 MG TAB PO SCH (11:15)
[2024-06-03 04:00] VITALS: BP 129/69; TEMP 97.5; O2SAT 91
[2024-06-03 06:07] VITALS: O2SAT 93
[2024-06-03 06:12] LABS: BASO % 0.2 % (0.0-1.0); EOS % 0.1 % (0.0-3.0); HEMATOCRIT 30.3 % (42.0-52.0); HEMOGLOBIN 10.3 g/dl (13.5-17.5); LYMPH % 11.8 % (24.0-44.0); MEAN CORPUSCULAR HEMOGLOBIN 32.2 pg (27.0-33.0); MEAN CORPUSCULAR VOLUME 94.7 fl (80.0-96.0); MONO # 0.7 10^3/uL (0.0-0.8); NEUTROPHILS % 79.6 % (36.0-66.0); PLATELET COUNT, AUTOMATED 200 10^3/uL (150-450); WHITE BLOOD COUNT 8.8 10^3/uL (4.0-10.0)
[2024-06-03 06:35] LABS: BLOOD UREA NITROGEN 13 MG/DL (9-23); CALCIUM LEVEL 8.6 MG/DL (8.3-10.6); CARBON DIOXIDE LEVEL 27 MMOL/L (20-31); CHLORIDE LEVEL 110 MMOL/L (98-107); CREATININE FOR GFR 0.86 MG/DL (0.70-1.30); GLOMERULAR FILTRATION RATE > 60.0 (>49); GLUCOSE, FASTING 107 MG/DL (74-106); POTASSIUM SERUM 3.3 MMOL/L (3.5-5.1); SODIUM LEVEL 143 MMOL/L (136-145)
[2024-06-03 06:47] LABS: PROCALCITONIN 6.96 ng/ml
[2024-06-03 08:20] VITALS: BP 128/70
[2024-06-03 08:21] VITALS: BP 128/70
[2024-06-03] MEDS ORDERED: KCL 10MEQ/100ML SWI (KRUN) 10 MEQ in IV 1 EA IV ONE (11:15)
[2024-06-03] MEDS ORDERED: KCL 10MEQ IN STERILE WATER 100ML As Ordered ONE (11:21)
[2024-06-03] MEDS ORDERED: MOXI400T11 PO (11:36)
[2024-06-03] MEDS ORDERED: PRED20TA PO (11:38)
[2024-06-03] MEDS ORDERED: IPRA0.00 INH (11:38)
[2024-06-03] MEDS: POTASSIUM CHLORIDE 10MEQ SR TABLET PO ONE (11:39)
[2024-06-03] MEDS: PREVNAR-20 VACCINE 0.5ML SYRINGE IM.IMMUN ONE (12:03)
== END 2024-06-03 13:10 | disposition home or self-care (01) | DRG 871 ==
LOC: EDBD 08:03 → M ED 08:03 → M ED INP 10:48 → M MSPAV 14:03
PROVIDERS: ADMIT Student in an Organized Health Care Education/Training Program; ATTEND Student in an Organized Health Care Education/Training Program
DX: A41.9 Sepsis, unspecified organism (principal); J96.01 Acute respiratory failure with hypoxia; J18.9 Pneumonia, unspecified organism; I50.32 Chronic diastolic (congestive) heart failure; E87.20 Acidosis, unspecified; J44.0 Chronic obstructive pulmonary disease with (acute) lower respiratory infection; I48.0 Paroxysmal atrial fibrillation; I11.0 Hypertensive heart disease with heart failure; F10.129 Alcohol abuse with intoxication, unspecified; K21.9 Gastro-esophageal reflux disease without esophagitis; D64.9 Anemia, unspecified; G47.33 Obstructive sleep apnea (adult) (pediatric); E78.5 Hyperlipidemia, unspecified; Z87.891 Personal history of nicotine dependence; Z79.51 Long term (current) use of inhaled steroids; Z79.899 Other long term (current) drug therapy; Z88.0 Allergy status to penicillin

== ENCOUNTER → 2024-06-11 | Outpatient (CLI) | payer MEDICARE, BC ==
[~2024-06-11] MED LIST changes: -ADV250INH INH; +ADVA1AER9 INH; +ATOR1TAB21 PO; +IPRA0.00 INH; +METO50TA7 PO; +MOXI400T11 PO; +OMEP-173 PO; +PRED20TA PO
== END ==
LOC: M ADAMS 09:49
PROVIDERS: ATTEND Family Medicine
DX: J15.211 Pneumonia due to Methicillin susceptible Staphylococcus aureus (principal)

== ENCOUNTER → 2024-06-11 | Outpatient (REF) | payer MEDICARE, BC ==
[~2024-06-11] MED LIST changes: +ADV250INH INH; -ADVA1AER9 INH
[2024-06-11 14:57] LABS: HEMATOCRIT 40.2 % (42.0-52.0); HEMOGLOBIN 13.4 g/dl (13.5-17.5); MEAN CORPUSCULAR HEMOGLOBIN 32.3 pg (27.0-33.0); MEAN CORPUSCULAR HGB CONC 33.3 g/dl (32.0-36.5); MEAN CORPUSCULAR VOLUME 96.9 fl (80.0-96.0); PLATELET COUNT, AUTOMATED 357 10^3/uL (150-450); RED BLOOD COUNT 4.15 10^6/uL (4.30-6.10); WHITE BLOOD COUNT 8.6 10^3/uL (4.0-10.0)
[2024-06-11 14:59] LABS: ALBUMIN 3.2 G/DL (3.2-5.2); ALKALINE PHOSPHATASE 67 U/L (40-129); ALT/SGPT 20 U/L (7.0-40); AST/SGOT 8 U/L (<34); BILIRUBIN,TOTAL 0.4 MG/DL (0.3-1.2); BLOOD UREA NITROGEN 9 MG/DL (9-23); CARBON DIOXIDE LEVEL 30 MMOL/L (20-31); CHLORIDE LEVEL 108 MMOL/L (98-107); CREATININE FOR GFR 1.02 MG/DL (0.70-1.30); GLOMERULAR FILTRATION RATE > 60.0 (>49); GLUCOSE, FASTING 92 MG/DL (74-106); POTASSIUM SERUM 4.2 MMOL/L (3.5-5.1); SODIUM LEVEL 143 MMOL/L (136-145); TOTAL PROTEIN 7.3 G/DL (5.7-8.2)
== END ==
LOC: M SFHCADAM 09:44
PROVIDERS: ATTEND Family Medicine
DX: J15.211 Pneumonia due to Methicillin susceptible Staphylococcus aureus (principal)

== ENCOUNTER 2024-06-24 09:59 | Day surgery (SDC) | payer MEDICARE, BC ==
[~2024-06-24] VITALS: Ht 182.9 cm; Wt 106.0 kg
[~2024-06-24 09:59] MED LIST changes: -ADV250INH INH; +ADVA1AER9 INH
[2024-06-24] MEDS ORDERED: propofoL 200 MG/20 ML VIAL As Ordered ONE (10:16)
[2024-06-24] MEDS ORDERED: LIDOCAINE 2% 100MG/5ML SDV (FOR ANES.) As Ordered ONE (10:16)
[2024-06-24] MEDS ORDERED: fentaNYL 100 MCG/2 ML INJECTION As Ordered ONE (10:22)
[2024-06-24 11:21] VITALS: TEMP 98
[2024-06-24 11:40] VITALS: BP 114/75; O2SAT 92
== END 2024-06-24 11:52 | disposition home or self-care (01) ==
LOC: M OPP 09:59
PROVIDERS: ATTEND Internal Medicine Gastroenterology
DX: Z12.11 Encounter for screening for malignant neoplasm of colon (principal); K57.30 Diverticulosis of large intestine without perforation or abscess without bleeding; K64.0 First degree hemorrhoids; K29.50 Unspecified chronic gastritis without bleeding; R12 Heartburn; Z86.0100 Personal history of colon polyps, unspecified; I10 Essential (primary) hypertension; I48.91 Unspecified atrial fibrillation; E78.00 Pure hypercholesterolemia, unspecified; J44.9 Chronic obstructive pulmonary disease, unspecified; G47.30 Sleep apnea, unspecified; Z79.899 Other long term (current) drug therapy; Z79.01 Long term (current) use of anticoagulants; Z79.51 Long term (current) use of inhaled steroids; Z88.0 Allergy status to penicillin; Z87.891 Personal history of nicotine dependence
CPT/HCPCS: 43239; 88305; G0105; J3010

== ENCOUNTER → 2024-07-10 | Outpatient (REF) | payer MEDICARE, BC ==
[2024-07-10 13:04] LABS: HEMATOCRIT 40.9 % (42.0-52.0); HEMOGLOBIN 13.3 g/dl (13.5-17.5); MEAN CORPUSCULAR HEMOGLOBIN 31.8 pg (27.0-33.0); MEAN CORPUSCULAR HGB CONC 32.5 g/dl (32.0-36.5); MEAN CORPUSCULAR VOLUME 97.8 fl (80.0-96.0); PLATELET COUNT, AUTOMATED 311 10^3/uL (150-450); RED BLOOD COUNT 4.18 10^6/uL (4.30-6.10); WHITE BLOOD COUNT 6.8 10^3/uL (4.0-10.0)
[2024-07-10 13:15] LABS: HEMOGLOBIN A1c 5.4 % (4.0-6.0)
[2024-07-10 13:36] LABS: ALBUMIN 3.1 G/DL (3.2-5.2); ALKALINE PHOSPHATASE 64 U/L (40-129); ALT/SGPT 18 U/L (7.0-40); AST/SGOT 12 U/L (<34); BILIRUBIN,TOTAL 0.4 MG/DL (0.3-1.2); BLOOD UREA NITROGEN 11 MG/DL (9-23); CARBON DIOXIDE LEVEL 29 MMOL/L (20-31); CHLORIDE LEVEL 106 MMOL/L (98-107); CHOLESTEROL LEVEL 157 MG/DL (<200); CHOLESTEROL RISK RATIO 3.56 (<5); CREATININE FOR GFR 0.96 MG/DL (0.70-1.30); GLOMERULAR FILTRATION RATE > 60.0 (>49); GLUCOSE, FASTING 95 MG/DL (74-106); HDL CHOLESTEROL 44.1 MG/DL (>40); LDL CHOLESTEROL 86.5 MG/DL (<100); NON-HDL-C 112.9 MG/DL; POTASSIUM SERUM 4.1 MMOL/L (3.5-5.1); SODIUM LEVEL 143 MMOL/L (136-145); TOTAL PROTEIN 7.3 G/DL (5.7-8.2); TRIGLYCERIDES LEVEL 132 MG/DL (<150)
[2024-07-10 13:38] LABS: THYROID STIMULATING HORMONE 1.438 uIU/ML (0.55-4.78)
[2024-07-10 13:39] LABS: FREE T4 1.14 NG/DL (0.89-1.76)
== END ==
LOC: M SFHCADAM 08:42
PROVIDERS: ATTEND Family Medicine
DX: E78.5 Hyperlipidemia, unspecified (principal); I48.0 Paroxysmal atrial fibrillation; Z13.1 Encounter for screening for diabetes mellitus

== ENCOUNTER → 2024-08-12 | Outpatient (CLI) | payer MEDICARE, BC | LOC: M PLAIMG 10:12 | PROVIDERS: ATTEND Internal Medicine Pulmonary Disease | DX: R91.1 Solitary pulmonary nodule (principal); J43.9 Emphysema, unspecified; J84.10 Pulmonary fibrosis, unspecified ==

== ENCOUNTER → 2024-11-17 | Outpatient (CLI) | payer MEDICARE, BC | LOC: M RAD 07:17 | PROVIDERS: ATTEND Family Medicine | DX: R91.1 Solitary pulmonary nodule (principal) ==

== ENCOUNTER → 2025-02-04 | Outpatient (REF) | payer MEDICARE, BC ==
[2025-02-04 16:04] LABS: PLATELET COUNT, AUTOMATED 292 10^3/uL (150-450)
[2025-02-04 16:08] LABS: ALT/SGPT 17.0 U/L (7.0-40); AST/SGOT 17.0 U/L (<34); CALCIUM LEVEL 9.1 MG/DL (8.3-10.6); CARBON DIOXIDE LEVEL 29.0 MMOL/L (20-31); CHLORIDE LEVEL 104.0 MMOL/L (98-107); CHOLESTEROL LEVEL 138.0 MG/DL (<200); CHOLESTEROL RISK RATIO 2.79 (<5); CREATININE FOR GFR 1.04 MG/DL (0.70-1.30); GLOMERULAR FILTRATION RATE 78.7 (>49); LDL CHOLESTEROL 68.0 MG/DL (<100); NON-HDL-C 88.6 MG/DL; POTASSIUM SERUM 4.9 MMOL/L (3.5-5.1); PSA SCREENING 0.44 NG/ML (< 4.00); SODIUM LEVEL 142.0 MMOL/L (136-145); TRIGLYCERIDES LEVEL 103.0 MG/DL (<150)
[2025-02-04 16:57] LABS: ESTIMATED AVERAGE GLUCOSE 111.0 MG/DL (60-110)
== END ==
LOC: M SFHCADAM 09:12
PROVIDERS: ATTEND Family Medicine
DX: I11.9 Hypertensive heart disease without heart failure (principal); E78.5 Hyperlipidemia, unspecified; I48.0 Paroxysmal atrial fibrillation; Z13.1 Encounter for screening for diabetes mellitus; Z12.5 Encounter for screening for malignant neoplasm of prostate
CPT/HCPCS: 80053; 80061; 83036; 83880; 85027; G0103

== ENCOUNTER → 2025-04-20 | Outpatient (CLI) | payer MEDICARE, BC | LOC: M PLAIMG 15:52 | PROVIDERS: ATTEND Physician Assistant | DX: R06.02 Shortness of breath (principal) ==

== ENCOUNTER → 2025-05-13 | Outpatient (CLI) | payer MEDICARE, BC | LOC: M PLAIMG 10:17 | PROVIDERS: ATTEND Internal Medicine Pulmonary Disease | DX: R91.8 Other nonspecific abnormal finding of lung field (principal) ==

== ENCOUNTER → 2025-07-01 | Outpatient (CLI) | payer MEDICARE, BC | LOC: M PLAIMG 13:39 | PROVIDERS: ATTEND Internal Medicine Pulmonary Disease | DX: R91.8 Other nonspecific abnormal finding of lung field (principal); J43.8 Other emphysema; R91.1 Solitary pulmonary nodule ==